=== PATIENT | female | born 1970 ===

== ENCOUNTER 2017-09-19 14:04 | Emergency (ER) | payer MEDICAID ==
[2017-09-19 14:04] VITALS: BMI 41.3
[2017-09-19 14:13] VITALS: BP 106/74; PULSE 87; RESP 16; TEMP 97; O2SAT 98
--- NOTE | 2017-09-19 14:24 | ED PDOC ---
Lower Extremity Pain/Injury Time Seen by Provider: 09/19/17 14:14 Chief Complaint (Nursing): Lower Extremity Problem/Injury Chief Complaint (Provider): Left heel pain History Per: Patient History/Exam Limitations: no limitations Onset/Duration Of Symptoms: Days (2) Current Symptoms Are (Timing): Still Present Additional Complaint(s): Patient is a 47 y/o female with a past medical history of diabetes and hypertension presenting to the emergency department for left heel pain x2 days. Reports that the pain started yesterday after stepping off of a bus and states that the pain begins in her left heel and radiates to her posterior left thigh. Denies any foreign body penetration, open wounds, or other complaints. PCP: Dr. Korey Frost Past Medical History Reviewed: Historical Data, Nursing Documentation, Vital Signs Vital Signs: Last Vital Signs Temp 97.0 F L 09/19/17 14:10 Pulse 87 09/19/17 14:10 Resp 16 09/19/17 14:10 BP 106/74 09/19/17 14:10 Pulse Ox 98 09/19/17 14:10 - Medical History PMH: Diabetes (Type I and II, diet controlled), GERD, HTN Denies: Asthma, Back Problems, Chronic Kidney Disease - Surgical History Surgical History: Cholecystectomy, Tonsillectomy (AGE 2) - Family History Family History: States: Unknown Family Hx - Immunization History Hx Tetanus Toxoid Vaccination: No Hx Influenza Vaccination: Yes Hx Pneumococcal Vaccination: Yes - Home Medications Home Medications: Ambulatory Orders Medication Instructions Recorded Hydrochlorothiazide/Valsarta 1 tab PO DAILY 01/21/14 [Diovan Hct 12.5 mg-160 mg] Omeprazole 40 mg PO DAILY 01/21/14 Multivit,Iron,Min 5/Folic Acid 1 tab PO HS 05/25/15 [Strovite Forte Caplet] Docusate Sodium [Colace] 100 mg PO DAILY PRN 11/08/15 Tramadol Hydrochloride [Tramadol] 50 mg PO Q8H PRN 11/08/15 Pantoprazole [Protonix] 40 mg PO DAILY #0 ect 11/09/15 oxyCODONE/Acetaminophen [Percocet 1 ea PO Q6 PRN #10 tab 08/27/16 5/325 mg Tab] Ibuprofen [Motrin] 400 mg PO Q6 #30 tab 09/19/17 - Allergies Allergies/Adverse Reactions: Allergies Allergy/AdvReac Type Severity Reaction Status Date / Time No Known Allergies Allergy Verified 01/21/17 14:14 Review of Systems ROS Statement: Except As Marked, All Systems Reviewed And Found Negative Musculoskeletal: Positive for: Foot Pain (left heel pain with no open wounds) Physical Exam - Reviewed Nursing Documentation Reviewed: Yes Vital Signs Reviewed: Yes - Physical Exam Appears: Positive for: Well, Non-toxic, No Acute Distress Head Exam: Positive for: ATRAUMATIC, NORMAL INSPECTION, NORMOCEPHALIC Skin: Positive for: Normal Color, Warm, Dry Eye Exam: Positive for: Normal appearance Neck: Positive for: Normal Cardiovascular/Chest: Positive for: Regular Rate, Rhythm Respiratory: Negative for: Accessory Muscle Use, Respiratory Distress Pulses-Dorsalis Pedis (L): 2+ Pulses-Dorsalis Pedis (R): 2+ Pulses-Post. Tibialis (L): 2+ Pulses-Post. Tibialis (R): 2+ Extremity: Positive for: Normal ROM, Calf Tenderness (left), Swelling (mild on left posterior foot compared to right foot) Neurologic/Psych: Positive for: Alert, Oriented (x3) - ECG O2 Sat by Pulse Oximetry: 98 (RA) Pulse Ox Interpretation: Normal Medical Decision Making Medical Decision Making: Time: 14:15 Initial impression: Left heel pain Initial plan: Left foot x-ray Duplex lower extremities 14:54 Left foot x-ray reviewed. Findings noted as follows: BONES: No fracture identified. Plantar calcaneal spur noted. JOINTS: Normal. SOFT TISSUES: Normal. OTHER FINDINGS: None. IMPRESSION: Unremarkable. US: negatie for DVT pt advised to f.u with pmd, anat surgical shoe and f./u with podiatry ~ Scribe Attestation: Documented by Naomi Tate, acting as a scribe for SHANEKA Mobley. Provider Scribe Attestation: All medical record entries made by the Scribe were at my direction and personally dictated by me. I have reviewed the chart and agree that the record accurately reflects my personal performance of the history, physical exam, medical decision making, and the department course for this patient. I have also personally directed, reviewed, and agree with the discharge instructions and disposition. Disposition - Clinical Impression Clinical Impression: Plantar fasciitis - Patient ED Disposition Is Patient to be Admitted: No Counseled Patient/Family Regarding: Studies Performed, Diagnosis, Need For Followup, Rx Given - Disposition Referrals: Podiatry Clinic [Outside] Disposition: Routine/Home Disposition Time: 18:13 Condition: STABLE Prescriptions: Ibuprofen [Motrin] 400 mg PO Q6 #30 tab Instructions: Plantar Fasciitis (ED) Print Language: TOGOLESE
--- NOTE | 2017-09-19 14:56 | RAD ---
PROCEDURE: Left Foot Radiographs. HISTORY: foot pain COMPARISON: None. FINDINGS: BONES: No fracture identified. Plantar calcaneal spur noted. JOINTS: Normal. SOFT TISSUES: Normal. OTHER FINDINGS: None. IMPRESSION: Unremarkable.
--- NOTE | 2017-09-19 18:20 | US ---
HISTORY: calf pain . PRIORS: None. FINDINGS: 2-D, color and duplex Doppler analysis of the lower extremity venous circulation using routine protocol from the femoral veins through the popliteal veins. Venous compressibility: Normal. Flow and augmentation patterns: Normal. Visualized veins upper third of calf: Normal. Rankin cyst: None. IMPRESSION: No sonographic or Doppler evidence for DVT in left lower extremity.
== END 2017-09-19 19:43 | disposition home or self-care (01) ==
LOC: H.ER 14:04
DX: M72.2 Plantar fascial fibromatosis (principal); I10 Essential (primary) hypertension; K21.9 Gastro-esophageal reflux disease without esophagitis; Z79.4 Long term (current) use of insulin

== ENCOUNTER 2017-11-20 07:29 | Day surgery (SDC) | payer MEDICAID ==
[2017-11-14 15:46] VITALS: BMI 43.5
[2017-11-20 08:54] VITALS: RESP 18
[2017-11-20] MEDS ORDERED: Lactated Ringer's 1,000 ML IV ONE ×2 (08:55→10:52)
[2017-11-20] MEDS ORDERED: Bupivacaine 0.5% Inj(30mL) IJ ONE (09:09)
[2017-11-20] MEDS ORDERED: Lidocaine 1% Inj (20ml) IJ ONE (09:09)
--- NOTE | 2017-11-20 09:09 | CP.PCM.PN ---
Subjective - Date & Time of Evaluation Date of Evaluation: 11/20/17 Time of Evaluation: 08:45 - Subjective Subjective: Podiatry Progress Note - Dr. Estevez 47 year old female patient PMHx HTN, DM, hypercholesterolemia seen and evaluated in [facility] for pre-operative evaluation for left tarsal tunnel decompression with excision of soft tissue mass by Dr. Estevez today. Patient has been having a lot of pain in her left foot, especially with ambulation, and has exhausted conservative treatment and now opts for surgical intervention. NPO status confirmed. Patient is NAD and AAOx3, denies n/v/f/c/sob/cp. Objective - Vital Signs/Intake and Output Vital Signs (last 24 hours): Temp Pulse Resp BP Pulse Ox 97.8 F 74 18 113/83 97 11/20/17 08:52 11/20/17 08:52 11/20/17 08:52 11/20/17 08:52 11/20/17 08:52 - Constitutional Appears: Well, Non-toxic, No Acute Distress - Extremities Exam Additional comments: VASC: DP and PT pulses palpable 2/4 b/l. CFT WNL. TG WNL. Perimalleolar edema noted. NEURO: Gross sensation intact. +Tinel's sign left foot DERM: No open lesions noted. Skin appears well hydrated. ORTHO: +Tinel's sign left foot - Neurological Exam Neurological Exam: Alert, Awake, Oriented x3 - Psychiatric Exam Psychiatric exam: Normal Affect, Normal Mood Assessment and Plan - Assessment and Plan (Free Text) Assessment: 47 year old female with tarsal tunnel syndrome and soft tissue mass to medial ankle, left foot Plan: Pt was seen and examined in [facility] Pt NPO status was confirmed All Pre-op testing and clearance was in the chart Pt has exhausted all conservative treatment at this time and is opting for surgical intervention Pt was explained procedure and post-operative course All pt's questions were answered to satisfaction No guarantees were made Pt understands all risks, benefits and complications of procedure Pt will follow-up with Dr. Estevez
--- NOTE | 2017-11-20 09:09 | CP.SDSHP ---
Same Day Surgery H & P - History Proposed Procedure: Left foot tarsal tunnel decompression, excision benign tumor/cyst Pre-Op Diagnosis: Left foot tarsal tunnel syndrome, soft tissue mass - Previous Medical/Surgical History Cardiac: Hypertension Endocrine/Metabolic: Diabetes, Obesity Pain: 4.Moderate Pain Previous Surgical History: Hysterectomy - Allergies Allergies: Allergies No Known Allergies Allergy (Verified 11/20/17 08:02) - Physical Exam Vital Signs: Vital Signs 11/20/17 08:52 Temperature 97.8 F Pulse Rate 74 Respiratory 18 Rate Blood Pressure 113/83 O2 Sat by Pulse 97 Oximetry Mental Status: Alert & Oriented x3 Neuro: WNL - {Optional Preform as Required} Integument: WNL : Other (positive Tinel's sign left foot) - Impression Impression: Pt was seen and examined in [facility]. Pt NPO status was confirmed. All Pre-op testing and clearance was in the chart. Pt has exhausted all conservative treatment at this time and is opting for surgical intervention. Pt was explained procedure and post-operative course. All pt's questions were answered to satisfaction. No guarantees were made. Pt understands all risks, benefits and complications of procedure. Pt will follow-up with Dr. Estevez Pt. Evaluated Today:Candidate for Anesthesia & Procedure: Yes Short Stay Discharge - Short Stay Discharge Admitting Diagnosis/Reason for Visit: G57.52/M79.9 Disposition: HOME/ ROUTINE Referrals: Korey Frost MD [Primary Care Provider] - Follow-up: Follow up in Dr. Estevez's office this 11/22/17 for first follow up visit Progress Note/Discharge Note with Instructions: -Patient in good/stable condition for discharge home -Pt to resume medications per medical reconciliation -Resume regular diet Please keep dressing clean, dry, & intact to surgical site -Use plastic bag over bandage for showering -Wear post op shoe at all times when ambulating -Call clinic if you see signs of infection (redness, swelling, malodor) -Please make an appointment to see Dr. Estevez in office this 11/22/17 for post-op check
[2017-11-20] MEDS ORDERED: ceFAZolin IV 1 gm in Dextrose 1 GM/50 ML BAG IVPB ONE (09:30)
[2017-11-20] MEDS ORDERED: Bupivacaine 0.5% Inj(30mL) ONE (09:30)
[2017-11-20] MEDS ORDERED: Lidocaine 1% Inj (20ml) ONE (09:30)
[2017-11-20] MEDS ORDERED: Midazolam 2 MG/2 ML VIAL ONE (09:43)
[2017-11-20] MEDS ORDERED: Propofol 10 mg/ml Inj (20 ML) ONE (09:43)
[2017-11-20] MEDS ORDERED: Succinylcholine 200 mg/10 ml Inj IV ONE (09:43)
[2017-11-20] MEDS ORDERED: Lidocaine 1% 5ml Abboject IV ONE (09:43)
[2017-11-20] MEDS ORDERED: Rocuronium 10 mg/ml (5 ml) ONE (09:43)
[2017-11-20] MEDS ORDERED: Bupivacaine 0.5% 50 ML IJ ONE (11:30)
[2017-11-20] MEDS ORDERED: Triamcinolone Acetonide 40 mg/mL Inj IM ONE (11:30)
--- NOTE | 2017-11-20 11:44 | PCM.SURG1 ---
Surgeon's Initial Post Op Note - Surgeon's Notes Surgeon: Dr. Estevez Solder Leveler [employer]: Claudia Campos, PGY2 Type of Anesthesia: General Endo Anesthesia Administered By: Dr. Joshi Pre-Operative Diagnosis: Left foot tarsal tunnel syndrome, soft tissue mass medial ankle Operative Findings: See operative report. Materials: Allowrap, 4-0 vicryl, 4-0 nylon. Injectables: 0.5% marcaine plain 20cc, Kenalog-40 1cc Post-Operative Diagnosis: Left foot tarsal tunnel syndrome, soft tissue mass medial ankle Operation Performed: Left tarsal tunnel release, excision of soft tissue mass Specimen/Specimens Removed: Soft tissue mass + adipose Estimated Blood Loss: EBL {In ML}: 1 Blood Products Given: N/A Drains Used: No Drains Post-Op Condition: Good Date of Surgery/Procedure: 11/20/17 Time of Surgery/Procedure: 09:45
[2017-11-20] MEDS ORDERED: Oxycodone/Acetaminophen 5/325 mg Tab PO PRN ×2 (11:47)
[2017-11-20] MEDS ORDERED: Lactated Ringer's 1,000 ML IV SCH (12:00)
[2017-11-20] MEDS ORDERED: HYDROmorphone 0.5 mg/0.5 ml ISec IVP PRN (12:00)
[2017-11-20 16:00] VITALS: BP 124/76; PULSE 78; TEMP 97.8; O2SAT 100
[2017-11-20] MEDS ORDERED: Multivitamin With Minerals Tab PO SCH (22:00)
[2017-11-21] MEDS ORDERED: Pantoprazole 40 mg EC Tab PO SCH (09:00)
[2017-11-21] MEDS ORDERED: HYDROCHLOROTHIAZIDE PO SCH (09:00)
[2017-11-21] MEDS ORDERED: [UNRECOGNIZED DRUG - OTHER] PO SCH (09:00)
--- NOTE | 2017-11-22 17:31 | OP ---
PROCEDURE DATE: 11/20/2017 SURGEON: Mustapha Estevez DPM JUNIOR ENGINEER: Claudia Campos DPM, PGY2 TYPE OF ANESTHESIA: General. ANESTHESIA ADMINISTERED BY: Leif Joshi MD. PREOPERATIVE DIAGNOSES: Left foot painful soft tissue mass and tarsal tunnel syndrome. POSTOPERATIVE DIAGNOSES: Left foot painful soft tissue mass and tarsal tunnel syndrome. PROCEDURE: Left foot excision of soft tissue mass and decompression of tarsal tunnel. INDICATIONS: The patient is a 47-year-old female with the above-mentioned diagnosis. The patient has exhausted multiple points of conservative treatment at this time and now requires surgical intervention. The patient signed the consent after careful explanation of risks, benefits, complications, and alternatives for surgical procedure. No guarantees were given or implied. PREPARATION: The patient was brought into the operating room and placed on the operating room table in a supine position. Time-out was performed for identification of the correct patient and procedure. After induction of general anesthesia, the left foot and ankle were then prepped and draped in normal sterile manner. Thigh tourniquet was inflated to 350 mmHg and the procedure began. DESCRIPTION OF PROCEDURE: Attention was directed to the left posterior heel where a 7 cm curvilinear incision was made, posterior and proximal to the tibia, down to the level of the navicular bone using a #15 blade. The incision was then deepened using sharp and blunt dissection through subcutaneous tissues, being careful to identify and retract all vital neurovascular structures. All bleeders were ligated and cauterized as necessary. The flexor retinaculum was then identified and released. At this time, the flexor tendons were identified and retracted dorsally. The posterior tibial nerve was then identified and with carefully dissection, a soft tissue mass was palpated and gently excised with a hemostat and tenotomy scissors. The soft tissue mass was then passed off of the operative field and sent to pathology. At this time, the wound was then copiously irrigated with sterile normal saline. A 4 x 4 cm allograft graft was then placed along the . The subcutaneous tissue was then reapproximated with 3-0 and 4-0 Vicryl and the skin was reapproximated with 4-0 nylon. A postoperative injection of 20 mL of 0.5% Marcaine plain and 1 mL of Kenalog-10 was given in a local block type fashion to the left foot. Postoperative bandages included Xeroform, 4x4 gauze, Merly, and Aris bandage. POSTOPERATIVE CONDITION: The patient tolerated the anesthesia and the procedure well and was escorted to the recovery room with vital signs stable and neurovascular status intact. The patient will follow up with Dr. Estevez in his office on an outpatient basis. Claudia Campos DPM Mustapha Estevez DPM
== END 2017-11-20 16:00 | disposition home or self-care (01) ==
LOC: H.OPSURG 07:29
PROVIDERS: ATTEND Podiatrist Foot & Ankle Surgery
DX: G57.52 Tarsal tunnel syndrome, left lower limb (principal); M79.9 Soft tissue disorder, unspecified; E66.9 Obesity, unspecified; E11.9 Type 2 diabetes mellitus without complications; E78.5 Hyperlipidemia, unspecified; I10 Essential (primary) hypertension
CPT/HCPCS: 28035; 28039; 82948; 88305; 97116; 97162; G8978; G8979; G8980; J0330; J0690; J1170; J2250; J2405; J2704; J3010; J3301; J7120

== ENCOUNTER 2018-02-01 14:28 | Inpatient (IN) | payer MEDICAID ==
[2018-02-01] MEDS ORDERED: Piperacillin/Tazobact 3.375 GM in Sodium Chloride 0.9% 100 ML IVPB STA (14:50)
[2018-02-01] MEDS ORDERED: Morphine 4 MG/ML VIAL IVP STA (14:51)
[2018-02-01] MEDS ORDERED: Piperacillin/Tazobact 3.375 gm Inj IVPB ONE (15:00)
[2018-02-01] MEDS ORDERED: Morphine 4 MG/ML VIAL ONE (15:00)
[2018-02-01 16:13] LABS: VENOUS BLOOD GAS BASE EXCESS 2.9 mmol/L (0.0-2.0); VENOUS BLOOD GAS PCO2 43 mmHg (40-60); VENOUS BLOOD GAS PO2 19 mm/Hg (30-55); VENOUS BLOOD PH 7.42 (7.32-7.43)
[2018-02-01] MEDS ORDERED: Sodium Chloride 0.9% 1,000 ML IV STA (16:30)
[2018-02-01 16:31] LABS: BASO % 0.4 % (0.0-2.0); EOS # 0.1 K/uL (0.0-0.7); EOS % 1.1 % (0.0-4.0); HEMOGLOBIN 14.2 g/dL (12.0-16.0); LYMPH # 1.6 K/uL (1.0-4.3); LYMPH % 20.5 % (20.0-40.0); MEAN CELL VOLUME 85.8 fl (81.0-99.0); MEAN CORPUSCULAR HEMOGLOBIN 29.8 pg (27.0-31.0); MEAN CORPUSCULAR HGB CONC 34.7 g/dL (33.0-37.0); MONO # 0.4 K/uL (0.0-0.8); MONO % 5.6 % (0.0-10.0); NEUT # 5.6 K/uL (1.8-7.0); NEUT % 72.4 % (50.0-75.0); NRBC % 0.1 % (0.0-0.0); RBC 4.76 Mil/uL (3.80-5.20); RED CELL DISTRIBUTION WIDTH 14.2 % (11.5-14.5); WHITE BLOOD COUNT 7.7 K/uL (4.8-10.8)
[2018-02-01 16:49] LABS: ALB/GLOB RATIO 1.1 (1.0-2.1); ALBUMIN 4.2 g/dL (3.5-5.0); ALT/SGPT 37 U/L (9-52); AST/SGOT 30 U/L (14-36); BLOOD UREA NITROGEN 20 mg/dl (7-17); CALCIUM 9.9 mg/dL (8.4-10.2); GFR AFRICAN-AMERICAN > 60; GFR NON-AFRICAN AMERICAN > 60
[2018-02-01] MEDS ORDERED: Enoxaparin 120 mg Syringe SC STA (17:06)
--- NOTE | 2018-02-01 17:39 | ED PDOC ---
HPI: General Adult Time Seen by Provider: 02/01/18 14:38 Chief Complaint (Nursing): Lower Extremity Problem/Injury History Per: Patient Additional Complaint(s): Pt. states for the past 2 weeks she's had L calf pain. States on 11/19/2018 she had a benign tumor removed from her L ankle by Dr. Estevez, senior information developer. States she went to see Dr. Estevez on and informed him of the pain and today pain became wore. Also reports surgical wound has opened. Denies fever, chest pain, SOB, palpitations, hx of DVT or PE. Past Medical History Reviewed: Historical Data, Nursing Documentation, Vital Signs Vital Signs: Last Vital Signs Temp 98.3 F 02/01/18 18:04 Pulse 96 H 02/01/18 18:04 Resp 15 02/01/18 18:04 BP 104/56 L 02/01/18 18:35 Pulse Ox 100 02/01/18 19:50 - Medical History PMH: Arthritis, Diabetes (Type I and II, diet controlled), Gastritis, GERD, HTN Denies: Asthma, Back Problems, Chronic Kidney Disease - Surgical History Surgical History: Cholecystectomy, Tonsillectomy (AGE 2) - Family History Family History: States: No Known Family Hx - Immunization History Hx Tetanus Toxoid Vaccination: No Hx Influenza Vaccination: Yes Hx Pneumococcal Vaccination: Yes - Home Medications Home Medications: Ambulatory Orders Medication Instructions Recorded Hydrochlorothiazide/Valsarta 1 tab PO DAILY 01/21/14 [Diovan Hct 12.5 mg-160 mg] Omeprazole 40 mg PO DAILY 01/21/14 Multivit,Iron,Min 5/Folic Acid 1 tab PO HS 05/25/15 [Strovite Forte Caplet] Docusate Sodium [Colace] 100 mg PO DAILY PRN 11/08/15 Repaglinide [Prandin] 2 mg PO TID 11/20/17 - Allergies Allergies/Adverse Reactions: Allergies Allergy/AdvReac Type Severity Reaction Status Date / Time No Known Allergies Allergy Verified 11/20/17 08:02 Review of Systems ROS Statement: Except As Marked, All Systems Reviewed And Found Negative Musculoskeletal: Positive for: Leg Pain Physical Exam - Reviewed Nursing Documentation Reviewed: Yes Vital Signs Reviewed: Yes - Physical Exam Appears: Positive for: Well, Non-toxic, No Acute Distress Head Exam: Positive for: ATRAUMATIC, NORMAL INSPECTION, NORMOCEPHALIC Skin: Positive for: Normal Color, Warm. Negative for: Rash Eye Exam: Positive for: EOMI, Normal appearance, PERRL ENT: Positive for: Normal ENT Inspection Neck: Positive for: Normal, Painless ROM Cardiovascular/Chest: Positive for: Regular Rate, Rhythm. Negative for: Tachycardia Respiratory: Positive for: Normal Breath Sounds. Negative for: Respiratory Distress Gastrointestinal/Abdominal: Positive for: Normal Exam, Bowel Sounds, Soft. Negative for: Tenderness Back: Positive for: Normal Inspection Extremity: Positive for: Normal ROM, Other (L medial foot with open wound and yellow discharge noted with mild surrounding erythema or edema noted) Neurologic/Psych: Positive for: Alert, Oriented. Negative for: Aphasia, Facial Droop - Laboratory Results Result Diagrams: 02/01/18 15:17 02/01/18 15:17 - ECG O2 Sat by Pulse Oximetry: 100 - Progress ED Course And Treament: Labs ordered. Pt. evaluated by Jennifer podiatry resident, who spoke with Dr. Estevez and requests ESR, CRP, Zosyn, Vancomycin, and duplex LLE to be done. Pt. placed on surveillance monitor. 1630 Repeat BP: 97/53. Pt. AOx3. Denies weakness, chest pain, SOB. Pt. in no distress. IV NS bolus ordered. 163 Duplex LLE vein: Evidence of DVT within the superficial femoral and popliteal veins as above. The common femoral and posterior tibial veins are patent. Case d/w Dr. Hopson who recommends Lovenox and CTA of chest w/ IV contrast to be ordered. Lovenox ordered. Repeta BP: 102/77 1745 Case d/w Dr. Shine and arrangements made for admission. 1940 CTA chest w/ IV contrast: Limited examination due to inadequate contrast opacification of the pulmonary arterial system/bolus timing.No evidence of acute pulmonary embolism up to the proximal lobar level.evaluation beyond the lobar level cannot be made with accuracy in this examination. Correlate clinically. Disposition - Clinical Impression Clinical Impression: Deep vein thrombosis, Surgical wound infection - Patient ED Disposition Is Patient to be Admitted: Yes - Disposition Disposition Time: 17:45 Condition: STABLE
--- NOTE | 2018-02-01 17:41 | US ---
PROCEDURE: Left lower extremity DVT dated 02/01/2018 HISTORY: as requested by Dr. Estevez COMPARISON: Comparison made with prior study dated 09/19/2017 TECHNIQUE: Duplex interrogation of the the deep veins left lower extremity performed in standard FINDINGS: The common femoral vein is patent and compressible. The the supra official femoral vein as well as popliteal vein contain echogenic thrombus an are not compressible. Posterior tibial vein is patent. IMPRESSION: Evidence of DVT within the superficial femoral and popliteal veins as above. The common femoral and posterior tibial veins are patent.
[2018-02-01 18:05] LABS: SQUAMOUS EPITHIAL 12 /hpf (0-5); URINE BACTERIA OCC (<OCC); URINE BILIRUBIN NEGATIVE (NEGATIVE); URINE BLOOD NEGATIVE (NEGATIVE); URINE CLARITY CLOUDY (Clear); URINE COLOR YELLOW (YELLOW); URINE GLUCOSE (UA) NEG (Normal); URINE LEUKOCYTE ESTERASE NEG Leu/uL (Negative); URINE PROTEIN NEGATIVE (NEGATIVE); URINE UROBILINOGEN 0.2-1.0 mg/dL (0.2-1.0)
[2018-02-01 18:06] LABS: PARTIAL THROMBOPLASTIN TIME 32.3 Seconds (25.6-37.1)
[2018-02-01] MEDS ORDERED: HYDROmorphone 0.5 mg/0.5 ml ISec IVP STA (18:18)
[2018-02-01] MEDS ORDERED: Iodixanol 320 MG/ML 100 ML BOTTLE IV ONE (18:20)
[2018-02-01] MEDS ORDERED: Silver Sulfadiazine 1% CREAM (50 gm) TOP STA (18:21)
[2018-02-01] MEDS ORDERED: Silver Sulfadiazine 1% CREAM (50 gm) ONE (18:23)
[2018-02-01] MEDS ORDERED: HYDROmorphone 0.5 mg/0.5 ml ISec ONE (18:37)
--- NOTE | 2018-02-01 19:49 | CP.PCM.CON ---
History of Present Illness - History of Present Illness History of Present Illness: Podiatry Consult Note - Dr. Estevez 48 year old female patient PMHx HTN, DM, hypercholesterolemia seen and evaluated in ED for nonhealing wound to left ankle and left calf pain. Patient was sent to ED by Dr. Estevez. Patient had left tarsal tunnel release with removal of soft tissue mass 11/20/17 and was healing well; as pain started to diminish patient started to ambulate with CAM walker while she was supposed to be NWB. At this time, her surgical wound dehisced. A wound vac was placed for 2 weeks however vac malfunctioned but was left in place for [address] Estevez, patient was placed on Bactrim last week but has not alleviated any redness. Currently, patient reports 10/10 pain to medial left ankle. Patient also complaining of left calf pain ongoing for the past 2 weeks; patient saw Dr. Estevez last , 01/30/18 and informed him of pain, so was told to present to [facility] ED. Denies N/V/F/D/C/SOB. Review of Systems - Review of Systems All systems: reviewed and no additional remarkable complaints except (as per HPI ) Past Patient History - Infectious Disease Hx of Infectious Diseases: None - Past Medical History & Family History Past Medical History?: Yes - Past Social History Smoking Status: Never Smoked - CARDIAC Hx Hypertension: Yes - PULMONARY Hx Asthma: No - NEUROLOGICAL Hx Neurological Disorder: Yes Other/Comment: TINGLING LEFT FOOT - HEENT Hx HEENT Problems: No - RENAL Hx Chronic Kidney Disease: No - ENDOCRINE/METABOLIC Hx Endocrine Disorders: Yes Hx Diabetes Mellitus Type 1: Yes Hx Diabetes Mellitus Type 2: Yes - HEMATOLOGICAL/ONCOLOGICAL Hx Blood Disorders: No Hx Cancer: Yes (UTERINE) - INTEGUMENTARY Hx Dermatological Problems: No - MUSCULOSKELETAL/RHEUMATOLOGICAL Hx Arthritis: Yes - GASTROINTESTINAL Hx Gastritis: Yes - GENITOURINARY/GYNECOLOGICAL Hx Genitourinary Disorders: No - PSYCHIATRIC Hx Psychophysiologic Disorder: No Hx Emotional Abuse: No Hx Physical Abuse: No Hx Substance Use: No - SURGICAL HISTORY Hx Cholecystectomy: Yes Hx Tonsillectomy: Yes (AGE 2) - ANESTHESIA Hx Anesthesia: Yes Hx Anesthesia Reactions: No Hx Malignant Hyperthermia: No Meds Allergies/Adverse Reactions: Allergies Allergy/AdvReac Type Severity Reaction Status Date / Time No Known Allergies Allergy Verified 11/20/17 08:02 Physical Exam - Constitutional Appears: Well, Non-toxic, No Acute Distress - Extremities Exam Additional comments: LLE focused physical exam: VASC: DP pulse palpable 2/4. PT pulse unable to be obtained. CFT <3 seconds to all digits. Temperature gradient warm to warm, increase in warmth medial ankle periwound. Nonpitting edema noted to ankle and foot. NEURO: Gross sensation intact, hyperesthesia medial ankle DERM: Surgical wound to medial ankle appears dehisced with defect measuring approximately 5 x 1.5 cm; wound is noted to have a 90% fibrotic and 10% necrotic base and erythema/deep rubor periwound; sutures remain within wound bed ; malodor present; serosanguinous drainage noted. ORTHO: Severe pain on palpation medial ankle. Pain upon calf squeeze. Absent palpable cord. - Neurological Exam Neurological exam: Alert, Oriented x3 - Psychiatric Exam Psychiatric exam: Normal Affect, Normal Mood Results - Vital Signs Recent Vital Signs: Last Vital Signs Temp 98.3 F 02/01/18 18:04 Pulse 96 H 02/01/18 18:04 Resp 15 02/01/18 18:04 BP 104/56 L 02/01/18 18:35 Pulse Ox 100 02/01/18 18:04 - Labs Result Diagrams: 02/01/18 15:17 02/01/18 15:17 Labs: Laboratory Results - last 24 hr 02/01/18 02/01/18 02/01/18 15:17 15:17 16:04 WBC 7.7 RBC 4.76 Hgb 14.2 Hct 40.9 MCV 85.8 MCH 29.8 MCHC 34.7 RDW 14.2 Plt Count 305 MPV 8.0 Neut % (Auto) 72.4 Lymph % (Auto) 20.5 [place] % (Auto) 5.6 Eos % (Auto) 1.1 Baso % (Auto) 0.4 Neut # (Auto) 5.6 Lymph # (Auto) 1.6 [place] # (Auto) 0.4 Eos # (Auto) 0.1 Baso # (Auto) 0.0 ESR PT INR APTT pO2 19 L VBG pH 7.42 VBG pCO2 43 VBG HCO3 25.4 VBG Total CO2 29.2 H VBG O2 Sat (Calc) 38.1 L VBG Base Excess 2.9 H VBG Potassium 3.8 Glucose 107 H Lactate 1.9 FiO2 21.0 Sodium 139 133.0 Potassium 3.9 Chloride 98 101.0 Carbon Dioxide 27 Anion Gap 18 BUN 20 H Creatinine 0.8 Est GFR ( Amer) > 60 Est GFR (Non-Af Amer) > 60 POC Glucose (mg/dL) Random Glucose 108 H Calcium 9.9 Total Bilirubin 0.5 AST 30 ALT 37 Alkaline Phosphatase 145 H Total Protein 8.0 Albumin 4.2 Globulin 3.9 Albumin/Globulin Ratio 1.1 Venous Blood Potassium 3.8 Urine Color Urine Clarity Urine pH Ur Specific [place] Urine Protein Urine Glucose (UA) Urine Ketones Urine Blood Urine Nitrate Urine Bilirubin Urine Urobilinogen Ur Leukocyte Esterase Urine RBC (Auto) Urine Microscopic WBC Ur Squamous Epith Cells Urine Bacteria BBK History Checked 02/01/18 02/01/18 02/01/18 16:24 16:39 17:32 WBC RBC Hgb Hct MCV MCH MCHC RDW Plt Count MPV Neut % (Auto) Lymph % (Auto) [place] % (Auto) Eos % (Auto) Baso % (Auto) Neut # (Auto) Lymph # (Auto) [place] # (Auto) Eos # (Auto) Baso # (Auto) ESR 86 H PT INR APTT pO2 VBG pH VBG pCO2 VBG HCO3 VBG Total CO2 VBG O2 Sat (Calc) VBG Base Excess VBG Potassium Glucose Lactate FiO2 Sodium Potassium Chloride Carbon Dioxide Anion Gap BUN Creatinine Est GFR ( Amer) Est GFR (Non-Af Amer) POC Glucose (mg/dL) 97 Random Glucose Calcium Total Bilirubin AST ALT Alkaline Phosphatase Total Protein Albumin Globulin Albumin/Globulin Ratio Venous Blood Potassium Urine Color Urine Clarity Urine pH Ur Specific [place] Urine Protein Urine Glucose (UA) Urine Ketones Urine Blood Urine Nitrate Urine Bilirubin Urine Urobilinogen Ur Leukocyte Esterase Urine RBC (Auto) Urine Microscopic WBC Ur Squamous Epith Cells Urine Bacteria BBK History Checked Patient has bt 02/01/18 02/01/18 17:32 17:32 WBC RBC Hgb Hct MCV MCH MCHC RDW Plt Count MPV Neut % (Auto) Lymph % (Auto) [place] % (Auto) Eos % (Auto) Baso % (Auto) Neut # (Auto) Lymph # (Auto) [place] # (Auto) Eos # (Auto) Baso # (Auto) ESR PT 11.0 INR 1.0 APTT 32.3 pO2 VBG pH VBG pCO2 VBG HCO3 VBG Total CO2 VBG O2 Sat (Calc) VBG Base Excess VBG Potassium Glucose Lactate FiO2 Sodium Potassium Chloride Carbon Dioxide Anion Gap BUN Creatinine Est GFR ( Amer) Est GFR (Non-Af Amer) POC Glucose (mg/dL) Random Glucose Calcium Total Bilirubin AST ALT Alkaline Phosphatase Total Protein Albumin Globulin Albumin/Globulin Ratio Venous Blood Potassium Urine Color Yellow Urine Clarity Cloudy Urine pH 6.0 Ur Specific [place] 1.015 Urine Protein Negative Urine Glucose (UA) Neg Urine Ketones Negative Urine Blood Negative Urine Nitrate Negative Urine Bilirubin Negative Urine Urobilinogen 0.2-1.0 Ur Leukocyte Esterase Neg Urine RBC (Auto) 1 Urine Microscopic WBC 2 Ur Squamous Epith Cells 12 H Urine Bacteria Occ H BBK History Checked Assessment & Plan - Assessment and Plan (Free Text) Assessment: 48 year old female with 1) infected surgical wound left ankle 2) LLE DVT within superficial femoral and popliteal veins Plan: Patient seen and evaluated with attending, Dr. Estevez Afebrile, tachycardic 96-108, WBC 7.7 LLE venous duplex: DVT within superficial femoral and popliteal veins Chest CT ordered r/o PE Lovenox 110mc SC given in ED Left ankle WCx obtained 1 dose of Zosyn 3.375g IV and Vancomycin 1g IV given in ED Silvadene applied to wound and dressed with DSD Pain control per ED Patient to be admitted for continued IV abx Podiatry will continue to follow while in house
[2018-02-01] MEDS: Multivitamin With Minerals Tab PO SCH (22:31)
[2018-02-01] MEDS: Insulin Regular 100 units/ml SC SCH (22:33)
[2018-02-02] MEDS: Piperacillin/Tazobact 3.375 GM in Sodium Chloride 0.9% 100 ML IVPB SCH ×3 (00:58→18:06)
[2018-02-02 01:28] VITALS: BMI 45.8
[2018-02-02] MEDS: Insulin Regular 100 units/ml SC SCH ×4 (06:27→22:20)
[2018-02-02 06:34] LABS: HEMOGLOBIN 11.9 g/dL (12.0-16.0); MEAN CELL VOLUME 86.3 fl (81.0-99.0); MEAN CORPUSCULAR HEMOGLOBIN 29.1 pg (27.0-31.0); MEAN CORPUSCULAR HGB CONC 33.7 g/dL (33.0-37.0); RBC 4.08 Mil/uL (3.80-5.20); RED CELL DISTRIBUTION WIDTH 13.8 % (11.5-14.5); WHITE BLOOD COUNT 7.6 K/uL (4.8-10.8)
[2018-02-02 06:36] LABS: ALBUMIN 3.5 g/dL (3.5-5.0); ALT/SGPT 41 U/L (9-52); AST/SGOT 25 U/L (14-36); BLOOD UREA NITROGEN 17 mg/dl (7-17); GFR AFRICAN-AMERICAN > 60; GFR NON-AFRICAN AMERICAN > 60; HDL CHOLESTEROL 31 MG/DL (30-70)
[2018-02-02 06:47] LABS: LDL CHOLESTEROL 124 mg/dL (0-129)
[2018-02-02 07:09] LABS: T3 1.03 nmol/L (1.49-2.60)
--- NOTE | 2018-02-02 08:26 | HP ---
CHIEF COMPLAINT: Pain in the legs. HISTORY OF PRESENT ILLNESS: This is a 48-year-old female known to have morbid obesity, arthritis, diabetes, hypertension, and gastroenteritis, who recently underwent tumor removal from her left leg ankle area by Dr. Estevez and was recovering okay, but then started having pain, which got worse, so the patient was sent to Emergency Room and was admitted for further management. REVIEW OF SYSTEMS: Positive for left leg pain. Review of systems otherwise is negative for headache, dizziness, syncope, loss of consciousness, chest pain, shortness of breath, nausea, vomiting, diarrhea or constipation. Review of systems of all other organ system is unremarkable. PAST MEDICAL HISTORY: Significant for diabetes, hypertension, gastritis, morbid obesity, and arthritis. PAST SURGICAL HISTORY: Remarkable for recent ankle surgery for removal of benign tumor, gallbladder surgery, and tonsillectomy. PERSONAL HISTORY: The patient is currently nonsmoker, nondrinker, and no substance abuse. MEDICATIONS: The patient is on valsartan, hydrochlorothiazide, omeprazole, multivitamin, Prandin, and Colace. ALLERGIES: THE PATIENT IS NOT ALLERGIC TO ANY MEDICATIONS. FAMILY HISTORY: Noncontributory. PHYSICAL EXAMINATION: GENERAL: A well-built and well-nourished morbidly obese 48-year-old female, in no acute distress. VITAL SIGNS: Temperature 98.9, pulse 99 respirations 18, blood pressure 94/58, and saturations 99%. HEENT: Pupils are reactive to light. No JVD. No thyromegaly. No lymphadenopathy. No nystagmus. Normocephalic and atraumatic skull. HEART: S1 and S2, normal and regular. No significant murmur, gallop or rub is heard. LUNGS: Exam shows good bilateral air exchange. No rales, no rhonchi. ABDOMEN: Soft and nontender. No organomegaly. No fluid. Bowel sounds are plus and normal. EXTREMITIES: Left lower extremity has an ulcer with surrounding area of cellulitis. No distal neurovascular compromise. No calf swelling, no tenderness, no acute ischemia, but the patient does seem to be on deep palpation under calf area. STUDIO GRIP: Essentially changed. DIAGNOSTIC DATA: Available diagnostic data reviewed. WBC 7.6, hemoglobin 11.9, hematocrit 37.2, and platelets 259,000. ESR is 86. PT 11 and PTT 32. Sodium 136, potassium 4.2, chloride 101, bicarb 23, BUN 17, and creatinine . C-reactive protein is 15. Cultures are pending. Podiatry consult noted and appreciated. ADMITTING IMPRESSION: Cellulitis of left lower extremity, deep venous thrombosis of left calf, morbid obesity with body mass index of 45, type 2 diabetes, and hypertension. PLAN: Plan as ordered. Case and plan discussed with the patient. Steve Shine MD
[2018-02-02] MEDS ORDERED: Oxycodone/Acetaminophen 5/325 mg Tab PO ONE ×2 (08:53)
[2018-02-02] MEDS ORDERED: HYDROCHLOROTHIAZIDE PO SCH (09:00)
[2018-02-02] MEDS: Lidocaine 5% Patch TD SCH (09:00)
[2018-02-02] MEDS ORDERED: [UNRECOGNIZED DRUG - OTHER] PO SCH (09:00)
[2018-02-02] MEDS ORDERED: Enoxaparin 120 mg Syringe SC SCH (09:00)
[2018-02-02] MEDS ORDERED: Oxycodone/Acetaminophen 5/325 mg Tab PO PRN (09:10)
[2018-02-02] MEDS ORDERED: Lidocaine 2% Jelly (Uro-Jet) TOP ONE (09:24)
[2018-02-02] MEDS ORDERED: Cadexomer Iodine 0.9% 40 APPLIC/40 G TUBE TOP ONE (09:29)
--- NOTE | 2018-02-02 09:33 | CP.PCM.PN ---
Subjective - Date & Time of Evaluation Date of Evaluation: 02/02/18 Time of Evaluation: 09:33 - Subjective Subjective: Podiatry Progress Note - Dr. Estevez 48 year old female patient PMHx HTN, DM, hypercholesterolemia seen and evaluated at bedside for infected surgical wound left ankle. No acute events overnight. Patient reports continued severe pain to left ankle; also complains of pain in her left calf. Patient apprehensive to have dressing changed, requesting pain medication. Dressing clean/dry/intact. Denies N/V/F/D/C/SOB. Objective - Vital Signs/Intake and Output Vital Signs (last 24 hours): Temp Pulse Resp BP Pulse Ox 99.2 F 100 H 18 96/63 L 95 02/02/18 07:48 02/02/18 07:48 02/02/18 07:48 02/02/18 07:48 02/02/18 07:48 - Medications Medications: Current Medications Acetaminophen (Tylenol 325mg Tab) 650 mg PO Q4 PRN PRN Reason: Pain, Mild (1-3) Cadexomer Iodine (Iodosorb) 1 applic TOP ONCE ONE Stop: 02/02/18 09:30 Docusate Sodium (Colace) 100 mg PO DAILY PRN PRN Reason: Constipation Enoxaparin Sodium (Lovenox) 110 mg SC DAILY NOELLE PRN Reason: Protocol Hydrochlorothiazide (Microzide) 12.5 mg PO DAILY NOELLE Hydromorphone HCl (Dilaudid) 1 mg IVP Q6 PRN PRN Reason: Pain, severe (8-10) Last Admin: 02/02/18 04:52 Dose: 1 mg Piperacillin Sod/Tazobactam (Sod 3.375 gm/ Sodium Chloride) 100 mls @ 100 mls/ hr IVPB Q8 NOELLE PRN Reason: Protocol Last Admin: 02/02/18 00:58 Dose: 100 mls/hr Vancomycin HCl 1 gm/ Sodium (Chloride) 250 mls @ 166.667 mls/hr IVPB DAILY NOELLE PRN Reason: Protocol Insulin Human Regular (Humulin R) 0 units SC ACCU-CHECK NOELLE PRN Reason: Protocol Last Admin: 02/02/18 06:27 Dose: Not Given Lidocaine (Lidoderm) 1 ea TD DAILY NOELLE Lidocaine HCl (Xylocaine 2% (Uro-Jet)) 0 ea TOP ONCE ONE Stop: 02/02/18 09:25 Multivitamins/Minerals (Therapeutic-M Tab) 1 tab PO HS NOELLE Last Admin: 02/01/18 22:31 Dose: 1 tab Oxycodone/Acetaminophen (Percocet 5/325 Mg Tab) 0 tab PO ONCE ONE Stop: 02/02/18 08:54 Oxycodone/Acetaminophen (Percocet 5/325 Mg Tab) 1 tab PO Q6 PRN PRN Reason: Pain, moderate (4-7) Stop: 02/05/18 09:11 Pantoprazole Sodium (Protonix Ec Tab) 40 mg PO DAILY NOELLE Repaglinide (Prandin) 2 mg PO TID NOELLE Valsartan (Diovan) 160 mg PO DAILY NOELLE - Labs Labs: 02/02/18 04:57 02/02/18 04:57 PT 11.0 Seconds (9.8-13.1) 02/01/18 17:32 INR 1.0 (0.9-1.2) 02/01/18 17:32 APTT 32.3 Seconds (25.6-37.1) 02/01/18 17:32 - Constitutional Appears: Well, Non-toxic, No Acute Distress - Extremities Exam Additional comments: LLE focused physical exam: VASC: DP pulse palpable 2/4. PT pulse unable to be obtained due to location of wound. CFT <3 seconds to all digits. Temperature gradient warm to warm, increase in warmth medial ankle periwound. Nonpitting edema noted to ankle and foot. NEURO: Gross sensation intact, hyperesthesia medial ankle. DERM: Surgical wound to medial ankle appears dehisced with defect measuring approximately 5 x 1.5 cm; wound is noted to have a 90% fibrotic and 10% necrotic base and erythema/deep rubor periwound, extending 2cm circumfirentially ; sutures remain within wound bed; malodor present; serosanguinous drainage noted. ORTHO: Severe pain on palpation medial ankle. Pain upon calf squeeze. Absent palpable cord. - Neurological Exam Neurological Exam: Alert, Awake, Oriented x3 - Psychiatric Exam Psychiatric exam: Anxious Assessment and Plan - Assessment and Plan (Free Text) Assessment: 48 year old female with 1) infected surgical wound left ankle 2) LLE DVT within superficial femoral and popliteal veins Plan: Patient seen and evaluated with attending, Dr. Estevez Afebrile, tachycardic 99-111, WBC 7.6, ESR 86 f/u CRP LLE venous duplex (02/01/18): DVT within superficial femoral and popliteal veins Chest CT ordered r/o PE (02/01/18): Limited study due to suboptimal opacification and large body habitus demonstrating no acute central pulmonary embolus; no acute consolidation, mild atelectasis both posterior lower lung zones Lovenox 110mc SC QD; DVT management per primary team LLE MRI ordered Left ankle WCx - (prelim) gram positive cocci ID consulted - Vancomycin 1g IV, Zosyn 3.375g IV, f/u cultures Continue local wound care - Silvadene, DSD -Iodosorb ordered for QOD dressing, Lidocaine jelly ordered prn pain Pain management - Lidoderm TD, Percocet 1 tab PO breakthrough, Dilaudid 1mg IV Podiatry will continue to follow while in house
--- NOTE | 2018-02-02 10:02 | CT ---
PROCEDURE: CT Chest with contrast (Pulmonary Angiogram) HISTORY: , tachycardia COMPARISON: None available. TECHNIQUE: Axial computed tomography images were obtained of the chest in the pulmonary arterial phase of enhancement. Coronal and sagittal reformatted images were created and reviewed. Note the examination is limited data due to suboptimal opacification and large body habitus with streak and beam hardening artifact. Intravenous contrast dose: 98 cc of Visipaque 320 contrast material. Radiation dose: Total exam DLP = 464.29 mGy-cm. This CT exam was performed using one or more of the following dose reduction techniques: Automated exposure control, adjustment of the mA and/or kV according to patient size, and/or use of iterative reconstruction technique. FINDINGS: PULMONARY ARTERIES: Visualized pulmonary trunk, right and left main, lobar and proximal sub segmental branches of the pulmonary arteries are opacified with no definitive filling defects. The subsegmental branches are poorly delineated. Pulmonary trunk measures approximately 2.03 cm. AORTA: No acute findings. No thoracic aortic aneurysm. Ascending thoracic aorta measures approximately 3.57 cm and descending thoracic aorta measures approximately 2.27 cm. LUNGS: Unremarkable. No nodule, mass or pulmonary consolidation. PLEURAL SPACES: Unremarkable. No effusion or pneumothorax. HEART: Unremarkable. No cardiomegaly. No significant pericardial effusion. LYMPH NODES: No significant mediastinal or hilar lymphadenopathy. BONES, CHEST WALL: In minor multilevel degenerative spondylosis of the thoracic spine. OTHER FINDINGS: There is small hiatal hernia with wall thickening of the distal esophagus likely due to protrusion of gastric mucosa. The thyroid gland is heterogeneous with at least 2 vague small low-attenuation foci left lobe thyroid gland. . Recommend follow-up thyroid ultrasound. IMPRESSION: Limited study demonstrating no large acute central pulmonary embolus. No acute consolidation however there does appear to be some mild atelectasis both posterior lower lung zones. The thyroid gland is heterogeneous with at least 2 vague small low-attenuation foci left lobe thyroid gland. . Recommend follow-up thyroid ultrasound.
[2018-02-02] MEDS ORDERED: Lidocaine 2% GEL TOP ONE (10:15)
[2018-02-02] MEDS: Pantoprazole 40 mg EC Tab PO SCH (11:07)
--- NOTE | 2018-02-02 11:51 | CP.PCM.CON ---
History of Present Illness - History of Present Illness History of Present Illness: 48 year old female patient seen for nonhealing wound to left ankle and left calf pain.. Patient had left tarsal tunnel release with removal of soft tissue mass 11/20/17 and was healing well; as pain started to diminish patient started to ambulate with CAM walker while she was supposed to be NWB. At this time, her surgical wound dehisced. A wound vac was placed for 2 weeks however vac malfunctioned but was left in place for [address] Estevez, patient was placed on Bactrim last week but has not alleviated any redness. Currently, patient reports 10/10 pain to medial left ankle. Patient also complaining of left calf pain ongoing for the past 2 weeks diagnosed with cellulitis left medial foot, DVT IV rx in progress PMH HTN DM Review of Systems - Review of Systems All systems: reviewed and no additional remarkable complaints except - Constitutional Constitutional: As Per HPI - EENT Eyes: absent: As Per HPI, Blind Spots, Blurred Vision, Change in Vision, Decreased Night Vision, Diplopia, Discharge, Dry Eye, Exophthalmos, Floaters, Irritation, Itchy Eyes, Loss of Peripheral Vision, Pain, Photophobia, Requires Corrective Lenses, Sees Flashes, Spots in Vision, Tunnel Vision, Other Visual Disturbances, Loss of Vision, Other Ears: absent: As Per HPI, Decreased Hearing, Ear Discharge, Ear Pain, Tinnitus, Abnormal Hearing, Disequilibrium, Dizziness, Other Nose/Mouth/Throat: absent: As Per HPI, Epistaxis, Nasal Congestion, Nasal Discharge, Nasal Obstruction, Nasal Trauma, Nose Pain, Post Nasal Drip, Sinus Pain, Sinus Pressure, Bleeding Gums, Change in Voice, Dental Pain, Dry Mouth, Dysphagia, Halitosis, Hoarsness, Lip Swelling, Mouth Lesions, Mouth Pain, Odynophagia, Sore Throat, Throat Swelling, Tongue Swelling, Facial Pain, Neck Pain, Neck Mass, Other - Breasts Breasts: absent: As Per HPI, Change in Shape, Mass, Pain, Nipple Discharge, Nipple Inversion, Skin Changes, Swelling, Other - Cardiovascular Cardiovascular: As Per HPI - Respiratory Respiratory: absent: As Per HPI, Cough, Dyspnea, Hemoptysis, Dyspnea on Exertion , Wheezing, Snoring, Stridor, Pain on Inspiration, Chest Congestion, Excessive Mucous Production, Change in Mucous Color, Pain with Coughing, Other - Gastrointestinal Gastrointestinal: absent: As Per HPI, Abdominal Pain, Belching, Bloating, Change in Bowel Habits, Change in Stool Character, Coffee Ground Emesis, Constipation, Cramping, Diarrhea, Dyspepsia, Dysphagia, Early Satiety, Excessive Flatus, Fecal Incontinence, Heartburn, Hematemesis, Hematochezia, Loose Stools, Melena, Nausea, Odynophagia, Temesmus, Vomiting, Other - Genitourinary Genitourinary: absent: As Per HPI, Change in Urinary Stream, Difficulty Urinating, Dysuria, Flank Pain, Hematuria, Pyuria, Nocturia, Urinary Incontinence, Urinary Frequency, Urinary Hesitance, Urinary Urgency, Voiding Freq/Small Amts, Freq UTI, Hx Renal/Bladder Calculi, Hx /Renal Surgery, Bladder Distension, Other - Reproductive: Female Reproductive:Female: absent: As Per HPI, Amenorrhea, Amenorrhea/ Control, Currently Menstual, Cycle <21 Days, Cycle >35 Days, Cycle Variable, Menses 1-7 Days, Menses >/= 8 Days, Menses Variable, Cycle > 4 Weeks Between, No Menses for 6 Months, Heavy Menses, Light Menses, Normal Menses, Spotting Between Cycles , S/P Hysterectomy, Menopausal, Post Menopausal, Premenarche, Abnormal Vaginal Bleeding, Dysmenorrhea, Dyspareunia, Genital Lesions, Genital Pruritis, Pelvic Pain, Prolapse Symptoms, Sexual Dysfunction, Vaginal Discharge, Vaginal Dryness , Vaginal Odor, Vaginal Pruritis, Other - Menstruation Menstruation: absent: As Per HPI, Amenorrhea, Amenorrhea/ Control, Currently Menstual, Cycle <21 Days, Cycle >35 Days, Cycle Variable, Menses 1-7 Days, Menses >/= 8 Days, Menses Variable, Cycle > 4 Weeks Between, No Menses for 6 Months, Heavy Menses, Light Menses, Normal Menses, Spotting Between Cycles , S/P Hysterectomy, Menopausal, Post Menopausal, Premenarche, Abnormal Vaginal Bleeding, Dysmenorrhea, Other - Musculoskeletal Musculoskeletal: As Per HPI - Integumentary Integumentary: As Per HPI, Skin Pain, Wounds - Neurological Neurological: absent: As Per HPI, Abnormal Gait, Abnormal Hearing, Abnormal Movements, Abnormal Speech, Behavioral Changes, Burning Sensations, Confusion, Convulsions, Disequilibrium, Dizziness, Numbness, Focal Weakness, Frequent Falls , Headaches, Lack of Coordination, Loss of Vision, Memory Loss, Paresthesias, Radicular Pain, Restless Legs, Sensory Deficit, Syncope, Tingling, Tremor, Vertigo, Weakness, Other Visual Disturbances, Other - Psychiatric Psychiatric: absent: As Per HPI, Abnormal Sleep Pattern, Anhedonia, Anxiety, Auditory Hallucinations, Behavioral Changes, Change in Appetite, Change in Libido, Confusion, Depression, Difficulty Concentrating, Hallucinations, Homicidal Ideation, Hopelessness, Irritability, Memory Loss, Mood Swings, Panic Attacks, Paranoia, Suicidal Ideation, Visual Hallucinations, Tactile Hallucinations, Other - Endocrine Endocrine: absent: As Per HPI, Change in Body Appearance, Change in Libido, Cold Intolorance, Deepening of Voice, Excessive Sweating, Fatigue, Flushing, Heat Intolorance, Increase in Ring/Shoe/Hat Size, Palpitations, Polydipsia, Polyphagia, Polyuria, Other - Hematologic/Lymphatic Hematologic: absent: As Per HPI, Easy Bleeding, Easy Bruising, Lymphadenopathy, Other Past Patient History - Infectious Disease Hx of Infectious Diseases: None - Past Medical History & Family History Past Medical History?: Yes - Past Social History Smoking Status: Never Smoked - CARDIAC Hx Hypertension: Yes - PULMONARY Hx Asthma: No - NEUROLOGICAL Hx Neurological Disorder: Yes Other/Comment: TINGLING LEFT FOOT - HEENT Hx HEENT Problems: No - RENAL Hx Chronic Kidney Disease: No - ENDOCRINE/METABOLIC Hx Endocrine Disorders: Yes Hx Diabetes Mellitus Type 1: Yes Hx Diabetes Mellitus Type 2: Yes - HEMATOLOGICAL/ONCOLOGICAL Hx Blood Disorders: No Hx Cancer: Yes (UTERINE) - INTEGUMENTARY Hx Dermatological Problems: No - MUSCULOSKELETAL/RHEUMATOLOGICAL Hx Arthritis: Yes - GASTROINTESTINAL Hx Gastritis: Yes - GENITOURINARY/GYNECOLOGICAL Hx Genitourinary Disorders: No Hx Uterine Cancer: Yes - PSYCHIATRIC Hx Psychophysiologic Disorder: No Hx Emotional Abuse: No Hx Physical Abuse: No Hx Substance Use: No - SURGICAL HISTORY Hx Cholecystectomy: Yes Hx Tonsillectomy: Yes (AGE 2) - ANESTHESIA Hx Anesthesia: Yes Hx Anesthesia Reactions: No Hx Malignant Hyperthermia: No Meds Allergies/Adverse Reactions: Allergies Allergy/AdvReac Type Severity Reaction Status Date / Time No Known Allergies Allergy Verified 11/20/17 08:02 - Medications Medications: Current Medications Acetaminophen (Tylenol 325mg Tab) 650 mg PO Q4 PRN PRN Reason: Pain, Mild (1-3) Docusate Sodium (Colace) 100 mg PO DAILY PRN PRN Reason: Constipation Enoxaparin Sodium (Lovenox) 110 mg SC DAILY [facility] PRN Reason: Protocol Hydrochlorothiazide (Microzide) 12.5 mg PO DAILY [facility] Hydromorphone HCl (Dilaudid) 1 mg IVP Q6 PRN PRN Reason: Pain, severe (8-10) Last Admin: 02/02/18 11:06 Dose: 1 mg Piperacillin Sod/Tazobactam (Sod 3.375 gm/ Sodium Chloride) 100 mls @ 100 mls/ hr IVPB Q8 [facility] PRN Reason: Protocol Last Admin: 02/02/18 09:43 Dose: 100 mls/hr Vancomycin HCl 1 gm/ Sodium (Chloride) 250 mls @ 166.667 mls/hr IVPB DAILY [facility] PRN Reason: Protocol Last Admin: 02/02/18 09:44 Dose: 166.667 mls/hr Insulin Human Regular (Humulin R) 0 units SC ACCU-CHECK [facility] PRN Reason: Protocol Last Admin: 02/02/18 06:27 Dose: Not Given Lidocaine (Lidoderm) 1 ea TD DAILY [facility] Multivitamins/Minerals (Therapeutic-M Tab) 1 tab PO HS [facility] Last Admin: 02/01/18 22:31 Dose: 1 tab Oxycodone/Acetaminophen (Percocet 5/325 Mg Tab) 1 tab PO Q6 PRN PRN Reason: Pain, moderate (4-7) Stop: 02/05/18 09:11 Pantoprazole Sodium (Protonix Ec Tab) 40 mg PO DAILY [facility] Last Admin: 02/02/18 11:07 Dose: 40 mg Repaglinide (Prandin) 2 mg PO TID [facility] Last Admin: 02/02/18 09:42 Dose: Not Given Valsartan (Diovan) 160 mg PO DAILY [facility] Last Admin: 02/02/18 09:41 Dose: Not Given Physical Exam - Constitutional Appears: Non-toxic, Chronically Ill - Head Exam Head Exam: NORMOCEPHALIC - Eye Exam Eye Exam: PERRL. absent: Scleral icterus - ENT Exam ENT Exam: Mucous Membranes Dry, Normal External Ear Exam - Neck Exam Neck exam: Negative for: Lymphadenopathy - Respiratory Exam Respiratory Exam: Decreased Breath Sounds, Clear to Auscultation Bilateral - Cardiovascular Exam Cardiovascular Exam: REGULAR RHYTHM, +S1, +S2 - GI/Abdominal Exam GI & Abdominal Exam: Diminished Bowel Sounds, Soft. absent: Tenderness - Rectal Exam Rectal Exam: Deferred - Exam Exam: NORMAL INSPECTION - Extremities Exam Extremities exam: Positive for: calf tenderness, pedal edema, tenderness Additional comments: LLE focused physical exam: VASC: DP pulse palpable 2/4. PT pulse unable to be obtained. CFT <3 seconds to all digits. Temperature gradient warm to warm, increase in warmth medial ankle periwound. Nonpitting edema noted to ankle and foot. NEURO: Gross sensation intact, hyperesthesia medial ankle DERM: Surgical wound to medial ankle appears dehisced with defect measuring approximately 5 x 1.5 cm; wound is noted to have a 90% fibrotic and 10% necrotic base and erythema/deep rubor periwound; sutures remain within wound bed ; malodor present; serosanguinous drainage noted. ORTHO: Severe pain on palpation medial ankle. Pain upon calf squeeze. Absent palpable cord. - Back Exam Back exam: absent: CVA tenderness (L), CVA tenderness (R), paraspinal tenderness - Neurological Exam Neurological exam: Alert, CN II-XII Intact, Oriented x3, Reflexes Normal - Psychiatric Exam Psychiatric exam: Normal Mood - Skin Skin Exam: Dry, Intact Results - Vital Signs Recent Vital Signs: Last Vital Signs Temp 99.2 F 02/02/18 07:48 Pulse 100 H 02/02/18 07:48 Resp 18 02/02/18 07:48 BP 96/63 L 02/02/18 07:48 Pulse Ox 95 02/02/18 07:48 - Labs Result Diagrams: 02/02/18 04:57 02/02/18 04:57 Labs: Laboratory Results - last 24 hr 02/01/18 02/01/18 02/01/18 15:17 15:17 15:17 WBC 7.7 RBC 4.76 Hgb 14.2 Hct 40.9 MCV 85.8 MCH 29.8 MCHC 34.7 RDW 14.2 Plt Count 305 MPV 8.0 Neut % (Auto) 72.4 Lymph % (Auto) 20.5 [place] % (Auto) 5.6 Eos % (Auto) 1.1 Baso % (Auto) 0.4 Neut # (Auto) 5.6 Lymph # (Auto) 1.6 [place] # (Auto) 0.4 Eos # (Auto) 0.1 Baso # (Auto) 0.0 ESR PT INR APTT pO2 VBG pH VBG pCO2 VBG HCO3 VBG Total CO2 VBG O2 Sat (Calc) VBG Base Excess VBG Potassium Glucose Lactate FiO2 Sodium 139 Potassium 3.9 Chloride 98 Carbon Dioxide 27 Anion Gap 18 BUN 20 H Creatinine 0.8 Est GFR ( Amer) > 60 Est GFR (Non-Af Amer) > 60 POC Glucose (mg/dL) Random Glucose 108 H Hemoglobin A1c 6.0 Calcium 9.9 Total Bilirubin 0.5 AST 30 ALT 37 Alkaline Phosphatase 145 H C-React Prot High Sens Total Protein 8.0 Albumin 4.2 Globulin 3.9 Albumin/Globulin Ratio 1.1 Triglycerides Cholesterol LDL Cholesterol Direct HDL Cholesterol Vitamin B12 Total T3 TSH 3rd Generation Venous Blood Potassium Urine Color Urine Clarity Urine pH Ur Specific [place] Urine Protein Urine Glucose (UA) Urine Ketones Urine Blood Urine Nitrate Urine Bilirubin Urine Urobilinogen Ur Leukocyte Esterase Urine RBC (Auto) Urine Microscopic WBC Ur Squamous Epith Cells Urine Bacteria Blood Type Antibody Screen BBK History Checked 02/01/18 02/01/18 02/01/18 16:04 16:24 16:39 WBC RBC Hgb Hct MCV MCH MCHC RDW Plt Count MPV Neut % (Auto) Lymph % (Auto) [place] % (Auto) Eos % (Auto) Baso % (Auto) Neut # (Auto) Lymph # (Auto) [place] # (Auto) Eos # (Auto) Baso # (Auto) ESR PT INR APTT pO2 19 L VBG pH 7.42 VBG pCO2 43 VBG HCO3 25.4 VBG Total CO2 29.2 H VBG O2 Sat (Calc) 38.1 L VBG Base Excess 2.9 H VBG Potassium 3.8 Glucose 107 H Lactate 1.9 FiO2 21.0 Sodium 133.0 Potassium Chloride 101.0 Carbon Dioxide Anion Gap BUN Creatinine Est GFR ( Amer) Est GFR (Non-Af Amer) POC Glucose (mg/dL) 97 Random Glucose Hemoglobin A1c Calcium Total Bilirubin AST ALT Alkaline Phosphatase C-React Prot High Sens > 15.00 H Total Protein Albumin Globulin Albumin/Globulin Ratio Triglycerides Cholesterol LDL Cholesterol Direct HDL Cholesterol Vitamin B12 Total T3 TSH 3rd Generation Venous Blood Potassium 3.8 Urine Color Urine Clarity Urine pH Ur Specific [place] Urine Protein Urine Glucose (UA) Urine Ketones Urine Blood Urine Nitrate Urine Bilirubin Urine Urobilinogen Ur Leukocyte Esterase Urine RBC (Auto) Urine Microscopic WBC Ur Squamous Epith Cells Urine Bacteria Blood Type Antibody Screen BBK History Checked 02/01/18 02/01/18 02/01/18 16:39 17:32 17:32 WBC RBC Hgb Hct MCV MCH MCHC RDW Plt Count MPV Neut % (Auto) Lymph % (Auto) [place] % (Auto) Eos % (Auto) Baso % (Auto) Neut # (Auto) Lymph # (Auto) [place] # (Auto) Eos # (Auto) Baso # (Auto) ESR 86 H PT 11.0 INR 1.0 APTT 32.3 pO2 VBG pH VBG pCO2 VBG HCO3 VBG Total CO2 VBG O2 Sat (Calc) VBG Base Excess VBG Potassium Glucose Lactate FiO2 Sodium Potassium Chloride Carbon Dioxide Anion Gap BUN Creatinine Est GFR ( Amer) Est GFR (Non-Af Amer) POC Glucose (mg/dL) Random Glucose Hemoglobin A1c Calcium Total Bilirubin AST ALT Alkaline Phosphatase C-React Prot High Sens Total Protein Albumin Globulin Albumin/Globulin Ratio Triglycerides Cholesterol LDL Cholesterol Direct HDL Cholesterol Vitamin B12 Total T3 TSH 3rd Generation Venous Blood Potassium Urine Color Urine Clarity Urine pH Ur Specific [place] Urine Protein Urine Glucose (UA) Urine Ketones Urine Blood Urine Nitrate Urine Bilirubin Urine Urobilinogen Ur Leukocyte Esterase Urine RBC (Auto) Urine Microscopic WBC Ur Squamous Epith Cells Urine Bacteria Blood Type O POSITIVE Antibody Screen Negative BBK History Checked Patient has bt 02/01/18 02/01/18 02/02/18 17:32 21:35 04:57 WBC 7.6 RBC 4.08 Hgb 11.9 L D Hct 35.2 MCV 86.3 MCH 29.1 MCHC 33.7 RDW 13.8 Plt Count 259 MPV Neut % (Auto) Lymph % (Auto) [place] % (Auto) Eos % (Auto) Baso % (Auto) Neut # (Auto) Lymph # (Auto) [place] # (Auto) Eos # (Auto) Baso # (Auto) ESR PT INR APTT pO2 VBG pH VBG pCO2 VBG HCO3 VBG Total CO2 VBG O2 Sat (Calc) VBG Base Excess VBG Potassium Glucose Lactate FiO2 Sodium Potassium Chloride Carbon Dioxide Anion Gap BUN Creatinine Est GFR ( Amer) Est GFR (Non-Af Amer) POC Glucose (mg/dL) 109 Random Glucose Hemoglobin A1c Calcium Total Bilirubin AST ALT Alkaline Phosphatase C-React Prot High Sens Total Protein Albumin Globulin Albumin/Globulin Ratio Triglycerides Cholesterol LDL Cholesterol Direct HDL Cholesterol Vitamin B12 Total T3 TSH 3rd Generation Venous Blood Potassium Urine Color Yellow Urine Clarity Cloudy Urine pH 6.0 Ur Specific [place] 1.015 Urine Protein Negative Urine Glucose (UA) Neg Urine Ketones Negative Urine Blood Negative Urine Nitrate Negative Urine Bilirubin Negative Urine Urobilinogen 0.2-1.0 Ur Leukocyte Esterase Neg Urine RBC (Auto) 1 Urine Microscopic WBC 2 Ur Squamous Epith Cells 12 H Urine Bacteria Occ H Blood Type Antibody Screen BBK History Checked 02/02/18 02/02/18 04:57 05:30 WBC RBC Hgb Hct MCV MCH MCHC RDW Plt Count MPV Neut % (Auto) Lymph % (Auto) [place] % (Auto) Eos % (Auto) Baso % (Auto) Neut # (Auto) Lymph # (Auto) [place] # (Auto) Eos # (Auto) Baso # (Auto) ESR PT INR APTT pO2 VBG pH VBG pCO2 VBG HCO3 VBG Total CO2 VBG O2 Sat (Calc) VBG Base Excess VBG Potassium Glucose Lactate FiO2 Sodium 136 Potassium 4.2 Chloride 101 Carbon Dioxide 23 Anion Gap 16 BUN 17 Creatinine 0.8 Est GFR ( Amer) > 60 Est GFR (Non-Af Amer) > 60 POC Glucose (mg/dL) 115 H Random Glucose 118 H Hemoglobin A1c Calcium 9.0 Total Bilirubin 0.8 AST 25 ALT 41 Alkaline Phosphatase 136 H C-React Prot High Sens Total Protein 6.9 Albumin 3.5 Globulin 3.4 Albumin/Globulin Ratio 1.0 Triglycerides 130 Cholesterol 187 LDL Cholesterol Direct 124 HDL Cholesterol 31 Vitamin B12 766 Total T3 1.03 L TSH 3rd Generation 5.16 H Venous Blood Potassium Urine Color Urine Clarity Urine pH Ur Specific [place] Urine Protein Urine Glucose (UA) Urine Ketones Urine Blood Urine Nitrate Urine Bilirubin Urine Urobilinogen Ur Leukocyte Esterase Urine RBC (Auto) Urine Microscopic WBC Ur Squamous Epith Cells Urine Bacteria Blood Type Antibody Screen BBK History Checked Assessment & Plan (1) Deep vein thrombosis Status: Acute (2) Surgical wound infection Status: Acute (3) Diabetes mellitus type 2, diet-controlled Status: Acute (4) Plantar fasciitis Status: Acute - Assessment and Plan (Free Text) Assessment: acute DVT cellulitis left foot over medial malleolus- r/o OM recc : IV RX check cultures, possible debridement and skin graft consider Vascular consult and arterial dooplers cont rx for DVT
[2018-02-02] MEDS ORDERED: CADEXOMER IODINE TOP SCH (13:30)
[2018-02-02] MEDS: Enoxaparin 120 mg Syringe SC SCH (18:01)
[2018-02-02] MEDS: Multivitamin With Minerals Tab PO SCH (22:16)
[2018-02-02] MEDS ORDERED: DiphenhydrAMINE 50 mg/ml Inj IVP ONE (23:24)
[2018-02-03] MEDS: Piperacillin/Tazobact 3.375 GM in Sodium Chloride 0.9% 100 ML IVPB SCH ×3 (01:31→17:29)
[2018-02-03 05:37] LABS: HEMOGLOBIN 12.2 g/dL (12.0-16.0); MEAN CELL VOLUME 85.8 fl (81.0-99.0); MEAN CORPUSCULAR HEMOGLOBIN 29.8 pg (27.0-31.0); MEAN CORPUSCULAR HGB CONC 34.7 g/dL (33.0-37.0); RBC 4.08 Mil/uL (3.80-5.20); RED CELL DISTRIBUTION WIDTH 13.5 % (11.5-14.5)
[2018-02-03 05:39] LABS: ALB/GLOB RATIO 1.1 (1.0-2.1); ALBUMIN 3.6 g/dL (3.5-5.0); ALT/SGPT 44 U/L (9-52); AST/SGOT 26 U/L (14-36); BLOOD UREA NITROGEN 15 mg/dl (7-17); CALCIUM 9.2 mg/dL (8.4-10.2); GFR AFRICAN-AMERICAN > 60; GFR NON-AFRICAN AMERICAN > 60
[2018-02-03] MEDS: Levothyroxine 25 MCG TAB PO SCH (06:35)
[2018-02-03] MEDS: Insulin Regular 100 units/ml SC SCH ×4 (06:37→22:45)
[2018-02-03] MEDS: Pantoprazole 40 mg EC Tab PO SCH (09:03)
[2018-02-03] MEDS: Lidocaine 5% Patch TD SCH (09:07)
--- NOTE | 2018-02-03 09:12 | PN ---
DATE: 02/03/2018 SUBJECTIVE: The patient is seen and examined. Interim events noted. Consults noted and appreciated. Podiatric and Infectious Disease followup and interventions noted and appreciated. The patient remains in Progressive Care Unit on telemetry monitoring. The patient was not able to speak. Pain is adequately controlled, only happens when the patient moves the leg or the patient goes to the bathroom. No chest pain. No shortness of breath. No fever. PHYSICAL EXAMINATION: GENERAL: The patient is in no acute distress. VITAL SIGNS: Stable. HEART: S1 and S2, normal and regular. LUNGS: Good bilateral air exchange. ABDOMEN: Soft and nontender. EXTREMITIES: No edema. No calf swelling. No tenderness. No acute ischemia. Cellulitis is slowly improving, all studies essentially same. DIAGNOSTIC DATA: Available diagnostic data reviewed. Telemetry monitoring does not reveal significant arrhythmias. ASSESSMENT AND PLAN: Overall, the patient's general medical condition is stable. The patient for MRI today. Plan as ordered. Case and plan discussed with the patient. Steve Shine MD
[2018-02-03] MEDS ORDERED: Gadodiamide 287 MG/ML VIAL (15ML) IV ONE (09:59)
--- NOTE | 2018-02-03 10:09 | CP.PCM.PN ---
Subjective - Date & Time of Evaluation Date of Evaluation: 02/03/18 Time of Evaluation: 10:09 - Subjective Subjective: Podiatry Progress Note - Dr. Estevez 48 year old female patient PMHx HTN, DM, hypercholesterolemia seen and evaluated at bedside for infected surgical wound left ankle. Friends present at bedside. No acute events overnight; patient states she is now able to sleep through the night. Patient states pain in her left ankle has decreased, and she is now able to move her left foot freely with minimal pain. Offers no other complaints. Dressings clean/dry/intact. Denies N/V/F/D/C/SOB. Objective - Vital Signs/Intake and Output Vital Signs (last 24 hours): Temp Pulse Resp BP Pulse Ox 98.4 F 99 H 18 103/70 96 02/03/18 07:59 02/03/18 07:59 02/03/18 07:59 02/03/18 07:59 02/03/18 07:59 - Medications Medications: Current Medications Acetaminophen (Tylenol 325mg Tab) 650 mg PO Q4 PRN PRN Reason: Pain, Mild (1-3) Cadexomer Iodine (Iodosorb 0.9%) 1 applic TOP QOTHERDAY [facility] Docusate Sodium (Colace) 100 mg PO DAILY PRN PRN Reason: Constipation Last Admin: 02/03/18 09:03 Dose: 100 mg Enoxaparin Sodium (Lovenox) 110 mg SC DAILY@1700 [facility] PRN Reason: Protocol Last Admin: 02/02/18 18:01 Dose: 110 mg Hydrochlorothiazide (Microzide) 12.5 mg PO DAILY [facility] Last Admin: 02/03/18 09:04 Dose: 12.5 mg Hydromorphone HCl (Dilaudid) 1 mg IVP Q6 PRN PRN Reason: Pain, severe (8-10) Last Admin: 02/03/18 06:34 Dose: 1 mg Piperacillin Sod/Tazobactam (Sod 3.375 gm/ Sodium Chloride) 100 mls @ 100 mls/ hr IVPB Q8 [facility] PRN Reason: Protocol Last Admin: 02/03/18 09:05 Dose: 100 mls/hr Vancomycin HCl 1 gm/ Sodium (Chloride) 250 mls @ 250 mls/hr IVPB Q12H [facility] PRN Reason: Protocol Last Admin: 02/02/18 23:44 Dose: 250 mls/hr Insulin Human Regular (Humulin R) 0 units SC ACCU-CHECK [facility] PRN Reason: Protocol Last Admin: 02/03/18 06:37 Dose: Not Given Levothyroxine Sodium (Synthroid) 25 mcg PO DAILY@0630 [facility] Last Admin: 02/03/18 06:35 Dose: 25 mcg Lidocaine (Lidoderm) 1 ea TD DAILY [facility] Last Admin: 02/03/18 09:07 Dose: Not Given Lidocaine HCl (Xylocaine 2%) 1 applic TOP DAILY [facility] Multivitamins/Minerals (Therapeutic-M Tab) 1 tab PO HS [facility] Last Admin: 02/02/18 22:16 Dose: 1 tab Oxycodone/Acetaminophen (Percocet 5/325 Mg Tab) 1 tab PO Q6 PRN PRN Reason: Pain, moderate (4-7) Stop: 02/05/18 09:11 Pantoprazole Sodium (Protonix Ec Tab) 40 mg PO DAILY [facility] Last Admin: 02/03/18 09:03 Dose: 40 mg Repaglinide (Prandin) 2 mg PO TID [facility] Last Admin: 02/03/18 09:03 Dose: 2 mg Valsartan (Diovan) 160 mg PO DAILY [facility] Last Admin: 02/03/18 09:04 Dose: 160 mg Zolpidem Tartrate (Ambien) 5 mg PO HS PRN PRN Reason: Insomnia - Labs Labs: 02/03/18 04:25 02/03/18 04:25 PT 11.0 Seconds (9.8-13.1) 02/01/18 17:32 INR 1.0 (0.9-1.2) 02/01/18 17:32 APTT 32.3 Seconds (25.6-37.1) 02/01/18 17:32 - Constitutional Appears: Well, Non-toxic, No Acute Distress - Extremities Exam Additional comments: LLE focused physical exam: VASC: DP pulse palpable 2/4. PT pulse unable to be obtained due to location of wound. CFT <3 seconds to all digits. Temperature gradient warm to warm, increase in warmth medial ankle periwound. Nonpitting edema noted to ankle and foot. NEURO: Gross sensation intact. Hyperesthesia medial ankle, improving. DERM: Surgical wound to medial ankle appears dehisced with defect measuring approximately 5 x 1.5 cm; wound is noted to have a 90% fibrotic and 10% necrotic base and deep rubor periwound, extending 2cm circumfirentially; sutures remain within wound bed; malodor present; serosanguinous drainage noted. ORTHO: Pain on palpation medial ankle. Absent palpable cord. - Neurological Exam Neurological Exam: Alert, Awake, Oriented x3 - Psychiatric Exam Psychiatric exam: Normal Affect, Normal Mood Assessment and Plan - Assessment and Plan (Free Text) Assessment: 48 year old female with 1) infected surgical wound left ankle, improving 2) LLE DVT within superficial femoral and popliteal veins Plan: Patient seen and evaluated with attending, Dr. Estevez Afebrile, WBC 7.0, repeat ESR 94, CRP >15.00 f/u repeat CRP, CK, CK- MB, tropononin i LLE venous duplex (02/01/18): DVT within superficial femoral and popliteal veins Chest CT ordered r/o PE (02/01/18): Limited study due to suboptimal opacification and large body habitus demonstrating no acute central pulmonary embolus; no acute consolidation, mild atelectasis both posterior [facility]; DVT management per primary team LLE arterial duplex ordered LLE MRI obtained, f/u report Left ankle WCx - staphylococcus aureus ID consulted - Vancomycin 1g IV, Zosyn 3.375g IV Continue local wound care - Iodosorb QOD, lidocaine jelly may be applied per wound Pain management - Lidoderm TD, Percocet 1 tab PO breakthrough, Dilaudid 1mg IV Podiatry will continue to follow while in house
--- NOTE | 2018-02-03 11:40 | CP.PCM.PN ---
Subjective - Date & Time of Evaluation Date of Evaluation: 02/03/18 Time of Evaluation: 08:00 - Subjective Subjective: Wound growing MSSA wound care in progress await MRI Objective - Vital Signs/Intake and Output Vital Signs (last 24 hours): Temp Pulse Resp BP Pulse Ox 98.4 F 99 H 18 103/70 96 02/03/18 07:59 02/03/18 07:59 02/03/18 07:59 02/03/18 07:59 02/03/18 07:59 - Medications Medications: Current Medications Acetaminophen (Tylenol 325mg Tab) 650 mg PO Q4 PRN PRN Reason: Pain, Mild (1-3) Cadexomer Iodine (Iodosorb 0.9%) 1 applic TOP QOTHERDAY [facility] Docusate Sodium (Colace) 100 mg PO DAILY PRN PRN Reason: Constipation Last Admin: 02/03/18 09:03 Dose: 100 mg Enoxaparin Sodium (Lovenox) 110 mg SC DAILY@1700 [facility] PRN Reason: Protocol Last Admin: 02/02/18 18:01 Dose: 110 mg Hydrochlorothiazide (Microzide) 12.5 mg PO DAILY [facility] Last Admin: 02/03/18 09:04 Dose: 12.5 mg Hydromorphone HCl (Dilaudid) 1 mg IVP Q6 PRN PRN Reason: Pain, severe (8-10) Last Admin: 02/03/18 06:34 Dose: 1 mg Piperacillin Sod/Tazobactam (Sod 3.375 gm/ Sodium Chloride) 100 mls @ 100 mls/ hr IVPB Q8 [facility] PRN Reason: Protocol Last Admin: 02/03/18 09:05 Dose: 100 mls/hr Vancomycin HCl 1 gm/ Sodium (Chloride) 250 mls @ 250 mls/hr IVPB Q12H [facility] PRN Reason: Protocol Last Admin: 02/02/18 23:44 Dose: 250 mls/hr Insulin Human Regular (Humulin R) 0 units SC ACCU-CHECK [facility] PRN Reason: Protocol Last Admin: 02/03/18 06:37 Dose: Not Given Levothyroxine Sodium (Synthroid) 25 mcg PO DAILY@0630 [facility] Last Admin: 02/03/18 06:35 Dose: 25 mcg Lidocaine (Lidoderm) 1 ea TD DAILY [facility] Last Admin: 02/03/18 09:07 Dose: Not Given Lidocaine HCl (Xylocaine 2%) 1 applic TOP DAILY [facility] Multivitamins/Minerals (Therapeutic-M Tab) 1 tab PO HS [facility] Last Admin: 02/02/18 22:16 Dose: 1 tab Ondansetron HCl (Zofran Inj) 4 mg IVP Q6 PRN PRN Reason: Nausea/Vomiting Oxycodone/Acetaminophen (Percocet 5/325 Mg Tab) 1 tab PO Q6 PRN PRN Reason: Pain, moderate (4-7) Stop: 02/05/18 09:11 Pantoprazole Sodium (Protonix Ec Tab) 40 mg PO DAILY [facility] Last Admin: 02/03/18 09:03 Dose: 40 mg Repaglinide (Prandin) 2 mg PO TID [facility] Last Admin: 02/03/18 09:03 Dose: 2 mg Valsartan (Diovan) 160 mg PO DAILY [facility] Last Admin: 02/03/18 09:04 Dose: 160 mg Zolpidem Tartrate (Ambien) 5 mg PO HS PRN PRN Reason: Insomnia - Labs Labs: 02/03/18 04:25 02/03/18 04:25 PT 11.0 Seconds (9.8-13.1) 02/01/18 17:32 INR 1.0 (0.9-1.2) 02/01/18 17:32 APTT 32.3 Seconds (25.6-37.1) 02/01/18 17:32 - Constitutional Appears: Non-toxic, Chronically Ill - Head Exam Head Exam: NORMOCEPHALIC - Eye Exam Eye Exam: PERRL - ENT Exam ENT Exam: Mucous Membranes Dry - Neck Exam Neck Exam: absent: Lymphadenopathy - Respiratory Exam Respiratory Exam: Decreased Breath Sounds, Prolonged Expiratory Phase - Cardiovascular Exam Cardiovascular Exam: REGULAR RHYTHM, +S1, +S2 - GI/Abdominal Exam GI & Abdominal Exam: Distended - Rectal Exam Rectal Exam: Deferred - Exam Exam: NORMAL INSPECTION Assessment and Plan (1) Deep vein thrombosis Status: Acute (2) Surgical wound infection Status: Acute (3) Diabetes mellitus type 2, diet-controlled Status: Acute (4) Plantar fasciitis Status: Acute
[2018-02-03] MEDS: Lidocaine 2% GEL TOP SCH (11:57)
[2018-02-03] MEDS: CADEXOMER IODINE TOP SCH (11:58)
--- NOTE | 2018-02-03 12:17 | CARD ---
APPROVED REPORT EKG Measurement Heart [id number] <Conclusion> Normal sinus rhythm Incomplete right bundle branch block Borderline ECG
[2018-02-03 16:24] LABS: CK-MB 0.79 ng/mL (0.0-3.38)
[2018-02-03] MEDS: Enoxaparin 120 mg Syringe SC SCH (17:27)
[2018-02-03] MEDS: Multivitamin With Minerals Tab PO SCH (22:43)
[2018-02-04] MEDS: Piperacillin/Tazobact 3.375 GM in Sodium Chloride 0.9% 100 ML IVPB SCH ×3 (01:07→17:05)
[2018-02-04] MEDS: Levothyroxine 25 MCG TAB PO SCH (06:49)
--- NOTE | 2018-02-04 06:54 | CP.PCM.PN ---
<Randal Soto - Last Filed: 02/04/18 11:47> Subjective - Date & Time of Evaluation Date of Evaluation: 02/04/18 Time of Evaluation: 07:00 - Subjective Subjective: Discussed with Dr Fátima Reed. No event overnight. States she feels "much better". Pain markedly improved. Express concerns about MRI results, explained to patient that results still pending. Tolerating PO. No changes in urination or stools. Admits L/calf pain. Denies palpitations, CP or SOB Objective - Vital Signs/Intake and Output Vital Signs (last 24 hours): Temp Pulse Resp BP Pulse Ox 98.8 F 100 H 18 107/72 93 L 02/04/18 04:58 02/04/18 04:58 02/04/18 04:58 02/04/18 04:58 02/04/18 04:58 - Medications Medications: Current Medications Acetaminophen (Tylenol 325mg Tab) 650 mg PO Q4 PRN PRN Reason: Pain, Mild (1-3) Cadexomer Iodine (Iodosorb 0.9%) 1 applic TOP QOTHERDAY [facility] Last Admin: 02/03/18 11:58 Dose: 1 applic Docusate Sodium (Colace) 100 mg PO DAILY PRN PRN Reason: Constipation Last Admin: 02/03/18 09:03 Dose: 100 mg Enoxaparin Sodium (Lovenox) 110 mg SC DAILY@1700 [facility] PRN Reason: Protocol Last Admin: 02/03/18 17:27 Dose: 110 mg Hydrochlorothiazide (Microzide) 12.5 mg PO DAILY [facility] Last Admin: 02/03/18 09:04 Dose: 12.5 mg Hydromorphone HCl (Dilaudid) 1 mg IVP Q6 PRN PRN Reason: Pain, severe (8-10) Last Admin: 02/04/18 04:04 Dose: 1 mg Piperacillin Sod/Tazobactam (Sod 3.375 gm/ Sodium Chloride) 100 mls @ 100 mls/ hr IVPB Q8 [facility] PRN Reason: Protocol Last Admin: 02/04/18 01:07 Dose: 100 mls/hr Vancomycin HCl 1 gm/ Sodium (Chloride) 250 mls @ 250 mls/hr IVPB Q12H [facility] PRN Reason: Protocol Last Admin: 02/04/18 00:26 Dose: 250 mls/hr Insulin Human Regular (Humulin R) 0 units SC ACCU-CHECK [facility] PRN Reason: Protocol Last Admin: 02/03/18 22:45 Dose: Not Given Levothyroxine Sodium (Synthroid) 25 mcg PO DAILY@0630 [facility] Last Admin: 02/04/18 06:49 Dose: 25 mcg Lidocaine (Lidoderm) 1 ea TD DAILY [facility] Last Admin: 02/03/18 09:07 Dose: Not Given Lidocaine HCl (Xylocaine 2%) 1 applic TOP DAILY [facility] Last Admin: 02/03/18 11:57 Dose: 1 applic Multivitamins/Minerals (Therapeutic-M Tab) 1 tab PO HS [facility] Last Admin: 02/03/18 22:43 Dose: 1 tab Ondansetron HCl (Zofran Inj) 4 mg IVP Q6 PRN PRN Reason: Nausea/Vomiting Last Admin: 02/03/18 11:57 Dose: 4 mg Oxycodone/Acetaminophen (Percocet 5/325 Mg Tab) 1 tab PO Q6 PRN PRN Reason: Pain, moderate (4-7) Stop: 02/05/18 09:11 Pantoprazole Sodium (Protonix Ec Tab) 40 mg PO DAILY [facility] Last Admin: 02/03/18 09:03 Dose: 40 mg Repaglinide (Prandin) 2 mg PO TID [facility] Last Admin: 02/03/18 17:28 Dose: Not Given Valsartan (Diovan) 160 mg PO DAILY [facility] Last Admin: 02/03/18 09:04 Dose: 160 mg Zolpidem Tartrate (Ambien) 5 mg PO HS PRN PRN Reason: Insomnia Last Admin: 02/04/18 00:24 Dose: 5 mg - Labs Labs: 02/03/18 04:25 02/03/18 04:25 PT 11.0 Seconds (9.8-13.1) 02/01/18 17:32 INR 1.0 (0.9-1.2) 02/01/18 17:32 APTT 32.3 Seconds (25.6-37.1) 02/01/18 17:32 - Constitutional Appears: Non-toxic, No Acute Distress - Eye Exam Eye Exam: EOMI - ENT Exam ENT Exam: Mucous Membranes Moist - Respiratory Exam Respiratory Exam: Clear to Ausculation Bilateral, NORMAL BREATHING PATTERN - Cardiovascular Exam Cardiovascular Exam: REGULAR RHYTHM. absent: Gallop - GI/Abdominal Exam GI & Abdominal Exam: Soft, Normal Bowel Sounds. absent: Tenderness, Rebound - Extremities Exam Extremities Exam: Calf Tenderness (L/mild). absent: Normal Inspection Additional comments: L/foot covered with dressing which is intact. tender to touch. No weakness - Neurological Exam Neurological Exam: Alert, Awake, Oriented x3 - Psychiatric Exam Psychiatric exam: Normal Affect, Normal Mood - Skin Skin Exam: Warm Assessment and Plan - Assessment and Plan (Free Text) Assessment: L/foot cellulitis with ulceration Improved R/O OM. Pending MRI C/W Broad spec IV ABx ID consult appreciated Podiatry consult appreciated L/leg DVT On Lovenox SQ therapeutic dose Stable <Shine,Steve K - Last Filed: 02/08/18 10:55> Objective - Vital Signs/Intake and Output Vital Signs (last 24 hours): Temp Pulse Resp BP Pulse Ox 99 F 92 H 18 109/73 97 02/07/18 23:56 02/07/18 23:56 02/07/18 23:56 02/07/18 23:56 02/07/18 23:56 - Labs Labs: 02/07/18 06:15 02/07/18 06:15 PT 11.0 Seconds (9.8-13.1) 02/01/18 17:32 INR 1.0 (0.9-1.2) 02/01/18 17:32 APTT 32.3 Seconds (25.6-37.1) 02/01/18 17:32 Assessment and Plan - Assessment and Plan (Free Text) Assessment: Patient was personally seen and examined by me in rounds with residents. Available labs and diagnostic data reviewed. Case, patient's conditions and management plan discussed with residents in rounds. Agree with resident's progress note. Plan: As ordered.
[2018-02-04] MEDS: Insulin Regular 100 units/ml SC SCH ×4 (08:26→22:41)
[2018-02-04] MEDS: Lidocaine 5% Patch TD SCH (08:29)
[2018-02-04] MEDS: Pantoprazole 40 mg EC Tab PO SCH (08:30)
--- NOTE | 2018-02-04 11:47 | CP.PCM.PN ---
Subjective - Date & Time of Evaluation Date of Evaluation: 02/04/18 Time of Evaluation: 07:00 - Subjective Subjective: iv rx / wound care in progress mri pending + MSSA will d/c vanco Objective - Vital Signs/Intake and Output Vital Signs (last 24 hours): Temp Pulse Resp BP Pulse Ox 98.2 F 93 H 18 103/68 91 L 02/04/18 08:00 02/04/18 08:00 02/04/18 08:00 02/04/18 08:00 02/04/18 08:00 - Medications Medications: Current Medications Acetaminophen (Tylenol 325mg Tab) 650 mg PO Q4 PRN PRN Reason: Pain, Mild (1-3) Cadexomer Iodine (Iodosorb 0.9%) 1 applic TOP QOTHERDAY [facility] Last Admin: 02/03/18 11:58 Dose: 1 applic Docusate Sodium (Colace) 100 mg PO DAILY PRN PRN Reason: Constipation Last Admin: 02/03/18 09:03 Dose: 100 mg Enoxaparin Sodium (Lovenox) 110 mg SC DAILY@1700 [facility] PRN Reason: Protocol Last Admin: 02/03/18 17:27 Dose: 110 mg Hydrochlorothiazide (Microzide) 12.5 mg PO DAILY [facility] Last Admin: 02/04/18 08:30 Dose: 12.5 mg Hydromorphone HCl (Dilaudid) 1 mg IVP Q6 PRN PRN Reason: Pain, severe (8-10) Last Admin: 02/04/18 11:32 Dose: 1 mg Piperacillin Sod/Tazobactam (Sod 3.375 gm/ Sodium Chloride) 100 mls @ 100 mls/ hr IVPB Q8 [facility] PRN Reason: Protocol Last Admin: 02/04/18 08:27 Dose: 100 mls/hr Vancomycin HCl 1 gm/ Sodium (Chloride) 250 mls @ 250 mls/hr IVPB Q12H [facility] PRN Reason: Protocol Last Admin: 02/04/18 00:26 Dose: 250 mls/hr Insulin Human Regular (Humulin R) 0 units SC ACCU-CHECK [facility] PRN Reason: Protocol Last Admin: 02/04/18 08:26 Dose: Not Given Levothyroxine Sodium (Synthroid) 25 mcg PO DAILY@0630 [facility] Last Admin: 02/04/18 06:49 Dose: 25 mcg Lidocaine (Lidoderm) 1 ea TD DAILY [facility] Last Admin: 02/04/18 08:29 Dose: Not Given Lidocaine HCl (Xylocaine 2%) 1 applic TOP DAILY [facility] Last Admin: 02/03/18 11:57 Dose: 1 applic Multivitamins/Minerals (Therapeutic-M Tab) 1 tab PO HS [facility] Last Admin: 02/03/18 22:43 Dose: 1 tab Ondansetron HCl (Zofran Inj) 4 mg IVP Q6 PRN PRN Reason: Nausea/Vomiting Last Admin: 02/03/18 11:57 Dose: 4 mg Oxycodone/Acetaminophen (Percocet 5/325 Mg Tab) 1 tab PO Q6 PRN PRN Reason: Pain, moderate (4-7) Stop: 02/05/18 09:11 Pantoprazole Sodium (Protonix Ec Tab) 40 mg PO DAILY [facility] Last Admin: 02/04/18 08:30 Dose: 40 mg Repaglinide (Prandin) 2 mg PO TID [facility] Last Admin: 02/04/18 08:30 Dose: 2 mg Valsartan (Diovan) 160 mg PO DAILY [facility] Last Admin: 02/04/18 08:29 Dose: 160 mg Zolpidem Tartrate (Ambien) 5 mg PO HS PRN PRN Reason: Insomnia Last Admin: 02/04/18 00:24 Dose: 5 mg - Labs Labs: 02/03/18 04:25 02/03/18 04:25 PT 11.0 Seconds (9.8-13.1) 02/01/18 17:32 INR 1.0 (0.9-1.2) 02/01/18 17:32 APTT 32.3 Seconds (25.6-37.1) 02/01/18 17:32 - Constitutional Appears: Non-toxic, Chronically Ill - Head Exam Head Exam: NORMOCEPHALIC - Eye Exam Eye Exam: PERRL - ENT Exam ENT Exam: Mucous Membranes Dry - Neck Exam Neck Exam: absent: Lymphadenopathy - Respiratory Exam Respiratory Exam: Decreased Breath Sounds - Cardiovascular Exam Cardiovascular Exam: REGULAR RHYTHM - GI/Abdominal Exam GI & Abdominal Exam: Distended - Rectal Exam Rectal Exam: Deferred - Exam Exam: NORMAL INSPECTION - Extremities Exam Extremities Exam: Pedal Edema - Back Exam Back Exam: absent: CVA tenderness (L), CVA tenderness (R) - Neurological Exam Neurological Exam: Alert, Awake, CN II-XII Intact, Oriented x3 - Skin Additional comments: LLE focused physical exam: VASC: DP pulse palpable 2/4. PT pulse unable to be obtained due to location of wound. CFT <3 seconds to all digits. Temperature gradient warm to warm, increase in warmth medial ankle periwound. Nonpitting edema noted to ankle and foot. NEURO: Gross sensation intact. Hyperesthesia medial ankle, improving. DERM: Surgical wound to medial ankle appears dehisced with defect measuring approximately 5 x 1.5 cm; wound is noted to have a 90% fibrotic and 10% necrotic base and deep rubor periwound, extending 2cm circumfirentially; sutures remain within wound bed; malodor present; serosanguinous drainage noted. ORTHO: Pain on palpation medial ankle. Absent palpable cord. Assessment and Plan (1) Deep vein thrombosis Status: Acute (2) Surgical wound infection Status: Acute (3) Diabetes mellitus type 2, diet-controlled Status: Acute (4) Plantar fasciitis Status: Acute
[2018-02-04] MEDS ORDERED: Lactulose 10 gm/15 ml Syrup PO PRN (12:22)
[2018-02-04] MEDS ORDERED: Bisacodyl 5mg EC Tab PO PRN (12:22)
--- NOTE | 2018-02-04 13:56 | MRI ---
MRI left ankle History: Ankle infection. Wound dehiscence. Comparison: None available. Technique: Multi-echo multiplanar sequences were performed through the left ankle without and with the use of intravenous contrast. Findings: Large soft tissue ulceration / defect seen within the posterior medial soft tissues of the left ankle measuring up to 3.5 x 1.9 centimeters extending to the medial aspect of the posterior tibial sheath. Prominent surrounding reticulation and edema within the circumferential subcutaneous soft tissues. Extending from the wound dehiscence inferiorly to the level of the medial aspect of the mid to posterior calcaneus there is an enhancing 1.1 x 0.7 x 2.0 centimeter ovoid collection demonstrating decreased T1 signal and increased STIR signal concerning for a possible abscess collection. Minimal patchy reactive edema noted within the medial mid calcaneus at the site of the abscess may represent some reactive edema. Continued interval followup is recommended to exclude a developing early acute osteomyelitis. Prominent reticulation and edema within the adjacent volar sided musculature suggestive for an underlying myositis. Reticulation and edema within the circumferential subcutaneous soft tissues. Anterior extensor tendons are preserved. Moderate tenosynovitis of the posterior tibial tendon sheath. Remainder of the medial flexor tendons are preserved. Moderate tenosynovitis of the peroneal tendon sheaths. Anterior and posterior tibiofibular ligaments are preserved. Prominent large partial tearing of the anterior and posterior talofibular ligaments. Scattered areas of signal abnormality with increased STIR signal and some mild patchy decreased T1 signal seen throughout the foot including at the level of base of the 4th metatarsal bone, proximal aspect of the cuboid bone, proximal aspect of medial and middle cuneiform bones, proximal and distal aspects of the navicular bone, anterior aspect of the calcaneus near its articulation the cuboid bone, dorsal aspect of the talus and navicular bones, and distal tibia. This may be the sequelae of degenerative changes however superimposed acute inflammatory and or infectious changes cannot entirely be excluded. Marked thickening of the plantar fascia with associated bony spurring measuring up to 1.2 centimeters suggestive for a severe plantar fasciitis. Moderate increased signal within the distal Achilles tendon suggestive for a moderate distal Achilles tendinopathy. 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 Small ankle joint effusion. Deltoid ligament is preserved. Impression: 1. Large soft tissue ulceration / defect seen within the posterior medial soft tissues of the left ankle measuring up to 3.5 x 1.9 centimeters extending to the medial aspect of the posterior tibial sheath. Prominent surrounding reticulation and edema within the circumferential subcutaneous soft tissues. Extending from the wound dehiscence inferiorly to the level of the medial aspect of the mid to posterior calcaneus there is an enhancing 1.1 x 0.7 x 2.0 centimeter ovoid collection extending into the posterior tarsal tunnel demonstrating decreased T1 signal and increased STIR signal concerning for a possible abscess collection. Minimal patchy reactive edema noted within the medial mid calcaneus at the site of the abscess may represent some reactive edema. Continued interval followup is recommended to exclude a developing early acute osteomyelitis. Prominent reticulation and edema within the adjacent volar sided musculature suggestive for an underlying myositis. Reticulation and edema within the circumferential subcutaneous soft tissues. 2. Moderate tenosynovitis of the posterior tibial tendon sheath. 3. Moderate tenosynovitis of the peroneal tendon sheaths. 4. Prominent large partial tearing of the anterior and posterior talofibular ligaments. 5. Scattered areas of signal abnormality with increased STIR signal and some mild patchy decreased T1 signal seen throughout the foot including at the level of base of the 4th metatarsal bone, proximal aspect of the cuboid bone, proximal aspect of medial and middle cuneiform bones, proximal and distal aspects of the navicular bone, anterior aspect of the calcaneus near its articulation the cuboid bone, dorsal aspect of the talus and navicular bones, and distal tibia. This may be the sequelae of degenerative changes however superimposed acute inflammatory and or infectious changes cannot entirely be excluded. 6. Marked thickening of the plantar fascia with associated bony spurring measuring up to 1.2 centimeters suggestive for a severe plantar fasciitis. 7. Moderate increased signal within the distal Achilles tendon suggestive for a moderate distal Achilles tendinopathy. 8. 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 9. Small ankle joint effusion.
[2018-02-04] MEDS: Enoxaparin 120 mg Syringe SC SCH (17:04)
--- NOTE | 2018-02-04 17:21 | CP.PCM.PN ---
Subjective - Date & Time of Evaluation Date of Evaluation: 02/04/18 Time of Evaluation: 09:00 - Subjective Subjective: Podiatry Progress Note - Dr. Estevez 48 year old female patient PMHx HTN, DM, hypercholesterolemia seen and evaluated at bedside for infected surgical wound left ankle. No acute events overnight. Patient reports increased pain today but relates it to increased movement with LLE - had MRI yesterday and arterial dopplers today which she states jostled her foot. Admits overall pain has decreased since initial presentation. Offers no other complaints. Dressings clean/dry/intact. Denies N/V /F/D/C/SOB. Objective - Vital Signs/Intake and Output Vital Signs (last 24 hours): Temp Pulse Resp BP Pulse Ox 98.3 F 96 H 19 104/67 99 02/04/18 15:45 02/04/18 15:45 02/04/18 15:45 02/04/18 15:45 02/04/18 15:45 - Medications Medications: Current Medications Acetaminophen (Tylenol 325mg Tab) 650 mg PO Q4 PRN PRN Reason: Pain, Mild (1-3) Bisacodyl (Dulcolax) 5 mg PO DAILY PRN PRN Reason: Constipation Cadexomer Iodine (Iodosorb 0.9%) 1 applic TOP QOTHERDAY [facility] Last Admin: 02/03/18 11:58 Dose: 1 applic Docusate Sodium (Colace) 100 mg PO DAILY PRN PRN Reason: Constipation Last Admin: 02/03/18 09:03 Dose: 100 mg Enoxaparin Sodium (Lovenox) 110 mg SC DAILY@1700 [facility] PRN Reason: Protocol Last Admin: 02/04/18 17:04 Dose: 110 mg Hydrochlorothiazide (Microzide) 12.5 mg PO DAILY [facility] Last Admin: 02/04/18 08:30 Dose: 12.5 mg Hydromorphone HCl (Dilaudid) 1 mg IVP Q6 PRN PRN Reason: Pain, severe (8-10) Last Admin: 02/04/18 11:32 Dose: 1 mg Piperacillin Sod/Tazobactam (Sod 3.375 gm/ Sodium Chloride) 100 mls @ 100 mls/ hr IVPB Q8 [facility] PRN Reason: Protocol Last Admin: 02/04/18 17:05 Dose: 100 mls/hr Insulin Human Regular (Humulin R) 0 units SC ACCU-CHECK [facility] PRN Reason: Protocol Last Admin: 02/04/18 16:55 Dose: Not Given Lactulose (Enulose) 10 gm PO DAILY PRN PRN Reason: Constipation Levothyroxine Sodium (Synthroid) 25 mcg PO DAILY@0630 [facility] Last Admin: 02/04/18 06:49 Dose: 25 mcg Lidocaine (Lidoderm) 1 ea TD DAILY [facility] Last Admin: 02/04/18 08:29 Dose: Not Given Lidocaine HCl (Xylocaine 2%) 1 applic TOP DAILY [facility] Last Admin: 02/03/18 11:57 Dose: 1 applic Multivitamins/Minerals (Therapeutic-M Tab) 1 tab PO HS [facility] Last Admin: 02/03/18 22:43 Dose: 1 tab Ondansetron HCl (Zofran Inj) 4 mg IVP Q6 PRN PRN Reason: Nausea/Vomiting Last Admin: 02/03/18 11:57 Dose: 4 mg Oxycodone/Acetaminophen (Percocet 5/325 Mg Tab) 1 tab PO Q6 PRN PRN Reason: Pain, moderate (4-7) Stop: 02/05/18 09:11 Pantoprazole Sodium (Protonix Ec Tab) 40 mg PO DAILY [facility] Last Admin: 02/04/18 08:30 Dose: 40 mg Repaglinide (Prandin) 2 mg PO TID [facility] Last Admin: 02/04/18 17:01 Dose: Not Given Valsartan (Diovan) 160 mg PO DAILY [facility] Last Admin: 02/04/18 08:29 Dose: 160 mg Zolpidem Tartrate (Ambien) 5 mg PO HS PRN PRN Reason: Insomnia Last Admin: 02/04/18 00:24 Dose: 5 mg - Labs Labs: 02/03/18 04:25 02/03/18 04:25 PT 11.0 Seconds (9.8-13.1) 02/01/18 17:32 INR 1.0 (0.9-1.2) 02/01/18 17:32 APTT 32.3 Seconds (25.6-37.1) 02/01/18 17:32 - Constitutional Appears: Well, Non-toxic, No Acute Distress - Extremities Exam Additional comments: Dressing to LLE appears clean/dry/intact with no strikethrough noted - Neurological Exam Neurological Exam: Alert, Awake, Oriented x3 - Psychiatric Exam Psychiatric exam: Anxious Assessment and Plan - Assessment and Plan (Free Text) Assessment: 48 year old female with 1) infected surgical wound left ankle, improving 2) LLE DVT within superficial femoral and popliteal veins Plan: Patient seen and evaluated Discussed with attending, Dr. Estevez Labs and vitals reviewed LLE venous duplex (02/01/18): DVT within superficial femoral and popliteal veins Chest CT ordered r/o PE (02/01/18): Limited study due to suboptimal opacification and large body habitus demonstrating no acute central pulmonary embolus; no acute consolidation, mild atelectasis both posterior lower lung zones LLE MRI (02/03/18): Possible abscess collection medial aspect of mid/posterior calcaneus measuring 1.1 x 0.7 x 2.0cm, extends into posterior tarsal tunnel. LLE arterial duplex (02/04/18): awaiting report Therapeutic Lovenox 110mc SC QD; DVT management per primary team Left ankle WCx - staphylococcus aureus ID consulted - d/c Vancomycin, Zosyn 3.375g IV Continue local wound care - Iodosorb QOD, lidocaine jelly may be applied per wound - dressing change tomorrow Pain management - Lidoderm TD, Percocet 1 tab PO breakthrough, Dilaudid 1mg IV, Tyleonl 650mg PO Podiatry will continue to follow while in house
[2018-02-04] MEDS: Multivitamin With Minerals Tab PO SCH (22:42)
[2018-02-05] MEDS: Piperacillin/Tazobact 3.375 GM in Sodium Chloride 0.9% 100 ML IVPB SCH ×3 (00:02→17:02)
[2018-02-05 05:31] LABS: HEMOGLOBIN 12.2 g/dL (12.0-16.0); MEAN CELL VOLUME 86.7 fl (81.0-99.0); MEAN CORPUSCULAR HEMOGLOBIN 29.5 pg (27.0-31.0); MEAN CORPUSCULAR HGB CONC 34.1 g/dL (33.0-37.0); RBC 4.14 Mil/uL (3.80-5.20); RED CELL DISTRIBUTION WIDTH 13.3 % (11.5-14.5); WHITE BLOOD COUNT 8.7 K/uL (4.8-10.8)
[2018-02-05 05:49] LABS: ALBUMIN 3.5 g/dL (3.5-5.0); BLOOD UREA NITROGEN 16 mg/dl (7-17); CALCIUM 9.3 mg/dL (8.4-10.2); GFR AFRICAN-AMERICAN > 60; GFR NON-AFRICAN AMERICAN > 60
[2018-02-05 05:50] LABS: ALT/SGPT 77 U/L (9-52); AST/SGOT 54 U/L (14-36)
--- NOTE | 2018-02-05 07:30 | CP.PCM.PN ---
<Randal Soto - Last Filed: 02/05/18 08:07> Subjective - Date & Time of Evaluation Date of Evaluation: 02/05/18 Time of Evaluation: 07:45 - Subjective Subjective: Patient evaluated with Dr Shine during rounds. Stable, no acute events overnight. Patient to be taken for wound debridement by Podiatry today. NPO. Pain controlled. Denies nausea, vomiting, CP, SOB, abd pain. Objective - Vital Signs/Intake and Output Vital Signs (last 24 hours): Temp Pulse Resp BP Pulse Ox 98.1 F 93 H 18 102/68 98 02/05/18 05:25 02/05/18 05:25 02/05/18 05:25 02/05/18 06:10 02/05/18 05:25 - Medications Medications: Current Medications Acetaminophen (Tylenol 325mg Tab) 650 mg PO Q4 PRN PRN Reason: Pain, Mild (1-3) Bisacodyl (Dulcolax) 5 mg PO DAILY PRN PRN Reason: Constipation Cadexomer Iodine (Iodosorb 0.9%) 1 applic TOP QOTHERDAY ON LICENSE OF [facility] Last Admin: 02/03/18 11:58 Dose: 1 applic Docusate Sodium (Colace) 100 mg PO DAILY PRN PRN Reason: Constipation Last Admin: 02/03/18 09:03 Dose: 100 mg Enoxaparin Sodium (Lovenox) 110 mg SC DAILY@1700 [facility] PRN Reason: Protocol Last Admin: 02/04/18 17:04 Dose: 110 mg Hydrochlorothiazide (Microzide) 12.5 mg PO DAILY ON [facility] OF [facility] Last Admin: 02/04/18 08:30 Dose: 12.5 mg Hydromorphone HCl (Dilaudid) 1 mg IVP Q6 PRN PRN Reason: Pain, severe (8-10) Last Admin: 02/05/18 05:26 Dose: 1 mg Piperacillin Sod/Tazobactam (Sod 3.375 gm/ Sodium Chloride) 100 mls @ 100 mls/ hr IVPB Q8 ON LICENSE OF [facility] PRN Reason: Protocol Last Admin: 02/05/18 00:02 Dose: 100 mls/hr Insulin Human Regular (Humulin R) 0 units SC ACCU-CHECK ON LICENSE OF [facility] PRN Reason: Protocol Last Admin: 02/04/18 22:41 Dose: Not Given Lactulose (Enulose) 10 gm PO DAILY PRN PRN Reason: Constipation Levothyroxine Sodium (Synthroid) 25 mcg PO DAILY@0630 ON [facility] Last Admin: 02/04/18 06:49 Dose: 25 mcg Lidocaine (Lidoderm) 1 ea TD DAILY ON [facility] OF [facility] Last Admin: 02/04/18 08:29 Dose: Not Given Lidocaine HCl (Xylocaine 2%) 1 applic TOP DAILY ON [facility] Last Admin: 02/03/18 11:57 Dose: 1 applic Multivitamins/Minerals (Therapeutic-M Tab) 1 tab PO HS ON LICENSE OF [facility] Last Admin: 02/04/18 22:42 Dose: 1 tab Ondansetron HCl (Zofran Inj) 4 mg IVP Q6 PRN PRN Reason: Nausea/Vomiting Last Admin: 02/03/18 11:57 Dose: 4 mg Oxycodone/Acetaminophen (Percocet 5/325 Mg Tab) 1 tab PO Q6 PRN PRN Reason: Pain, moderate (4-7) Stop: 02/05/18 09:11 Pantoprazole Sodium (Protonix Ec Tab) 40 mg PO DAILY ON [facility] OF [facility] Last Admin: 02/04/18 08:30 Dose: 40 mg Repaglinide (Prandin) 2 mg PO TID ON LICENSE OF [facility] Last Admin: 02/04/18 17:01 Dose: Not Given Valsartan (Diovan) 160 mg PO DAILY ON [facility] Last Admin: 02/04/18 08:29 Dose: 160 mg Zolpidem Tartrate (Ambien) 5 mg PO HS PRN PRN Reason: Insomnia Last Admin: 02/04/18 22:50 Dose: 5 mg - Labs Labs: 02/05/18 04:15 02/05/18 04:15 PT 11.0 Seconds (9.8-13.1) 02/01/18 17:32 INR 1.0 (0.9-1.2) 02/01/18 17:32 APTT 32.3 Seconds (25.6-37.1) 02/01/18 17:32 - Constitutional Appears: Non-toxic, No Acute Distress - Eye Exam Eye Exam: EOMI, PERRL - ENT Exam ENT Exam: Mucous Membranes Moist - Respiratory Exam Respiratory Exam: Clear to Ausculation Bilateral, NORMAL BREATHING PATTERN. absent: Rales - Cardiovascular Exam Cardiovascular Exam: REGULAR RHYTHM, +S1, +S2. absent: Gallop - GI/Abdominal Exam GI & Abdominal Exam: Soft, Normal Bowel Sounds. absent: Tenderness, Rebound - Extremities Exam Extremities Exam: Calf Tenderness (Mild, l/leg) Additional comments: Left ankle covered with dressing which appears to be intact. - Neurological Exam Neurological Exam: Alert, Awake, Oriented x3 - Psychiatric Exam Psychiatric exam: Normal Affect, Normal Mood - Skin Skin Exam: Warm Assessment and Plan - Assessment and Plan (Free Text) Assessment: L/ankle chronic ulcer, cellulitis MRI shows poss collection and cant r/o OM Patient scheduled for I&D today by Podiatry team C/W IV abx For Abd US today due to elevated LFTs ID consult appreciated Podiatry consult appreciated She had been on therapeutic lovenox for DVT. Held today's dose She is medically cleared at this time for I&D today <Steve Shine K - Last Filed: 02/08/18 10:56> Objective - Vital Signs/Intake and Output Vital Signs (last 24 hours): Temp Pulse Resp BP Pulse Ox 99 F 92 H 18 109/73 97 02/07/18 23:56 02/07/18 23:56 02/07/18 23:56 02/07/18 23:56 02/07/18 23:56 - Labs Labs: 02/07/18 06:15 02/07/18 06:15 PT 11.0 Seconds (9.8-13.1) 02/01/18 17:32 INR 1.0 (0.9-1.2) 02/01/18 17:32 APTT 32.3 Seconds (25.6-37.1) 02/01/18 17:32 Assessment and Plan - Assessment and Plan (Free Text) Assessment: Patient was personally seen and examined by me in rounds with residents. Available labs and diagnostic data reviewed. Case, patient's conditions and management plan discussed with residents in rounds. Agree with resident's progress note. Plan: As ordered.
[2018-02-05] MEDS: Levothyroxine 25 MCG TAB PO SCH (07:44)
[2018-02-05] MEDS: Insulin Regular 100 units/ml SC SCH ×4 (07:47→23:00)
--- NOTE | 2018-02-05 07:49 | CP.PCM.PN ---
Subjective - Date & Time of Evaluation Date of Evaluation: 02/05/18 Time of Evaluation: 07:49 - Subjective Subjective: Podiatry Progress Note - Dr. Estevez 48 year old female patient PMHx HTN, DM, hypercholesterolemia seen and evaluated at bedside for infected surgical wound left ankle. No acute events overnight. Patient reports decreased pain to LLE. Patient aware she is scheduled for left ankle I&D/wound debridement this AM, NPO confirmed. Offers no other complaints. Dressings clean/dry/intact. Denies N/V/F/D/C/SOB. Objective - Vital Signs/Intake and Output Vital Signs (last 24 hours): Temp Pulse Resp BP Pulse Ox 98.1 F 93 H 18 102/68 98 02/05/18 05:25 02/05/18 05:25 02/05/18 05:25 02/05/18 06:10 02/05/18 05:25 - Medications Medications: Current Medications Acetaminophen (Tylenol 325mg Tab) 650 mg PO Q4 PRN PRN Reason: Pain, Mild (1-3) Bisacodyl (Dulcolax) 5 mg PO DAILY PRN PRN Reason: Constipation Cadexomer Iodine (Iodosorb 0.9%) 1 applic TOP QOTHERDAY [facility] Last Admin: 02/03/18 11:58 Dose: 1 applic Docusate Sodium (Colace) 100 mg PO DAILY PRN PRN Reason: Constipation Last Admin: 02/03/18 09:03 Dose: 100 mg Enoxaparin Sodium (Lovenox) 110 mg SC DAILY@1700 [facility] PRN Reason: Protocol Last Admin: 02/04/18 17:04 Dose: 110 mg Hydrochlorothiazide (Microzide) 12.5 mg PO DAILY [facility] Last Admin: 02/04/18 08:30 Dose: 12.5 mg Hydromorphone HCl (Dilaudid) 1 mg IVP Q6 PRN PRN Reason: Pain, severe (8-10) Last Admin: 02/05/18 05:26 Dose: 1 mg Piperacillin Sod/Tazobactam (Sod 3.375 gm/ Sodium Chloride) 100 mls @ 100 mls/ hr IVPB Q8 [facility] PRN Reason: Protocol Last Admin: 02/05/18 00:02 Dose: 100 mls/hr Insulin Human Regular (Humulin R) 0 units SC ACCU-CHECK [facility] PRN Reason: Protocol Last Admin: 02/04/18 22:41 Dose: Not Given Lactulose (Enulose) 10 gm PO DAILY PRN PRN Reason: Constipation Levothyroxine Sodium (Synthroid) 25 mcg PO DAILY@0630 [facility] Last Admin: 02/04/18 06:49 Dose: 25 mcg Lidocaine (Lidoderm) 1 ea TD DAILY [facility] Last Admin: 02/04/18 08:29 Dose: Not Given Lidocaine HCl (Xylocaine 2%) 1 applic TOP DAILY [facility] Last Admin: 02/03/18 11:57 Dose: 1 applic Multivitamins/Minerals (Therapeutic-M Tab) 1 tab PO HS [facility] Last Admin: 02/04/18 22:42 Dose: 1 tab Ondansetron HCl (Zofran Inj) 4 mg IVP Q6 PRN PRN Reason: Nausea/Vomiting Last Admin: 02/03/18 11:57 Dose: 4 mg Oxycodone/Acetaminophen (Percocet 5/325 Mg Tab) 1 tab PO Q6 PRN PRN Reason: Pain, moderate (4-7) Stop: 02/05/18 09:11 Pantoprazole Sodium (Protonix Ec Tab) 40 mg PO DAILY [facility] Last Admin: 02/04/18 08:30 Dose: 40 mg Repaglinide (Prandin) 2 mg PO TID [facility] Last Admin: 02/04/18 17:01 Dose: Not Given Valsartan (Diovan) 160 mg PO DAILY [facility] Last Admin: 02/04/18 08:29 Dose: 160 mg Zolpidem Tartrate (Ambien) 5 mg PO HS PRN PRN Reason: Insomnia Last Admin: 02/04/18 22:50 Dose: 5 mg - Labs Labs: 02/05/18 04:15 02/05/18 04:15 PT 11.0 Seconds (9.8-13.1) 02/01/18 17:32 INR 1.0 (0.9-1.2) 02/01/18 17:32 APTT 32.3 Seconds (25.6-37.1) 02/01/18 17:32 - Constitutional Appears: Well, Non-toxic, No Acute Distress - Extremities Exam Additional comments: Dressing to LLE clean/dry/intact - Neurological Exam Neurological Exam: Alert, Awake, Oriented x3 - Psychiatric Exam Psychiatric exam: Anxious Assessment and Plan - Assessment and Plan (Free Text) Assessment: 48 year old female with 1) infected surgical wound left ankle, improving 2) LLE DVT within superficial femoral and popliteal veins Plan: Patient seen and evaluated Discussed with attending, Dr. Estevez Labs and vitals reviewed LLE venous duplex (02/01/18): DVT within superficial femoral and popliteal veins Chest CT ordered r/o PE (02/01/18): Limited study due to suboptimal opacification and large body habitus demonstrating no acute central pulmonary embolus; no acute consolidation, mild atelectasis both posterior lower lung zones LLE MRI (02/03/18): Possible abscess collection medial aspect of mid/posterior calcaneus measuring 1.1 x 0.7 x 2.0cm, extends into posterior tarsal tunnel. LLE arterial duplex (02/04/18): awaiting report Therapeutic Lovenox 110mc SC QD; DVT management per primary team Left ankle WCx - staphylococcus aureus ID consulted - d/c Vancomycin, Zosyn 3.375g IV To OR today for left ankle I&D/wound debridement. NPO confirmed All Pre-op testing and clearance was in the chart Pt has exhausted all conservative treatment at this time and is opting for surgical intervention Pt was explained procedure and post-operative course All pt's questions were answered to satisfaction No guarantees were made Pt understands all risks, benefits and complications of procedure Pain management - Lidoderm TD, Percocet 1 tab PO breakthrough, Dilaudid 1mg IV, Tylenol 650mg PO Podiatry will continue to follow while in house
[2018-02-05] MEDS ORDERED: Bupivacaine 0.5% Inj(30mL) IJ ONE (09:41)
[2018-02-05] MEDS ORDERED: Lidocaine 1% Inj (20ml) IJ ONE (09:41)
[2018-02-05] MEDS: Pantoprazole 40 mg EC Tab PO SCH (09:51)
[2018-02-05] MEDS ORDERED: Rocuronium 10 mg/ml (5 ml) ONE (10:05)
[2018-02-05] MEDS ORDERED: Propofol 10 mg/ml Inj (20 ML) ONE (10:05)
[2018-02-05] MEDS ORDERED: Succinylcholine 200 mg/10 ml Inj IV ONE (10:05)
[2018-02-05] MEDS ORDERED: Bupivacaine HCl 0.5% PF (10 ml) Inj ONE (10:08)
--- NOTE | 2018-02-05 10:12 | US ---
HISTORY: abn lft COMPARISON: CT scan of the abdomen pelvis dated 01/21/2017. TECHNIQUE: Sonographic evaluation of the abdomen. FINDINGS: LIVER: Enlarged, measuring 18.7 cm. Normal echogenicity of the liver parenchyma. No mass. No intrahepatic bile duct dilatation. GALLBLADDER: Prior cholecystectomy. COMMON BILE DUCT: Measures 4 mm. No stones. No dilatation. PANCREAS: Not well-visualized. RIGHT KIDNEY: Measures 10.3 x 5.8 x 4.6cm. Normal echogenicity. No calculus, mass, or hydronephrosis. LEFT KIDNEY: Measures 11.7 x 5.1 x 5.3cm. Normal echogenicity. No calculus, mass, or hydronephrosis. SPLEEN: Normal in size and contour. No mass. AORTA: No aneurysmal dilatation. IVC: Unremarkable. OTHER FINDINGS: None. IMPRESSION: Prior cholecystectomy. Otherwise, unremarkable abdominal sonogram.
[2018-02-05] MEDS ORDERED: Bupivacaine 0.5% Inj(30mL) ONE (10:21)
[2018-02-05] MEDS ORDERED: Lidocaine 1% Inj (20ml) ONE (10:21)
[2018-02-05] MEDS ORDERED: Lactated Ringer's 1,000 ML IV ONE ×2 (10:50→12:02)
[2018-02-05] MEDS ORDERED: Piperacillin/Tazobact 3.375 gm Inj IVPB ONE (11:00)
[2018-02-05] MEDS ORDERED: Bupivacaine 0.5% 50 ML IJ ONE (11:25)
[2018-02-05] MEDS ORDERED: Neostigmine 1:1000 (1 mg/ml) Inj ONE (11:50)
--- NOTE | 2018-02-05 12:07 | PCM.SURG1 ---
Surgeon's Initial Post Op Note - Surgeon's Notes Surgeon: Dr. Mustapha Estevez DPM Checking Department Supervisor: Dr. Lavonne Pichardo DPM PGY-1 Type of Anesthesia: Block Regional, Local Anesthesia Administered By: Dr. Peace Pre-Operative Diagnosis: Left foot wound with abscess Operative Findings: See dictation. M: 3-0 nylone, 1 inch idoform packing. I: 9cc of 0.5% marcain plain with epi Post-Operative Diagnosis: Same Operation Performed: Incision and drainage of left foot wound with removal of all non-viable soft tissue Specimen/Specimens Removed: Culture. Tissue from the wound Estimated Blood Loss: EBL {In ML}: 20 Blood Products Given: N/A Drains Used: No Drains Post-Op Condition: Good Date of Surgery/Procedure: 02/05/18 Time of Surgery/Procedure: 12:08
--- NOTE | 2018-02-05 12:14 | PCM.ANESB7 ---
Adductor Canal Block - Adductor Canal Block Date of Procedure: 02/05/18 Anesthiologist: Nata Pre-Procedure Diagnosis: Wound dehiscence left ankle Post-Procedure Diagnosis: Same Procedure Performed: Adductor Canal Block Left - Procedure Adductor Canal Block: After thorough discussion with surgeon regarding risks and benefits of performing peripheral nerve block on patients receiving anticoagulation, the block was performed at request of the surgeon. The procedure was explained to the patient that it is for the post-operative pain management. Consent was obtained after a thorough discussion with the patient regarding the benefits and possible complications of local anesthetic adductor canal block of the femoral nerve. Standard monitors, as defined by the ASA, were applied to the patient. Time-out was held with the circulating nurse to confirm the appropriate block. Under general anesthesia, the patient was placed in supine position with and the operative leg was flexed slightly at the knee and externally rotated as needed, and was kept anatomically stable. The mid-thigh of the __left lower extremity was exposed. The ultrasound transducer was then applied transversely along the medial aspect, about midway down the thigh and the femoral artery and vein were identified in appropriate relation with the sartorius muscle. At this time, the femoral nerve was visualized lateral to the femoral artery within the canal. After thorough identification, this area area was prepped with Chloroprep solution three times. At this point, a #22 gauge Stimuplex 4-inch needle was inserted in-plane in a [id number] orientation, and advanced toward the femoral nerve. Advancement was performed carefully under direct ultrasound visualization. The femoral artery was kept in view throughout and was not entered. Nerve stimulator was used and appropriate muscle twitch was obtained at current of __ 0.4___MA. After negative aspiration, __2___cc of __0.5___% ___bupivicaine was injected and this was followed with __8____ cc of ___0.5____ % ___ _bupivicaine . Under ultrasound guidance the local anesthetics were observed spreading around the femoral nerve. The needle was removed intact and sterile dressing was applied. The patient had stable vital signs following the injection and no bleeding was seen at the puncture site. The patient tolerated the femoral nerve block well with stable vital signs and was prepared for subsequent surgery
--- NOTE | 2018-02-05 12:17 | PCM.ANESB2 ---
Popliteal Nerve Block - Popliteal Nerve Block Date of Procedure: 02/05/18 Anesthesiologist: Nata Pre-Procedure Diagnosis: Wound dehiscence left ankle Post-Procedure Diagnosis: Same Procedure Performed: Popliteal Nerve Block Left - Procedure Popliteal Nerve Block: After thorough discussion with surgeon regarding risks and benefits of performing peripheral nerve block on patients receiving anticoagulation, the block was performed at request of the surgeon. This procedure was explained to the patient that it is for post-operative pain management. Consent was obtained after a thorough discussion with the patient regarding the benefits and possible complications of local anesthetic block of the sciatic nerve at the popliteal level. The patient was brought to the operating room and standard monitors are applied. Time-out was held with the circulating nurse to confirm the correct surgery and the appropriate block. Under general anesthesia, patient 's operative leg was gently raised and supported and the groove in between the biceps femoris and vastus lateralis muscles was carefully palpated. The skin approximately 8cm above the popliteal crease was then marked. The ultrasound transducer was then applied to the posterior thigh approximately 8cm above the popliteal crease in the transverse plane and the sciatic nerve before its division was visualized lateral to the popliteal artery and in between the bicep femoris and semimembranosus/semitendinosus muscles. After identification, the lateral portion of the thigh was prepped with Chloraprep. At this point, a # 21 gauge Stimuplex insulated 4 inch needle was inserted into pre-marked area and advanced in a perpendicular direction. The needle was inserted above the ultrasound transducer in-plane towards the sciatic nerve in a [id number] direction. Needle advancement was performed carefully under direct ultrasound visualization. The popliteal artery was visualized throughout and was not entered. Nerve stimulator was used and dorsiflexion of the ___left_ _ foot was elicited at a current of __0.4___ MA. After repeated negative aspiration, __2___cc of __0.5___ % ____bupivicaine was injected and this was flowed with _18 cc of __0.5____% _bupivicaine . Under ultrasound guidance the local anesthetics were observed surrounding sciatic nerve . The needle was removed intact, no bleeding was seen at the puncture site and sterile dressing was applied. The patient tolerated the popliteal nerve block well with stable vital signs and was subsequently prepared for the surgery.
[2018-02-05] MEDS: Lidocaine 5% Patch TD SCH (13:45)
[2018-02-05] MEDS: Enoxaparin 120 mg Syringe SC SCH (17:03)
--- NOTE | 2018-02-05 19:04 | US ---
PROCEDURE: Left Lower Extremity Arterial Exam. HISTORY: left medial ankle nonhealing wound COMPARISON: None available. TECHNIQUE: Grayscale and duplex Doppler evaluation of the left common femoral, femoral, profunda femoral, popliteal, posterior tibial, anterior tibial and dorsalis pedis arteries was performed. FINDINGS: LEFT LOWER EXTREMITY: Low resistance waveforms are monophasic throughout the and superficial femoral, popliteal, anterior and posterior tibial arteries compatible with high-grade arterial disease though these vessels appear to be patent. Atherosclerotic plaque is seen throughout the [place] though on a somewhat limited fashion. The could this could reflect high-grade distal aortic or left iliac arterial stenoses or even occlusion with collateralized blood flow. Based on the velocities are as follows: Common femoral artery measure up to 35.9 centimeter/second, Proximal SFA 106.9 cm/second, Mid SFA 142.5 cm/second, Distal SFA a 155.8 centimeter/second, Popliteal artery 95.0 cm/second, Anterior tibial artery 76.6 cm/second And posterior tibial artery 6.62.5 cm/second. OTHER FINDINGS: Incidental note is made of occlusive thrombosis at the mid to distal popliteal vein. IMPRESSION: 1. Incidental occlusive thrombosis mid to distal popliteal vein. 2. Potential high-grade stenosis or even occlusion with collateralized blood flow at the inferior abdominal aorta or left iliac arterial system versus advanced arterial disease throughout the left lower extremity with the latter not favored. Follow-up CT or MR angiography is advised or conventional DSA for additional characterization.
[2018-02-05] MEDS: Multivitamin With Minerals Tab PO SCH (21:37)
[2018-02-06] MEDS: Piperacillin/Tazobact 3.375 GM in Sodium Chloride 0.9% 100 ML IVPB SCH ×3 (00:11→17:03)
[2018-02-06 05:49] LABS: HEMOGLOBIN 11.3 g/dL (12.0-16.0); MEAN CELL VOLUME 86.7 fl (81.0-99.0); MEAN CORPUSCULAR HEMOGLOBIN 29.9 pg (27.0-31.0); MEAN CORPUSCULAR HGB CONC 34.5 g/dL (33.0-37.0); RBC 3.78 Mil/uL (3.80-5.20); RED CELL DISTRIBUTION WIDTH 13.6 % (11.5-14.5); WHITE BLOOD COUNT 7.5 K/uL (4.8-10.8)
[2018-02-06 06:09] LABS: ALB/GLOB RATIO 0.9 (1.0-2.1); ALBUMIN 3.2 g/dL (3.5-5.0); ALT/SGPT 81 U/L (9-52); AST/SGOT 58 U/L (14-36); BLOOD UREA NITROGEN 16 mg/dl (7-17); CALCIUM 8.8 mg/dL (8.4-10.2); GFR AFRICAN-AMERICAN > 60; GFR NON-AFRICAN AMERICAN > 60
[2018-02-06] MEDS: Levothyroxine 25 MCG TAB PO SCH (06:19)
[2018-02-06] MEDS ORDERED: Cellulose Hemostat 2X3 Sheet TP ONE (06:21)
[2018-02-06] MEDS: Insulin Regular 100 units/ml SC SCH ×4 (06:59→22:24)
--- NOTE | 2018-02-06 07:43 | CP.PCM.PN ---
Subjective - Date & Time of Evaluation Date of Evaluation: 02/06/18 Time of Evaluation: 07:43 - Subjective Subjective: Podiatry Progress Note - Dr. Estevez 48 year old female patient PMHx HTN, DM, hypercholesterolemia seen and evaluated at bedside for infected surgical wound left ankle, POD#1 L foot I&D. Patient hemodynamically stable and NAD. No issues overnight. Patient admits to pain in her left ankle s/p surgery but believes the pain has decreased greatly since initial admission. No other complaints. Denies N/V/F/D/C/SOB. Objective - Vital Signs/Intake and Output Vital Signs (last 24 hours): Temp Pulse Resp BP Pulse Ox 98.9 F 97 H 18 106/69 97 02/06/18 05:07 02/06/18 05:07 02/06/18 05:07 02/06/18 05:07 02/06/18 05:07 - Medications Medications: Current Medications Acetaminophen (Tylenol 325mg Tab) 650 mg PO Q4 PRN PRN Reason: Pain, Mild (1-3) Last Admin: 02/06/18 05:02 Dose: 650 mg Bisacodyl (Dulcolax) 5 mg PO DAILY PRN PRN Reason: Constipation Cadexomer Iodine (Iodosorb 0.9%) 1 applic TOP QOTHERDAY [facility] Last Admin: 02/03/18 11:58 Dose: 1 applic Enoxaparin Sodium (Lovenox) 110 mg SC DAILY@1700 [facility] PRN Reason: Protocol Last Admin: 02/05/18 17:03 Dose: 110 mg Hydrochlorothiazide (Microzide) 12.5 mg PO DAILY [facility] Last Admin: 02/05/18 13:40 Dose: Not Given Hydromorphone HCl (Dilaudid) 1 mg IVP Q6 PRN PRN Reason: Pain, severe (8-10) Last Admin: 02/06/18 06:25 Dose: 1 mg Piperacillin Sod/Tazobactam (Sod 3.375 gm/ Sodium Chloride) 100 mls @ 100 mls/ hr IVPB Q8 [facility] PRN Reason: Protocol Last Admin: 02/06/18 00:11 Dose: 100 mls/hr Insulin Human Regular (Humulin R) 0 units SC ACCU-CHECK [facility] PRN Reason: Protocol Last Admin: 02/06/18 06:59 Dose: Not Given Lactulose (Enulose) 10 gm PO DAILY PRN PRN Reason: Constipation Levothyroxine Sodium (Synthroid) 25 mcg PO DAILY@0630 [facility] Last Admin: 02/06/18 06:19 Dose: 25 mcg Lidocaine (Lidoderm) 1 ea TD DAILY [facility] Last Admin: 02/05/18 13:45 Dose: 1 ea Lidocaine HCl (Xylocaine 2%) 1 applic TOP DAILY [facility] Last Admin: 02/03/18 11:57 Dose: 1 applic Multivitamins/Minerals (Therapeutic-M Tab) 1 tab PO HS [facility] Last Admin: 02/05/18 21:37 Dose: 1 tab Ondansetron HCl (Zofran Inj) 4 mg IVP Q6 PRN PRN Reason: Nausea/Vomiting Last Admin: 02/03/18 11:57 Dose: 4 mg Pantoprazole Sodium (Protonix Ec Tab) 40 mg PO DAILY [facility] Last Admin: 02/05/18 09:51 Dose: 40 mg Repaglinide (Prandin) 2 mg PO TID [facility] Last Admin: 02/05/18 17:04 Dose: 2 mg Senna/Docusate Sodium (Senokot S 50 Mg-8.6 Mg) 2 tab PO HS [facility] Valsartan (Diovan) 160 mg PO DAILY [facility] Last Admin: 02/05/18 09:54 Dose: Not Given Zolpidem Tartrate (Ambien) 5 mg PO HS PRN PRN Reason: Insomnia Last Admin: 02/05/18 23:37 Dose: 5 mg - Labs Labs: 02/06/18 05:12 02/06/18 05:12 PT 11.0 Seconds (9.8-13.1) 02/01/18 17:32 INR 1.0 (0.9-1.2) 02/01/18 17:32 APTT 32.3 Seconds (25.6-37.1) 02/01/18 17:32 - Constitutional Appears: Well, Non-toxic, No Acute Distress - Extremities Exam Additional comments: LLE focused physical exam: VASC: DP pulse palpable 2/4. PT pulse unable to be obtained due to location of wound. CFT <3 seconds to all digits. Temperature gradient warm to warm, increase in warmth medial ankle periwound. Nonpitting edema noted to ankle and foot. NEURO: Gross sensation intact. DERM: Surgical wound to medial ankle measuring approximately 5 x 1.5 cm; noted to have a mixed fibrogranular base, extending into fascia; deep rubor periwound extending 2cm circumfirentially; minimal malodor; serosanguinous drainage noted ; packing in place; no purulence able to be expressed. ORTHO: Pain on palpation medial ankle. No pain on palpation calf. - Neurological Exam Neurological Exam: Alert, Awake, Oriented x3 - Psychiatric Exam Psychiatric exam: Anxious Assessment and Plan - Assessment and Plan (Free Text) Assessment: 48 year old female with 1) infected surgical wound left ankle, improving 2) LLE DVT within superficial femoral and popliteal veins POD#1 Incision and drainage of left foot wound with removal of all non-viable soft tissue Plan: Patient seen and evaluated with attending, Dr. Estevez Labs and vitals reviewed f/u ESR, CRP LLE venous duplex (02/01/18): DVT within superficial femoral and popliteal veins Chest CT ordered r/o PE (02/01/18): Limited study due to suboptimal opacification and large body habitus demonstrating no acute central pulmonary embolus; no acute consolidation, mild atelectasis both posterior lower lung zones LLE MRI (02/03/18): Possible abscess collection medial aspect of mid/posterior calcaneus measuring 1.1 x 0.7 x 2.0cm, extends into posterior tarsal tunnel. LLE arterial duplex (02/04/18): awaiting report Therapeutic Lovenox 110mc SC QD; DVT management per primary team Left ankle WCx - staphylococcus aureus F/u intra-op specimens -Deep wound culture: pending -Soft tissue path: pending ID consulted - continue Zosyn 3.375g IV Continue local wound care - packing removed, lidocaine jelly applied periwound, Iodosorb applied, dressed with DSD Pain management - Lidoderm TD, Percocet 1 tab PO breakthrough, Dilaudid 1mg IV, Tyleonl 650mg PO Podiatry will continue to follow while in house
--- NOTE | 2018-02-06 07:57 | CP.PCM.PN ---
<Randal Soto - Last Filed: 02/06/18 13:38> Subjective - Date & Time of Evaluation Date of Evaluation: 02/06/18 Time of Evaluation: 06:55 - Subjective Subjective: Patient seen at bedside with Dr Shine this morning Stable. S/P Wound debridement Yesterday by Podiatry. She states pain is controlled. Denies vomiting, nausea, abd pain, CP, SOB. Afebrile. C/O Constipation and no BM for 2 days. Objective - Vital Signs/Intake and Output Vital Signs (last 24 hours): Temp Pulse Resp BP Pulse Ox 98.9 F 97 H 18 106/69 97 02/06/18 05:07 02/06/18 05:07 02/06/18 05:07 02/06/18 05:07 02/06/18 05:07 - Medications Medications: Current Medications Acetaminophen (Tylenol 325mg Tab) 650 mg PO Q4 PRN PRN Reason: Pain, Mild (1-3) Last Admin: 02/06/18 05:02 Dose: 650 mg Bisacodyl (Dulcolax) 5 mg PO DAILY PRN PRN Reason: Constipation Cadexomer Iodine (Iodosorb 0.9%) 1 applic TOP QOTHERDAY [facility] Last Admin: 02/03/18 11:58 Dose: 1 applic Enoxaparin Sodium (Lovenox) 110 mg SC DAILY@1700 [facility] PRN Reason: Protocol Last Admin: 02/05/18 17:03 Dose: 110 mg Hydrochlorothiazide (Microzide) 12.5 mg PO DAILY [facility] Last Admin: 02/05/18 13:40 Dose: Not Given Hydromorphone HCl (Dilaudid) 1 mg IVP Q6 PRN PRN Reason: Pain, severe (8-10) Last Admin: 02/06/18 06:25 Dose: 1 mg Piperacillin Sod/Tazobactam (Sod 3.375 gm/ Sodium Chloride) 100 mls @ 100 mls/ hr IVPB Q8 [facility] PRN Reason: Protocol Last Admin: 02/06/18 00:11 Dose: 100 mls/hr Insulin Human Regular (Humulin R) 0 units SC ACCU-CHECK [facility] PRN Reason: Protocol Last Admin: 02/06/18 06:59 Dose: Not Given Lactulose (Enulose) 10 gm PO DAILY PRN PRN Reason: Constipation Levothyroxine Sodium (Synthroid) 25 mcg PO DAILY@0630 [facility] Last Admin: 02/06/18 06:19 Dose: 25 mcg Lidocaine (Lidoderm) 1 ea TD DAILY [facility] Last Admin: 02/05/18 13:45 Dose: 1 ea Lidocaine HCl (Xylocaine 2%) 1 applic TOP DAILY [facility] Last Admin: 02/03/18 11:57 Dose: 1 applic Multivitamins/Minerals (Therapeutic-M Tab) 1 tab PO HS [facility] Last Admin: 02/05/18 21:37 Dose: 1 tab Ondansetron HCl (Zofran Inj) 4 mg IVP Q6 PRN PRN Reason: Nausea/Vomiting Last Admin: 02/03/18 11:57 Dose: 4 mg Pantoprazole Sodium (Protonix Ec Tab) 40 mg PO DAILY [facility] Last Admin: 02/05/18 09:51 Dose: 40 mg Repaglinide (Prandin) 2 mg PO TID [facility] Last Admin: 02/05/18 17:04 Dose: 2 mg Senna/Docusate Sodium (Senokot S 50 Mg-8.6 Mg) 2 tab PO HS [facility] Valsartan (Diovan) 160 mg PO DAILY [facility] Last Admin: 02/05/18 09:54 Dose: Not Given Zolpidem Tartrate (Ambien) 5 mg PO HS PRN PRN Reason: Insomnia Last Admin: 02/05/18 23:37 Dose: 5 mg - Labs Labs: 02/06/18 05:12 02/06/18 05:12 PT 11.0 Seconds (9.8-13.1) 02/01/18 17:32 INR 1.0 (0.9-1.2) 02/01/18 17:32 APTT 32.3 Seconds (25.6-37.1) 02/01/18 17:32 - Constitutional Appears: Non-toxic, No Acute Distress, Other (Obese) - Eye Exam Eye Exam: PERRL - ENT Exam ENT Exam: Mucous Membranes Moist - Respiratory Exam Respiratory Exam: Clear to Ausculation Bilateral, NORMAL BREATHING PATTERN. absent: Respiratory Distress - Cardiovascular Exam Cardiovascular Exam: REGULAR RHYTHM, +S1, +S2. absent: Gallop - GI/Abdominal Exam GI & Abdominal Exam: Soft, Normal Bowel Sounds. absent: Distended, Tenderness, Rebound - Extremities Exam Extremities Exam: Calf Tenderness (Mild, left). absent: Normal Inspection Additional comments: Left ankle covered in sx dressing. Seems clean and dry. - Neurological Exam Neurological Exam: Alert, Awake, Oriented x3 - Psychiatric Exam Psychiatric exam: Normal Affect, Normal Mood - Skin Skin Exam: Normal Color, Warm Assessment and Plan - Assessment and Plan (Free Text) Assessment: DVT, chronic nonhealing LE ulceration with abscess and equivocal MRI for OM C/W IV abx as per ID s/P Debridement/I&D Yesterday Stable Might need nursing home course of IV abx C/W Lovenox therapeutic for DVT US LE reports poss occlusion of inferior aorta/iliac arterie. F/U CT angio <Shine,Steve K - Last Filed: 02/08/18 11:02> Objective - Vital Signs/Intake and Output Vital Signs (last 24 hours): Temp Pulse Resp BP Pulse Ox 99 F 92 H 18 109/73 97 02/07/18 23:56 02/07/18 23:56 02/07/18 23:56 02/07/18 23:56 02/07/18 23:56 - Labs Labs: 02/07/18 06:15 02/07/18 06:15 PT 11.0 Seconds (9.8-13.1) 02/01/18 17:32 INR 1.0 (0.9-1.2) 02/01/18 17:32 APTT 32.3 Seconds (25.6-37.1) 02/01/18 17:32 Assessment and Plan - Assessment and Plan (Free Text) Assessment: Patient was personally seen and examined by me in rounds with residents. Available labs and diagnostic data reviewed. Case, patient's conditions and management plan discussed with residents in rounds. Agree with resident's progress note. Plan: As ordered.
[2018-02-06] MEDS: Pantoprazole 40 mg EC Tab PO SCH (08:52)
[2018-02-06] MEDS: Lidocaine 5% Patch TD SCH (08:53)
--- NOTE | 2018-02-06 11:53 | OP ---
PROCEDURE DATE: 02/05/2018 This is an operative report dictated by Dr. Lavonne Pichardo on behalf of Dr. Mustapha Estevez. PREOPERATIVE DIAGNOSIS: Left foot wound with abscess. POSTOPERATIVE DIAGNOSIS: Left foot wound with abscess. NAME OF THE PROCEDURE: Incision and drainage of the left foot wound with removal of all nonviable soft tissue. SURGEON: Mustapha Estevez DPM GUN REPAIR CLERK: Lavonne Pichardo DPM, PGY-1. ANESTHESIOLOGIST: Jerman Peace MD TYPE OF ANESTHESIA: Regional block with MAC. INDICATIONS: The patient is a 48-year-old female with the above diagnosis. The patient has exhausted all conservative treatment at this time and now requires surgical intervention. The patient signed the consent after careful explanation of risks, benefits, complications and alternatives for the surgical procedure. No guarantees were given nor implied. N.p.o. status was confirmed prior to taking the patient to the OR. PREPARATION: The patient was brought into the operating table and placed on the operating room table in the supine position. The time-out was performed for identification of the correct patient and the procedure. Once the anesthesia was achieved. The left foot wound was then prepped and draped in normal sterile manner and the procedure began. DESCRIPTION OF PROCEDURE: Attention was directed towards the left medial aspect of the foot, superior to the tarsal tunnel area where an open wound was observed. A 9 mL of 0.5% Marcaine plain was injected to block the saphenous nerve as well as surrounding the wound itself. After care being taken and identifying all neurovascular structures, a number 15 blade was used to remove all superficial fibrotic nonviable soft tissue. At this time, using a small hemostat, a small pocket was created in the sinus tract areas. Approximately 4 mL to 5 mL of purulent drainage was expressed from the site. The wound cultures and soft tissue sample was taken at this time and it was sent to the Pathology. The site was then debrided using Misonix instrument to remove all the remaining nonviable and fibrotic soft tissue. At this time, pulse lavage was utilized to flush the surgical site with bacitracin infused saline. The wound was then packed with 1-inch iodoform packing, two superficial retention sutures were placed on the proximal and distal margin of the wound. The wound was then dressed with Betadine-soaked, gauze 4 x 4, DSD, and ROBIN. POSTOPERATIVE CONDITION: The patient tolerated the anesthesia and the procedure well and was escorted to the recovery room with vital signs stable and neurovascular status intact to the left foot. The patient will return to the floor where the patient will be followed up daily. Lavonne Pichardo DPM Mustapha Estevez DPM ROBERTO
--- NOTE | 2018-02-06 12:07 | CP.PCM.PN ---
Subjective - Date & Time of Evaluation Date of Evaluation: 02/06/18 Time of Evaluation: 08:00 - Subjective Subjective: s/p debridement of abscess MRI equivocal for OM would consider empiric rx await OR cultures Objective - Vital Signs/Intake and Output Vital Signs (last 24 hours): Temp Pulse Resp BP Pulse Ox 98.9 F 102 H 20 106/72 93 L 02/06/18 08:00 02/06/18 08:00 02/06/18 08:00 02/06/18 08:00 02/06/18 08:00 - Medications Medications: Current Medications Acetaminophen (Tylenol 325mg Tab) 650 mg PO Q4 PRN PRN Reason: Pain, Mild (1-3) Last Admin: 02/06/18 05:02 Dose: 650 mg Bisacodyl (Dulcolax) 5 mg PO DAILY PRN PRN Reason: Constipation Cadexomer Iodine (Iodosorb 0.9%) 1 applic TOP QOTHERDAY [facility] Last Admin: 02/03/18 11:58 Dose: 1 applic Enoxaparin Sodium (Lovenox) 110 mg SC DAILY@1700 [facility] PRN Reason: Protocol Last Admin: 02/05/18 17:03 Dose: 110 mg Hydrochlorothiazide (Microzide) 12.5 mg PO DAILY [facility] Last Admin: 02/06/18 08:53 Dose: 12.5 mg Hydromorphone HCl (Dilaudid) 1 mg IVP Q6 PRN PRN Reason: Pain, severe (8-10) Last Admin: 02/06/18 06:25 Dose: 1 mg Piperacillin Sod/Tazobactam (Sod 3.375 gm/ Sodium Chloride) 100 mls @ 100 mls/ hr IVPB Q8 [facility] PRN Reason: Protocol Last Admin: 02/06/18 08:55 Dose: 100 mls/hr Insulin Human Regular (Humulin R) 0 units SC ACCU-CHECK [facility] PRN Reason: Protocol Last Admin: 02/06/18 06:59 Dose: Not Given Lactulose (Enulose) 10 gm PO DAILY PRN PRN Reason: Constipation Last Admin: 02/06/18 09:01 Dose: 10 gm Levothyroxine Sodium (Synthroid) 25 mcg PO DAILY@0630 [facility] Last Admin: 02/06/18 06:19 Dose: 25 mcg Lidocaine (Lidoderm) 1 ea TD DAILY [facility] Last Admin: 02/06/18 08:53 Dose: 1 ea Lidocaine HCl (Xylocaine 2%) 1 applic TOP DAILY [facility] Last Admin: 02/03/18 11:57 Dose: 1 applic Multivitamins/Minerals (Therapeutic-M Tab) 1 tab PO HS [facility] Last Admin: 02/05/18 21:37 Dose: 1 tab Ondansetron HCl (Zofran Inj) 4 mg IVP Q6 PRN PRN Reason: Nausea/Vomiting Last Admin: 02/03/18 11:57 Dose: 4 mg Pantoprazole Sodium (Protonix Ec Tab) 40 mg PO DAILY [facility] Last Admin: 02/06/18 08:52 Dose: 40 mg Repaglinide (Prandin) 2 mg PO TID [facility] Last Admin: 02/06/18 08:54 Dose: Not Given Senna/Docusate Sodium (Senokot S 50 Mg-8.6 Mg) 2 tab PO HS [facility] Valsartan (Diovan) 160 mg PO DAILY [facility] Last Admin: 02/06/18 08:52 Dose: 160 mg Zolpidem Tartrate (Ambien) 5 mg PO HS PRN PRN Reason: Insomnia Last Admin: 02/05/18 23:37 Dose: 5 mg - Labs Labs: 02/06/18 05:12 02/06/18 05:12 PT 11.0 Seconds (9.8-13.1) 02/01/18 17:32 INR 1.0 (0.9-1.2) 02/01/18 17:32 APTT 32.3 Seconds (25.6-37.1) 02/01/18 17:32 Assessment and Plan (1) Deep vein thrombosis Status: Acute (2) Surgical wound infection Status: Acute (3) Diabetes mellitus type 2, diet-controlled Status: Acute (4) Plantar fasciitis Status: Acute
[2018-02-06] MEDS ORDERED: Iodixanol 320 MG/ML 100 ML BOTTLE IV ONE (14:01)
[2018-02-06] MEDS ORDERED: Sodium Chloride 0.9% 100 ML ONE (14:02)
--- NOTE | 2018-02-06 15:49 | CT ---
PROCEDURE: CT Angiography Abdomen, Pelvis and Lower Extremity with Contrast HISTORY: LLE PAD,stenosis COMPARISON: None. TECHNIQUE: Technique: CT angiography of the abdomen, pelvis and bilateral lower extremities performed in the arterial phase of enhancement. Coronal and sagittal reformats, and well as rotating MIP images of the vessels generated at the workstation. Intravenous contrast dose: Radiation dose: Total exam DLP = mGy-cm. This CT exam was performed using one or more of the following dose reduction techniques: Automated exposure control, adjustment of the mA and/or kV according to patient size, and/or use of iterative reconstruction technique. FINDINGS: CT ANGIOGRAPHY: ABDOMINAL AORTA:: No significant atherosclerotic disease. No stenosis or aneurysm. MAJOR AORTIC BRANCHES: Celiac [place]: Unremarkable. Superior mesenteric artery: Unremarkable. Inferior mesenteric artery: Unremarkable. Renal arteries: Unremarkable. PELVIC ARTERIES: Right Common Iliac: Unremarkable. Right External Iliac: Unremarkable. Right Internal Iliac: Unremarkable. Left Common Iliac: Unremarkable. Left External Iliac: Unremarkable. Left Internal Iliac: Unremarkable. RIGHT LOWER EXTREMITY ARTERIES: Right Common Femoral: Unremarkable. Right Superficial Femoral: Severe short segment stenosis at the femoral-popliteal junction. Scattered focal mild stenoses in the proximal/mid portions. Right Profunda Femoris: Unremarkable. Right Popliteal:Mild tandem stenoses. Right Anterior Tibial: Unremarkable. Right Tibioperoneal Trunk: Unremarkable. Right Posterior Tibial: Unremarkable. Right Peroneal: Unremarkable. Right dorsalis pedis : Unremarkable. LEFT LOWER EXTREMITY ARTERIES: Left Common Femoral: Unremarkable. Left Superficial Femoral: Scattered focal/short segment mild to moderate stenoses in the proximal/ mid portions. Tandem focal/ short segment severe stenoses in the distal portion. Left Profunda Femoris: Unremarkable. Left Popliteal: Mild tandem stenoses. Left Anterior Tibial: Unremarkable. Left Tibioperoneal Trunk: Unremarkable. Left Posterior Tibial: Unremarkable. Left Peronea: Unremarkable. Left Dorsalis pedis: Unremarkable. NON-ANGIOGRAPHIC ASPECT OF THE EXAM: LOWER THORAX: Unremarkable. LIVER: Unremarkable. No gross lesion or ductal dilatation. GALLBLADDER AND BILE DUCTS: Prior cholecystectomy with surgical clips in place. PANCREAS: Unremarkable. No gross lesion or ductal dilatation. SPLEEN: Unremarkable. ADRENALS: Unremarkable. No mass. KIDNEYS AND URETERS: Unremarkable. No hydronephrosis. No solid mass. STOMACH AND BOWEL: Unremarkable. No obstruction. No gross mural thickening. APPENDIX: Normal appendix. PERITONEUM: Unremarkable. No free fluid. No free air. LYMPH NODES: Unremarkable. No enlarged lymph nodes. BLADDER: Unremarkable. REPRODUCTIVE: Unremarkable. BONES: Degenerative changes. No acute fracture. OTHER FINDINGS: Status post incision and drainage with wound packing along the left medial ankle. IMPRESSION: Right lower extremity: Scattered focal mild stenoses in the proximal/mid superficial femoral and popliteal arteries with severe short segment stenosis at the femoral-popliteal junction. Widely patent 3 vessel runoff to the foot. Left lower extremity: Scattered old focal/ short segment mild to moderate stenoses in the proximal/ mid superficial femoral artery, mild stenoses in the left popliteal artery and tandem focal/ short segment severe stenoses in the distal superficial femoral artery. Widely patent 3 vessel runoff to the foot. Status post incision and drainage of the left medial ankle with wound packing. Additional findings as above.
[2018-02-06] MEDS: Enoxaparin 120 mg Syringe SC SCH (17:03)
[2018-02-06] MEDS: Multivitamin With Minerals Tab PO SCH (22:15)
[2018-02-06] MEDS: Docusate-Senna 50 mg-8.6 mg Tab PO SCH (22:23)
[2018-02-07] MEDS: Piperacillin/Tazobact 3.375 GM in Sodium Chloride 0.9% 100 ML IVPB SCH ×3 (00:31→17:41)
[2018-02-07 06:34] LABS: HEMOGLOBIN 11.3 g/dL (12.0-16.0); MEAN CORPUSCULAR HEMOGLOBIN 29.7 pg (27.0-31.0); MEAN CORPUSCULAR HGB CONC 34.5 g/dL (33.0-37.0); RBC 3.82 Mil/uL (3.80-5.20); RED CELL DISTRIBUTION WIDTH 13.5 % (11.5-14.5); WHITE BLOOD COUNT 6.7 K/uL (4.8-10.8)
[2018-02-07 06:45] LABS: BLOOD UREA NITROGEN 11 mg/dl (7-17); GFR AFRICAN-AMERICAN > 60; GFR NON-AFRICAN AMERICAN > 60
[2018-02-07] MEDS: Levothyroxine 25 MCG TAB PO SCH (07:15)
--- NOTE | 2018-02-07 07:35 | CP.PCM.PN ---
Subjective - Date & Time of Evaluation Date of Evaluation: 02/07/18 Time of Evaluation: 07:35 - Subjective Subjective: Podiatry Progress Note - Dr. Estevez 48 year old female patient PMHx HTN, DM, hypercholesterolemia seen and evaluated at bedside for infected surgical wound left ankle, POD#2 L foot I&D. Patient resting in bed comfortably, NAD. No acute events overnight. Patient reports mild pain to her left ankle, still improved from initial presentation. States she had PICC placed earlier today. Offers no other complaints. Denies N/V /F/D/C/SOB. Objective - Vital Signs/Intake and Output Vital Signs (last 24 hours): Temp Pulse Resp BP Pulse Ox 98.7 F 98 H 18 99/65 L 93 L 02/07/18 05:00 02/07/18 05:00 02/07/18 05:00 02/07/18 05:00 02/07/18 05:00 - Medications Medications: Current Medications Acetaminophen (Tylenol 325mg Tab) 650 mg PO Q4 PRN PRN Reason: Pain, Mild (1-3) Last Admin: 02/06/18 05:02 Dose: 650 mg Bisacodyl (Dulcolax) 5 mg PO DAILY PRN PRN Reason: Constipation Cadexomer Iodine (Iodosorb 0.9%) 1 applic TOP QOTHERDAY [facility] Last Admin: 02/03/18 11:58 Dose: 1 applic Enoxaparin Sodium (Lovenox) 110 mg SC DAILY@1700 [facility] PRN Reason: Protocol Last Admin: 02/06/18 17:03 Dose: 110 mg Hydrochlorothiazide (Microzide) 12.5 mg PO DAILY [facility] Last Admin: 02/06/18 08:53 Dose: 12.5 mg Hydromorphone HCl (Dilaudid) 1 mg IVP Q6 PRN PRN Reason: Pain, severe (8-10) Last Admin: 02/07/18 03:38 Dose: 1 mg Piperacillin Sod/Tazobactam (Sod 3.375 gm/ Sodium Chloride) 100 mls @ 100 mls/ hr IVPB Q8 [facility] PRN Reason: Protocol Last Admin: 02/07/18 00:31 Dose: 100 mls/hr Insulin Human Regular (Humulin R) 0 units SC ACCU-CHECK [facility] PRN Reason: Protocol Last Admin: 02/06/18 22:24 Dose: Not Given Lactulose (Enulose) 10 gm PO DAILY PRN PRN Reason: Constipation Last Admin: 02/06/18 09:01 Dose: 10 gm Levothyroxine Sodium (Synthroid) 25 mcg PO DAILY@0630 [facility] Last Admin: 02/07/18 07:15 Dose: 25 mcg Lidocaine (Lidoderm) 1 ea TD DAILY [facility] Last Admin: 02/06/18 08:53 Dose: 1 ea Lidocaine HCl (Xylocaine 2%) 1 applic TOP DAILY [facility] Last Admin: 02/03/18 11:57 Dose: 1 applic Multivitamins/Minerals (Therapeutic-M Tab) 1 tab PO HS [facility] Last Admin: 02/06/18 22:15 Dose: 1 tab Ondansetron HCl (Zofran Inj) 4 mg IVP Q6 PRN PRN Reason: Nausea/Vomiting Last Admin: 02/03/18 11:57 Dose: 4 mg Pantoprazole Sodium (Protonix Ec Tab) 40 mg PO DAILY [facility] Last Admin: 02/06/18 08:52 Dose: 40 mg Repaglinide (Prandin) 2 mg PO TID [facility] Last Admin: 02/06/18 17:03 Dose: 2 mg Senna/Docusate Sodium (Senokot S 50 Mg-8.6 Mg) 2 tab PO HS [facility] Last Admin: 02/06/18 22:23 Dose: 2 tab Valsartan (Diovan) 160 mg PO DAILY [facility] Last Admin: 02/06/18 08:52 Dose: 160 mg Zolpidem Tartrate (Ambien) 5 mg PO HS PRN PRN Reason: Insomnia Last Admin: 02/06/18 23:45 Dose: 5 mg - Labs Labs: 02/07/18 06:15 02/07/18 06:15 PT 11.0 Seconds (9.8-13.1) 02/01/18 17:32 INR 1.0 (0.9-1.2) 02/01/18 17:32 APTT 32.3 Seconds (25.6-37.1) 02/01/18 17:32 - Constitutional Appears: Well, Non-toxic, No Acute Distress - Extremities Exam Additional comments: Dressing to LLE clean/dry/intact with no strikethrough noted - Neurological Exam Neurological Exam: Alert, Awake, Oriented x3 - Psychiatric Exam Psychiatric exam: Normal Affect, Normal Mood Assessment and Plan - Assessment and Plan (Free Text) Assessment: 48 year old female with 1) infected surgical wound left ankle, improving 2) LLE DVT within superficial femoral and popliteal veins POD#2 Incision and drainage of left foot wound with removal of all non-viable soft tissue Plan: Patient seen and evaluated Discussed with attending, Dr. Estevez Labs and vitals reviewed - afebrile, WBC 6.7 -ESR 88, decreasing LLE venous duplex (02/01/18): DVT within superficial femoral and popliteal veins Chest CT ordered r/o PE (02/01/18): Limited study due to suboptimal opacification and large body habitus demonstrating no acute central pulmonary embolus; no acute consolidation, mild atelectasis both posterior lower lung zones LLE MRI (02/03/18): Possible abscess collection medial aspect of mid/posterior calcaneus measuring 1.1 x 0.7 x 2.0cm, extends into posterior tarsal tunnel. LLE arterial duplex (02/04/18): awaiting report Therapeutic Lovenox 110mc SC QD; DVT management per primary team Left ankle WCx - staphylococcus aureus F/u intra-op specimens -Deep wound culture: (prelim) no growth -Soft tissue path: Adipose tissue with foci of necrosis, acute inflammation and granulation tissue reaction ID consulted - continue Zosyn 3.375g IV -Patient will require 6 weeks of Zosyn IV for LLE cellulitis, wound cx + MSSA per Dr. Hernandez Continue local wound care - Iodosorb + Lidocaine jelly, DSD Pain management - Lidoderm TD, Percocet 1 tab PO breakthrough, Dilaudid 1mg IV, Tylenol 650mg PO Stable for discharge to TCU Plan for graft application + delayed wound closure next week Saturday Podiatry will continue to follow while in house
[2018-02-07] MEDS: Lidocaine 5% Patch TD SCH (09:18)
[2018-02-07] MEDS: Pantoprazole 40 mg EC Tab PO SCH (09:19)
--- NOTE | 2018-02-07 09:21 | CP.PCM.PN ---
<Randal Soto - Last Filed: 02/07/18 10:25> Subjective - Date & Time of Evaluation Date of Evaluation: 02/07/18 Time of Evaluation: 08:30 - Subjective Subjective: Evaluated with Dr Shine during morning rounds. Stable. Feels better. Afebrile, pain controlled with meds. No acute changes in urination or stools. Objective - Vital Signs/Intake and Output Vital Signs (last 24 hours): Temp Pulse Resp BP Pulse Ox 98.0 F 89 20 102/69 95 02/07/18 08:17 02/07/18 08:17 02/07/18 08:17 02/07/18 08:17 02/07/18 08:17 - Medications Medications: Current Medications Acetaminophen (Tylenol 325mg Tab) 650 mg PO Q4 PRN PRN Reason: Pain, Mild (1-3) Last Admin: 02/06/18 05:02 Dose: 650 mg Bisacodyl (Dulcolax) 5 mg PO DAILY PRN PRN Reason: Constipation Cadexomer Iodine (Iodosorb 0.9%) 1 applic TOP QOTHERDAY [facility] Last Admin: 02/03/18 11:58 Dose: 1 applic Enoxaparin Sodium (Lovenox) 110 mg SC DAILY@1700 [facility] PRN Reason: Protocol Last Admin: 02/06/18 17:03 Dose: 110 mg Hydrochlorothiazide (Microzide) 12.5 mg PO DAILY [facility] Last Admin: 02/06/18 08:53 Dose: 12.5 mg Hydromorphone HCl (Dilaudid) 1 mg IVP Q6 PRN PRN Reason: Pain, severe (8-10) Last Admin: 02/07/18 03:38 Dose: 1 mg Piperacillin Sod/Tazobactam (Sod 3.375 gm/ Sodium Chloride) 100 mls @ 100 mls/ hr IVPB Q8 [facility] PRN Reason: Protocol Last Admin: 02/07/18 00:31 Dose: 100 mls/hr Insulin Human Regular (Humulin R) 0 units SC ACCU-CHECK [facility] PRN Reason: Protocol Last Admin: 02/06/18 22:24 Dose: Not Given Lactulose (Enulose) 10 gm PO DAILY PRN PRN Reason: Constipation Last Admin: 02/06/18 09:01 Dose: 10 gm Levothyroxine Sodium (Synthroid) 25 mcg PO DAILY@0630 [facility] Last Admin: 02/07/18 07:15 Dose: 25 mcg Lidocaine (Lidoderm) 1 ea TD DAILY [facility] Last Admin: 02/06/18 08:53 Dose: 1 ea Lidocaine HCl (Xylocaine 2%) 1 applic TOP DAILY [facility] Last Admin: 02/03/18 11:57 Dose: 1 applic Multivitamins/Minerals (Therapeutic-M Tab) 1 tab PO HS [facility] Last Admin: 02/06/18 22:15 Dose: 1 tab Ondansetron HCl (Zofran Inj) 4 mg IVP Q6 PRN PRN Reason: Nausea/Vomiting Last Admin: 02/03/18 11:57 Dose: 4 mg Pantoprazole Sodium (Protonix Ec Tab) 40 mg PO DAILY [facility] Last Admin: 02/06/18 08:52 Dose: 40 mg Repaglinide (Prandin) 2 mg PO TID [facility] Last Admin: 02/06/18 17:03 Dose: 2 mg Senna/Docusate Sodium (Senokot S 50 Mg-8.6 Mg) 2 tab PO HS [facility] Last Admin: 02/06/18 22:23 Dose: 2 tab Valsartan (Diovan) 160 mg PO DAILY [facility] Last Admin: 02/06/18 08:52 Dose: 160 mg Zolpidem Tartrate (Ambien) 5 mg PO HS PRN PRN Reason: Insomnia Last Admin: 02/06/18 23:45 Dose: 5 mg - Labs Labs: 02/07/18 06:15 02/07/18 06:15 PT 11.0 Seconds (9.8-13.1) 02/01/18 17:32 INR 1.0 (0.9-1.2) 02/01/18 17:32 APTT 32.3 Seconds (25.6-37.1) 02/01/18 17:32 - Constitutional Appears: Non-toxic, No Acute Distress - Eye Exam Eye Exam: EOMI, PERRL - ENT Exam ENT Exam: Mucous Membranes Moist - Respiratory Exam Respiratory Exam: Clear to Ausculation Bilateral, NORMAL BREATHING PATTERN. absent: Decreased Breath Sounds, Rales - Cardiovascular Exam Cardiovascular Exam: REGULAR RHYTHM, +S1, +S2. absent: Gallop - GI/Abdominal Exam GI & Abdominal Exam: Soft, Normal Bowel Sounds. absent: Distended, Rigid, Tenderness, Rebound - Extremities Exam Extremities Exam: Tenderness (Mild left leg). absent: Normal Inspection ( Dressing in place clean and dry) - Neurological Exam Neurological Exam: Alert, Awake, Oriented x3 - Psychiatric Exam Psychiatric exam: Normal Affect, Normal Mood - Skin Skin Exam: Warm Assessment and Plan - Assessment and Plan (Free Text) Assessment: LE angiography reports unremarkable Iliac and inferior aorta which differ from previous LE US findings. See full report C/W IV abx and length of treatment pending as per ID C/W Pain control Podiatry consult appreciated: Planned Sx wound closure to f/u <Shine,Steve K - Last Filed: 02/08/18 11:03> Objective - Vital Signs/Intake and Output Vital Signs (last 24 hours): Temp Pulse Resp BP Pulse Ox 99 F 92 H 18 109/73 97 02/07/18 23:56 02/07/18 23:56 02/07/18 23:56 02/07/18 23:56 02/07/18 23:56 - Labs Labs: 02/07/18 06:15 02/07/18 06:15 PT 11.0 Seconds (9.8-13.1) 02/01/18 17:32 INR 1.0 (0.9-1.2) 02/01/18 17:32 APTT 32.3 Seconds (25.6-37.1) 02/01/18 17:32 Assessment and Plan - Assessment and Plan (Free Text) Assessment: Patient was personally seen and examined by me in rounds with residents. Available labs and diagnostic data reviewed. Case, patient's conditions and management plan discussed with residents in rounds. Agree with resident's progress note. Plan: As ordered.
[2018-02-07] MEDS: Lidocaine 2% GEL TOP SCH (09:24)
[2018-02-07] MEDS: Insulin Regular 100 units/ml SC SCH ×4 (09:25→23:13)
--- NOTE | 2018-02-07 10:56 | CP.PCM.PCO ---
Assessment & Plan - Assessment and Plan (Free Text) Assessment: As per , patient will require delayed wound closure of LLE next Saturday ( spoke with podiatry resident ) patient will require 6 weeks of Zosyn IV for LLE cellulitis, wound cx + MSSA as per PICC line ordered
[2018-02-07] MEDS ORDERED: Lidocaine 1% Inj (20ml) ONE (12:30)
--- NOTE | 2018-02-07 13:06 | CP.PCM.PN ---
Subjective - Date & Time of Evaluation Date of Evaluation: 02/07/18 Time of Evaluation: 08:00 - Subjective Subjective: improving slowly cont iv rx for 6 weeks for om Objective - Vital Signs/Intake and Output Vital Signs (last 24 hours): Temp Pulse Resp BP Pulse Ox 97.0 F L 91 H 18 106/74 98 02/07/18 12:59 02/07/18 12:59 02/07/18 12:59 02/07/18 12:59 02/07/18 12:59 - Medications Medications: Current Medications Acetaminophen (Tylenol 325mg Tab) 650 mg PO Q4 PRN PRN Reason: Pain, Mild (1-3) Last Admin: 02/06/18 05:02 Dose: 650 mg Bisacodyl (Dulcolax) 5 mg PO DAILY PRN PRN Reason: Constipation Cadexomer Iodine (Iodosorb 0.9%) 1 applic TOP QOTHERDAY [facility] Last Admin: 02/03/18 11:58 Dose: 1 applic Enoxaparin Sodium (Lovenox) 110 mg SC DAILY@1700 [facility] PRN Reason: Protocol Last Admin: 02/06/18 17:03 Dose: 110 mg Hydrochlorothiazide (Microzide) 12.5 mg PO DAILY [facility] Last Admin: 02/07/18 09:18 Dose: 12.5 mg Hydromorphone HCl (Dilaudid) 1 mg IVP Q6 PRN PRN Reason: Pain, severe (8-10) Last Admin: 02/07/18 03:38 Dose: 1 mg Piperacillin Sod/Tazobactam (Sod 3.375 gm/ Sodium Chloride) 100 mls @ 100 mls/ hr IVPB Q8 [facility] PRN Reason: Protocol Last Admin: 02/07/18 09:20 Dose: 100 mls/hr Insulin Human Regular (Humulin R) 0 units SC ACCU-CHECK [facility] PRN Reason: Protocol Last Admin: 02/07/18 09:25 Dose: Not Given Lactulose (Enulose) 10 gm PO DAILY PRN PRN Reason: Constipation Last Admin: 02/06/18 09:01 Dose: 10 gm Levothyroxine Sodium (Synthroid) 25 mcg PO DAILY@0630 [facility] Last Admin: 02/07/18 07:15 Dose: 25 mcg Lidocaine (Lidoderm) 1 ea TD DAILY [facility] Last Admin: 02/07/18 09:18 Dose: 1 ea Lidocaine HCl (Xylocaine 2%) 1 applic TOP DAILY [facility] Last Admin: 02/07/18 09:24 Dose: Not Given Multivitamins/Minerals (Therapeutic-M Tab) 1 tab PO HS [facility] Last Admin: 02/06/18 22:15 Dose: 1 tab Ondansetron HCl (Zofran Inj) 4 mg IVP Q6 PRN PRN Reason: Nausea/Vomiting Last Admin: 02/03/18 11:57 Dose: 4 mg Pantoprazole Sodium (Protonix Ec Tab) 40 mg PO DAILY [facility] Last Admin: 02/07/18 09:19 Dose: 40 mg Repaglinide (Prandin) 2 mg PO TID [facility] Last Admin: 02/07/18 09:19 Dose: 2 mg Senna/Docusate Sodium (Senokot S 50 Mg-8.6 Mg) 2 tab PO HS [facility] Last Admin: 02/06/18 22:23 Dose: 2 tab Valsartan (Diovan) 160 mg PO DAILY [facility] Last Admin: 02/07/18 09:17 Dose: 160 mg Zolpidem Tartrate (Ambien) 5 mg PO HS PRN PRN Reason: Insomnia Last Admin: 02/06/18 23:45 Dose: 5 mg - Labs Labs: 02/07/18 06:15 02/07/18 06:15 PT 11.0 Seconds (9.8-13.1) 02/01/18 17:32 INR 1.0 (0.9-1.2) 02/01/18 17:32 APTT 32.3 Seconds (25.6-37.1) 02/01/18 17:32 - Constitutional Appears: Non-toxic, Chronically Ill - Head Exam Head Exam: NORMOCEPHALIC - Eye Exam Eye Exam: PERRL - ENT Exam ENT Exam: Mucous Membranes Dry - Neck Exam Neck Exam: absent: Lymphadenopathy - Respiratory Exam Respiratory Exam: Decreased Breath Sounds - Cardiovascular Exam Cardiovascular Exam: REGULAR RHYTHM - GI/Abdominal Exam GI & Abdominal Exam: Distended - Exam Exam: NORMAL INSPECTION Assessment and Plan (1) Deep vein thrombosis Status: Acute (2) Surgical wound infection Status: Acute (3) Diabetes mellitus type 2, diet-controlled Status: Acute (4) Plantar fasciitis Status: Acute - Assessment and Plan (Free Text) Assessment: iv rx renewed
--- NOTE | 2018-02-07 13:23 | PCM.SURG1 ---
Surgeon's Initial Post Op Note - Surgeon's Notes Surgeon: Geoffrey Catherine MD Review Assistant: None Type of Anesthesia: Local Pre-Operative Diagnosis: infection Operative Findings: patent right basilic vein. catheter length: 39 cm. catheter tip: cavoatrial junction Post-Operative Diagnosis: same Operation Performed: RUE PICC Insertion Specimen/Specimens Removed: n/a Estimated Blood Loss: EBL {In ML}: 0 Date of Surgery/Procedure: 02/07/18 Time of Surgery/Procedure: 13:15
--- NOTE | 2018-02-07 14:43 | VASCULAR ---
PROCEDURE: PERIPHERALLY INSERTED CENTRAL VENOUS CATHETER INSERTION CLINICAL HISTORY: 48-year-old female requiring intermediate frame tender intravenous antibiotics is referred to Interventional Radiology for PICC insertion. COMPARISON: None. PROCEDURE: 1. Focused ultrasound of the right upper extremity vasculature. 2. Ultrasound-guided access. 3. Insertion of peripherally inserted central venous catheter. 4. Fluoroscopic localization of catheter tip. PRE-PROCEDURE FINDINGS: 1. Patent right basilic vein. POST-PROCEDURE FINDINGS: 1. Placement of 4 [place] single-lumen PICC. 2. Catheter length: 39 cm. 3. Catheter tip at cavoatrial junction. INTERVENTIONAL RADIOLOGIST: Geoffrey Catherine M.D. (the attending was present for the entire procedure) ANESTHESIA: None. MEDICATION: Lidocaine 1% for local subcutaneous analgesia. COMPLICATIONS: None. RADIATION DOSE: Fluoroscopy Time: Cumulative Dose: mGy PROCEDURE DESCRIPTION AND FINDINGS: The risks, benefits, alternatives and possible complications of the procedure were fully discussed; all questions were answered and informed consent was obtained. The patient was brought into the interventional suite and a pre-procedure 'time-out' was performed. The patient was placed on the fluoroscopy table in the supine position. The right upper extremity was prepped and draped in the usual sterile fashion. Maximum sterile barrier precautions were maintained throughout the entire procedure. Preliminary ultrasound images of the right upper extremity vasculature demonstrate patency of the right basilic vein. Following subcutaneous infiltration of 1% lidocaine for local analgesia, under ultrasound guidance, a 21-gauge needle was advanced into the right basilic vein with real-time visualization of needle entry. The ultrasound images were permanently recorded and submitted to the PACS. A 0.018 guidewire was advanced centrally to the cavoatrial junction. A 4.5 [place] peel-away sheath was advanced over the guidewire. After obtaining length measurement, a 4 [place] single-lumen PICC was placed with the tip of the catheter at the cavoatrial junction. The total length of the catheter is 39 cm. The hub of the PICC was secured to the skin using a sterile adhesive bandage. The patient tolerated the procedure well without immediate post-procedure complications and was transferred back to the floor in stable condition. IMPRESSION: SUCCESSFUL INSERTION OF RIGHT UPPER EXTREMITY PICC. PICC OK TO USE.
[2018-02-07] MEDS: Enoxaparin 120 mg Syringe SC SCH (17:38)
[2018-02-07] MEDS: CADEXOMER IODINE TOP SCH (18:31)
[2018-02-07] MEDS: Docusate-Senna 50 mg-8.6 mg Tab PO SCH (23:15)
[2018-02-07] MEDS: Multivitamin With Minerals Tab PO SCH (23:15)
[2018-02-07 23:57] VITALS: BP 109/73; PULSE 92; RESP 18; TEMP 99; O2SAT 97
== END 2018-02-08 01:45 | DRG 580 ==
LOC: H.ER 14:28 → H.ERHOLD 17:54 → H.TEL 20:32 → UNDODISIN 02-03 19:48 → H.TEL 02-04 15:44
PROVIDERS: ADMIT Internal Medicine; ATTEND Internal Medicine
PROC: 0J9R0ZX Drainage of Left Foot Subcutaneous Tissue and Fascia, Open Approach, Diagnostic (ICD-10-PCS; principal; 2018-02-05 10:30)
PROC: 3E0T3BZ Introduction of Anesthetic Agent into Peripheral Nerves and Plexi, Percutaneous Approach (ICD-10-PCS; 2018-02-05 10:30)
PROC: 02HV33Z Insertion of Infusion Device into Superior Vena Cava, Percutaneous Approach (ICD-10-PCS; 2018-02-07)
PROC: B518ZZA Fluoroscopy of Superior Vena Cava, Guidance (ICD-10-PCS; 2018-02-07)
PROC: B548ZZA Ultrasonography of Superior Vena Cava, Guidance (ICD-10-PCS; 2018-02-07)
DX: T81.4XXA Infection following a procedure, initial encounter (principal); I82.432 Acute embolism and thrombosis of left popliteal vein; T81.31XA Disruption of external operation (surgical) wound, not elsewhere classified, initial encounter; I82.412 Acute embolism and thrombosis of left femoral vein; L03.116 Cellulitis of left lower limb; E66.01 Morbid (severe) obesity due to excess calories; E11.9 Type 2 diabetes mellitus without complications; E78.00 Pure hypercholesterolemia, unspecified; I10 Essential (primary) hypertension; K21.9 Gastro-esophageal reflux disease without esophagitis; K59.00 Constipation, unspecified; M72.2 Plantar fascial fibromatosis; Z68.42 Body mass index [BMI] 45.0-49.9, adult; Z79.4 Long term (current) use of insulin; Z85.42 Personal history of malignant neoplasm of other parts of uterus; Z90.49 Acquired absence of other specified parts of digestive tract; K29.70 Gastritis, unspecified, without bleeding; M19.90 Unspecified osteoarthritis, unspecified site; R20.2 Paresthesia of skin; Z79.899 Other long term (current) drug therapy; R79.89 Other specified abnormal findings of blood chemistry; Y83.9 Surgical procedure, unspecified as the cause of abnormal reaction of the patient, or of later complication, without mention of misadventure at the time of the procedure; Y92.9 Unspecified place or not applicable

== ENCOUNTER 2018-02-08 02:02 | Inpatient (IN) | payer MEDICAID ==
[2018-02-08 02:11] VITALS: BMI 43.7
[2018-02-08] MEDS ORDERED: Lactulose 10 gm/15 ml Syrup PO PRN (03:16)
[2018-02-08] MEDS ORDERED: Bisacodyl 5mg EC Tab PO PRN (03:16)
[2018-02-08 03:59] VITALS: RESP 20
[2018-02-08] MEDS: Oxycodone/Acetaminophen 5/325 mg Tab PO PRN ×3 (04:32→19:33)
[2018-02-08] MEDS ORDERED: Piperacillin/Tazobact 3.375 GM in Sodium Chloride 0.9% 100 ML IVPB SCH (05:00)
[2018-02-08] MEDS: Levothyroxine 25 MCG TAB PO SCH (05:51)
[2018-02-08] MEDS ORDERED: Insulin Regular 100 units/ml SC SCH (07:00)
[2018-02-08] MEDS: Insulin Regular 100 units/ml SC SCH ×4 (07:08→21:11)
[2018-02-08] MEDS ORDERED: Patient's Own Med (Piperacill/Tazo 3.375gm In Dex [Zosyn 3.375 Gm Iv] 3.375 GM) IVPB SCH (09:00)
[2018-02-08] MEDS: Pantoprazole 40 mg EC Tab PO SCH (09:08)
[2018-02-08] MEDS: Lidocaine 5% Patch TD SCH (09:10)
--- NOTE | 2018-02-08 10:34 | HP ---
TRANSITIONAL CARE HISTORY AND PHYSICAL CHIEF COMPLAINT: For completion of treatment and rehab. HISTORY OF PRESENT ILLNESS: This is a 48-year-old female who was admitted to medical floor for nonhealing wound on left leg. The patient underwent I and D by Podiatry. The patient also was suspected to have osteomyelitis. The patient was transferred to Transitional Care Unit for optimization and completion of treatment and physical therapy. Currently, the patient complains for pain in foot, but it is adequately controlled with current pain medication. REVIEW OF SYSTEMS: No chest pain, shortness of breath, nausea, vomiting, diarrhea, constipation, or any new joint or extremity pain. Review of systems of all other organ systems is unremarkable except for pain in foot. PAST MEDICAL HISTORY: The patient has multiple medical problems including diabetes, hypertension, morbid obesity, and elevated cholesterol. PAST SURGICAL HISTORY: Remarkable for of the left foot. PERSONAL HISTORY: The patient is currently nonsmoker and nondrinker. No substance abuse. MEDICATIONS: The patient is on multiple medication, which is as per reconciliation sheet, which was reviewed and ordered. ALLERGIES: THE PATIENT IS NOT ALLERGIC TO ANY MEDICATION. FAMILY HISTORY: Noncontributory. PHYSICAL EXAMINATION: GENERAL: Morbidly obese 48-year-old female, in no acute distress. VITAL SIGNS: Temperature is afebrile, pulse is 58, respirations are 18, and blood pressure is 136/76. HEENT: Pupils are reactive to light. No JVD. No thyromegaly. No lymphadenopathy. No nystagmus. Normocephalic and atraumatic skull. HEART: S1 and S2, normal and regular. No significant murmur, gallop or rub is heard. LUNGS: Shows good bilateral air exchange. No rales or rhonchi. ABDOMEN: Soft and nontender. No organomegaly. No fluid. Bowel sounds are present and normal. EXTREMITIES: Left lower extremity is in podiatric dressing. No sign of distal neurovascular compromise. No edema. No calf swelling. No tenderness. No acute ischemia. CENTRAL NERVOUS SYSTEM: Exam is essentially unchanged. SKIN: Exam revealed the patient has generalized maculopapular rash consistent with allergic reaction. DIAGNOSTIC DATA: Available diagnostic data reviewed. ADMITTING IMPRESSION: Osteomyelitis nonhealing foot ulcer, foot abscess, maculopapular generalized rash, diabetes, hypertension, elevated cholesterol and morbid obesity. PLAN: As ordered. Telephone order to stop Zosyn and contact Dr. Hernandez, for alternate antibiotic treatment was given. Plan as ordered. Steve Shine MD
[2018-02-08] MEDS: Enoxaparin 120 mg Syringe SC SCH ×2 (10:58→21:11)
--- NOTE | 2018-02-08 11:03 | CP.PCM.CON ---
History of Present Illness - History of Present Illness History of Present Illness: Podiatry Progress Note - Dr. Estevez 48 year old female patient PMHx HTN, DM, hypercholesterolemia seen and evaluated at bedside for infected surgical wound left ankle, POD#3 L foot I&D. Patient resting in bed comfortably, NAD. No acute events overnight. Patient reports moderate pain to her left ankle, still improved from initial presentation. States she had PICC placed yesterday. Patient complaining of rash , itchiness to her lower abdomen from the IV antibiotics. Denies N/V/F/D/C/SOB. Review of Systems - Constitutional Constitutional: As Per HPI Past Patient History - Infectious Disease Hx of Infectious Diseases: None - Past Medical History & Family History Past Medical History?: Yes - Past Social History Smoking Status: Never Smoked - CARDIAC Hx Hypertension: Yes - PULMONARY Hx Asthma: No - NEUROLOGICAL Hx Neurological Disorder: Yes Other/Comment: TINGLING LEFT FOOT - HEENT Hx HEENT Problems: No - RENAL Hx Chronic Kidney Disease: No - ENDOCRINE/METABOLIC Hx Endocrine Disorders: Yes Hx Diabetes Mellitus Type 1: Yes Hx Diabetes Mellitus Type 2: Yes - HEMATOLOGICAL/ONCOLOGICAL Hx Blood Disorders: No Hx Cancer: Yes (UTER[place]) - INTEGUMENTARY Hx Dermatological Problems: No - MUSCULOSKELETAL/RHEUMATOLOGICAL Hx Arthritis: Yes - GASTROINTESTINAL Hx Gastritis: Yes - GENITOURINARY/GYNECOLOGICAL Hx Genitourinary Disorders: No Hx Uterine Cancer: Yes - PSYCHIATRIC Hx Psychophysiologic Disorder: No Hx Emotional Abuse: No Hx Physical Abuse: No Hx Substance Use: No - SURGICAL HISTORY Hx Cholecystectomy: Yes Hx Tonsillectomy: Yes (AGE 2) - ANESTHESIA Hx Anesthesia: Yes Hx Anesthesia Reactions: No Hx Malignant Hyperthermia: No Meds Allergies/Adverse Reactions: Allergies Allergy/AdvReac Type Severity Reaction Status Date / Time piperacillin [From Zosyn] Allergy RASH Verified 02/08/18 07:51 tazobactam [From Zosyn] Allergy RASH Verified 02/08/18 07:51 - Medications Medications: Current Medications Acetaminophen (Tylenol 325mg Tab) 650 mg PO Q4 PRN PRN Reason: Pain, Mild (1-3) Bisacodyl (Dulcolax) 5 mg PO DAILY PRN PRN Reason: Constipation Cadexomer Iodine (Iodosorb 0.9%) 1 applic TOP QOTHERDAY [facility] Enoxaparin Sodium (Lovenox) 110 mg SC Q12 [facility] PRN Reason: Protocol Last Admin: 02/08/18 10:58 Dose: 110 mg Hydrochlorothiazide (Microzide) 12.5 mg PO DAILY [facility] Last Admin: 02/08/18 09:08 Dose: 12.5 mg Piperacillin Sod/Tazobactam (Sod 3.375 gm/ Sodium Chloride) 100 mls @ 100 mls/ hr IVPB Q8@0500,1300,2100 [facility] Last Admin: 02/08/18 04:26 Dose: 100 mls/hr Insulin Human Regular (Humulin R) 0 units SC ACHS [facility] PRN Reason: Protocol Last Admin: 02/08/18 07:08 Dose: Not Given Lactulose (Enulose) 10 gm PO DAILY PRN PRN Reason: Constipation Levothyroxine Sodium (Synthroid) 25 mcg PO DAILY@0630 [facility] Last Admin: 02/08/18 05:51 Dose: 25 mcg Lidocaine (Lidoderm) 1 ea TD DAILY [facility] Last Admin: 02/08/18 09:10 Dose: 1 ea Lidocaine HCl (Xylocaine 2%) 1 applic TOP DAILY [facility] Multivitamins/Minerals (Therapeutic-M Tab) 1 tab PO HS [facility] Ondansetron HCl (Zofran Inj) 4 mg IVP Q6 PRN PRN Reason: Nausea/Vomiting Oxycodone/Acetaminophen (Percocet 5/325 Mg Tab) 1 tab PO Q6 PRN PRN Reason: Pain, moderate (4-7) Stop: 02/11/18 03:35 Last Admin: 02/08/18 10:55 Dose: 1 tab Pantoprazole Sodium (Protonix Ec Tab) 40 mg PO DAILY [facility] Last Admin: 02/08/18 09:08 Dose: 40 mg Repaglinide (Prandin) 2 mg PO TID [facility] Last Admin: 02/08/18 09:22 Dose: Not Given Senna/Docusate Sodium (Senokot S 50 Mg-8.6 Mg) 2 tab PO HS [facility] Valsartan (Diovan) 160 mg PO DAILY [facility] Last Admin: 02/08/18 09:09 Dose: 160 mg Zolpidem Tartrate (Ambien) 5 mg PO HS PRN PRN Reason: Insomnia Physical Exam - Constitutional Appears: Well, Non-toxic, No Acute Distress - Extremities Exam Additional comments: LLE focused physical exam: VASC: DP pulse palpable 2/4. PT pulse unable to be obtained due to location of wound. CFT <3 seconds to all digits. Temperature gradient warm to warm, increase in warmth medial ankle periwound. Nonpitting edema noted to ankle and foot. NEURO: Gross sensation intact. DERM: Surgical wound to medial ankle measuring approximately 5 x 1.5 cm; noted to have a mixed fibrogranular base, extending into fascia; deep rubor periwound extending 2cm circumfirentially; minimal malodor; serosanguinous drainage noted ; packing in place; no purulence able to be expressed. ORTHO: Pain on palpation medial ankle. No pain on palpation calf. - Neurological Exam Neurological exam: Alert, Oriented x3 - Psychiatric Exam Psychiatric exam: Normal Affect, Normal Mood Results - Vital Signs Recent Vital Signs: Last Vital Signs Temp 97.6 F 02/08/18 08:26 Pulse 87 02/08/18 08:26 Resp 20 02/08/18 08:26 BP 128/62 02/08/18 08:26 Pulse Ox 97 02/08/18 08:26 - Labs Labs: Laboratory Results - last 24 hr 02/08/18 05:42 POC Glucose (mg/dL) 118 H Assessment & Plan - Assessment and Plan (Free Text) Assessment: 48 year old female with 1) infected surgical wound left ankle, improving 2) LLE DVT within superficial femoral and popliteal veins POD#3 Incision and drainage of left foot wound with removal of all non-viable soft tissue Plan: Patient seen and evaluated Discussed with attending, Dr. Estevez Labs and vitals reviewed - afebrile LLE venous duplex (02/01/18): DVT within superficial femoral and popliteal veins Chest CT ordered r/o PE (02/01/18): Limited study due to suboptimal opacification and large body habitus demonstrating no acute central pulmonary embolus; no acute consolidation, mild atelectasis both posterior lower lung zones LLE MRI (02/03/18): Possible abscess collection medial aspect of mid/posterior calcaneus measuring 1.1 x 0.7 x 2.0cm, extends into posterior tarsal tunnel. LLE arterial duplex (02/04/18): awaiting report Therapeutic Lovenox 110mc SC QD; DVT management per primary team Left ankle WCx - staphylococcus aureus F/u intra-op specimens -Deep wound culture: (prelim) no growth -Soft tissue path: Adipose tissue with foci of necrosis, acute inflammation and granulation tissue reaction ID consulted - continue Zosyn 3.375g IV -Patient will require 6 weeks of Zosyn IV for LLE cellulitis, wound cx + MSSA per Dr. Hernandez -zosyn d/c as per nurse due to rash/ itchiness, waiting on ID for new abx recommendation Rx benadryl applied Iodosorb + Lidocaine jelly, DSD to LLE Pain management - Lidoderm TD, Percocet 1 tab PO breakthrough, Dilaudid 1mg IV, Tylenol 650mg PO Plan for graft application + delayed wound closure next week Saturday Podiatry will continue to follow while in house
[2018-02-08] MEDS: Lidocaine 2% GEL TOP SCH (16:29)
[2018-02-08] MEDS: CADEXOMER IODINE TOP SCH (16:30)
[2018-02-08] MEDS: LINEZOLID IVPB SCH (16:37)
[2018-02-08] MEDS: NS IVPB SCH (16:37)
[2018-02-08] MEDS ORDERED: Enoxaparin 120 mg Syringe SC SCH (17:00)
[2018-02-08] MEDS: Docusate-Senna 50 mg-8.6 mg Tab PO SCH (21:10)
[2018-02-08] MEDS: Multivitamin With Minerals Tab PO SCH (21:12)
[2018-02-09] MEDS: Oxycodone/Acetaminophen 5/325 mg Tab PO PRN (04:17)
[2018-02-09] MEDS: NS IVPB SCH (04:18)
[2018-02-09] MEDS: LINEZOLID IVPB SCH (04:18)
[2018-02-09] MEDS: Levothyroxine 25 MCG TAB PO SCH (05:30)
[2018-02-09] MEDS: Insulin Regular 100 units/ml SC SCH ×4 (06:38→21:59)
[2018-02-09] MEDS: Pantoprazole 40 mg EC Tab PO SCH (08:36)
[2018-02-09] MEDS: Enoxaparin 120 mg Syringe SC SCH ×2 (08:36→21:57)
[2018-02-09] MEDS: Lidocaine 5% Patch TD SCH (08:37)
[2018-02-09] MEDS: Lidocaine 2% GEL TOP SCH (08:58)
--- NOTE | 2018-02-09 10:44 | CP.PCM.PN ---
Subjective - Date & Time of Evaluation Date of Evaluation: 02/09/18 Time of Evaluation: 10:41 - Subjective Subjective: Podiatry Progress Note - Dr. Estevez 48 year old female patient seen and evaluated at bedside for infected surgical wound left ankle, POD#4 L foot I&D. Patient resting in bed comfortably, NAD. No acute events overnight. Patient reports moderate pain to her left ankle, still improved from initial presentation. Patient states that Dr. Estevez saw her yesterday and changed the dressing. Patient complaining of rash, itchiness to her lower abdomen is getting better from yesterday and has been treating it with a cream. Patient states that the antibiotics were changed to Zyvox due to the allergic reaction. Denies N/V/F/D/C/SOB. Objective - Vital Signs/Intake and Output Vital Signs (last 24 hours): Temp Pulse Resp BP Pulse Ox 97.9 F 77 20 98/59 L 98 02/09/18 08:27 02/09/18 08:27 02/09/18 08:27 02/09/18 08:27 02/09/18 08:27 - Medications Medications: Current Medications Acetaminophen (Tylenol 325mg Tab) 650 mg PO Q4 PRN PRN Reason: Pain, Mild (1-3) Bisacodyl (Dulcolax) 5 mg PO DAILY PRN PRN Reason: Constipation Cadexomer Iodine (Iodosorb 0.9%) 1 applic TOP QOTHERDAY [facility] Last Admin: 02/08/18 16:30 Dose: Not Given Diphenhydramine HCl (Benadryl) 25 mg PO Q6 PRN PRN Reason: Itching / Pruritus Last Admin: 02/08/18 21:16 Dose: 25 mg Enoxaparin Sodium (Lovenox) 110 mg SC Q12 [facility] PRN Reason: Protocol Last Admin: 02/09/18 08:36 Dose: 110 mg Hydrochlorothiazide (Microzide) 12.5 mg PO DAILY [facility] Last Admin: 02/09/18 08:51 Dose: Not Given Linezolid 600 mg in NS 300 ml (Zyvox 600mg/300ml Ns) 600 mg in 300 mls @ 300 mls/hr IVPB Q12@0500,1700 [facility] PRN Reason: Protocol Last Admin: 02/09/18 04:18 Dose: 300 mls/hr Insulin Human Regular (Humulin R) 0 units SC ACHS [facility] PRN Reason: Protocol Last Admin: 02/09/18 06:38 Dose: Not Given Lactulose (Enulose) 10 gm PO DAILY PRN PRN Reason: Constipation Levothyroxine Sodium (Synthroid) 25 mcg PO DAILY@0630 [facility] Last Admin: 02/09/18 05:30 Dose: 25 mcg Lidocaine (Lidoderm) 1 ea TD DAILY [facility] Last Admin: 02/09/18 08:37 Dose: 1 ea Lidocaine HCl (Xylocaine 2%) 1 applic TOP DAILY [facility] Last Admin: 02/09/18 08:58 Dose: Not Given Multivitamins/Minerals (Therapeutic-M Tab) 1 tab PO HS [facility] Last Admin: 02/08/18 21:12 Dose: 1 tab Ondansetron HCl (Zofran Inj) 4 mg IVP Q6 PRN PRN Reason: Nausea/Vomiting Oxycodone/Acetaminophen (Percocet 5/325 Mg Tab) 1 tab PO Q6 PRN PRN Reason: Pain, moderate (4-7) Stop: 02/11/18 03:35 Last Admin: 02/09/18 04:17 Dose: 1 tab Pantoprazole Sodium (Protonix Ec Tab) 40 mg PO DAILY [facility] Last Admin: 02/09/18 08:36 Dose: 40 mg Repaglinide (Prandin) 2 mg PO TID [facility] Last Admin: 02/09/18 08:57 Dose: Not Given Senna/Docusate Sodium (Senokot S 50 Mg-8.6 Mg) 2 tab PO HS [facility] Last Admin: 02/08/18 21:10 Dose: 2 tab Valsartan (Diovan) 160 mg PO DAILY [facility] Last Admin: 02/09/18 08:50 Dose: Not Given Zolpidem Tartrate (Ambien) 5 mg PO HS PRN PRN Reason: Insomnia Last Admin: 02/08/18 23:30 Dose: 5 mg - Constitutional Appears: Well, Non-toxic, No Acute Distress - Extremities Exam Additional comments: LLE focused: dressing remains clean,dry,intact CFT < 3 sec to all digits able to wiggle toes no calf pain or tenderness noted on palpation - Neurological Exam Neurological Exam: Alert, Awake, Oriented x3 - Psychiatric Exam Psychiatric exam: Normal Affect, Normal Mood Assessment and Plan - Assessment and Plan (Free Text) Assessment: 48 year old female with 1) infected surgical wound left ankle, improving 2) LLE DVT within superficial femoral and popliteal veins POD#4 Incision and drainage of left foot wound with removal of all non-viable soft tissue Plan: Patient seen and evaluated Discussed with attending, Dr. Estevez Labs and vitals reviewed - afebrile LLE venous duplex (02/01/18): DVT within superficial femoral and popliteal veins Chest CT ordered r/o PE (02/01/18): Limited study due to suboptimal opacification and large body habitus demonstrating no acute central pulmonary embolus; no acute consolidation, mild atelectasis both posterior lower lung zones LLE MRI (02/03/18): Possible abscess collection medial aspect of mid/posterior calcaneus measuring 1.1 x 0.7 x 2.0cm, extends into posterior tarsal tunnel. LLE arterial duplex (02/04/18): awaiting report Therapeutic Lovenox 110mc SC QD; DVT management per primary team Left ankle WCx - staphylococcus aureus -Deep wound culture: (prelim) no growth -Soft tissue path: Adipose tissue with foci of necrosis, acute inflammation and granulation tissue reaction ID consulted - continue Linezolid 600mg IV q12h -Patient will require 6 weeks of Linezolid for LLE cellulitis, wound cx + MSSA per Dr. Hernandez dressing to LLE remains intact Pain management - Lidoderm TD, Percocet 1 tab PO breakthrough, Dilaudid 1mg IV, Tylenol 650mg PO Plan for graft application + delayed wound closure next week Saturday Podiatry will continue to follow while in house
--- NOTE | 2018-02-09 13:22 | CP.PCM.CON ---
History of Present Illness - History of Present Illness History of Present Illness: 48 year old female patient seen for nonhealing wound to left ankle and left calf pain.. Patient had left tarsal tunnel release with removal of soft tissue mass 11/20/17 and was healing well; as pain started to diminish patient started to ambulate with CAM walker while she was supposed to be NWB. At this time, her surgical wound dehisced. A wound vac was placed for 2 weeks however vac malfunctioned but was left in place for [address] Estevez, patient was placed on Bactrim last week but has not alleviated any redness. Currently, patient reports 10/10 pain to medial left ankle. Patient also complaining of left calf pain ongoing for the past 2 weeks diagnosed with cellulitis left medial foot, DVT, Osteomyelitis left ankle IV rx in progress s/p I and D developed rash- likely fungal - exclusively skin folds Review of Systems - Review of Systems All systems: reviewed and no additional remarkable complaints except - Constitutional Constitutional: As Per HPI - EENT Eyes: absent: As Per HPI, Blind Spots, Blurred Vision, Change in Vision, Decreased Night Vision, Diplopia, Discharge, Dry Eye, Exophthalmos, Floaters, Irritation, Itchy Eyes, Loss of Peripheral Vision, Pain, Photophobia, Requires Corrective Lenses, Sees Flashes, Spots in Vision, Tunnel Vision, Other Visual Disturbances, Loss of Vision, Other Ears: absent: As Per HPI, Decreased Hearing, Ear Discharge, Ear Pain, Tinnitus, Abnormal Hearing, Disequilibrium, Dizziness, Other Nose/Mouth/Throat: absent: As Per HPI, Epistaxis, Nasal Congestion, Nasal Discharge, Nasal Obstruction, Nasal Trauma, Nose Pain, Post Nasal Drip, Sinus Pain, Sinus Pressure, Bleeding Gums, Change in Voice, Dental Pain, Dry Mouth, Dysphagia, Halitosis, Hoarsness, Lip Swelling, Mouth Lesions, Mouth Pain, Odynophagia, Sore Throat, Throat Swelling, Tongue Swelling, Facial Pain, Neck Pain, Neck Mass, Other - Breasts Breasts: absent: As Per HPI, Change in Shape, Mass, Pain, Nipple Discharge, Nipple Inversion, Skin Changes, Swelling, Other - Cardiovascular Cardiovascular: absent: As Per HPI, Acrocyanosis, Chest Pain, Chest Pain at Rest , Chest Pain with Activity, Claudication, Diaphoresis, Dyspnea, Dyspnea on Exertion, Edema, Irregular Heart Rhythm, Pain Radiating to Arm/Neck/Jaw, Leg Edema, Leg Ulcers, Lightheadedness, Orthopnea, Palpitations, Paroxysmal Nocturnal Dyspnea, Pedal Edema, Radiating Pain, Rapid Heart Rate, Slow Heart Rate, Syncope, Other - Respiratory Respiratory: absent: As Per HPI, Cough, Dyspnea, Hemoptysis, Dyspnea on Exertion , Wheezing, Snoring, Stridor, Pain on Inspiration, Chest Congestion, Excessive Mucous Production, Change in Mucous Color, Pain with Coughing, Other - Gastrointestinal Gastrointestinal: absent: As Per HPI, Abdominal Pain, Belching, Bloating, Change in Bowel Habits, Change in Stool Character, Coffee Ground Emesis, Constipation, Cramping, Diarrhea, Dyspepsia, Dysphagia, Early Satiety, Excessive Flatus, Fecal Incontinence, Heartburn, Hematemesis, Hematochezia, Loose Stools, Melena, Nausea, Odynophagia, Temesmus, Vomiting, Other - Genitourinary Genitourinary: absent: As Per HPI, Change in Urinary Stream, Difficulty Urinating, Dysuria, Flank Pain, Hematuria, Pyuria, Nocturia, Urinary Incontinence, Urinary Frequency, Urinary Hesitance, Urinary Urgency, Voiding Freq/Small Amts, Freq UTI, Hx Renal/Bladder Calculi, Hx /Renal Surgery, Bladder Distension, Other - Reproductive: Female Reproductive:Female: absent: As Per HPI, Amenorrhea, Amenorrhea/ Control, Currently Menstual, Cycle <21 Days, Cycle >35 Days, Cycle Variable, Menses 1-7 Days, Menses >/= 8 Days, Menses Variable, Cycle > 4 Weeks Between, No Menses for 6 Months, Heavy Menses, Light Menses, Normal Menses, Spotting Between Cycles , S/P Hysterectomy, Menopausal, Post Menopausal, Premenarche, Abnormal Vaginal Bleeding, Dysmenorrhea, Dyspareunia, Genital Lesions, Genital Pruritis, Pelvic Pain, Prolapse Symptoms, Sexual Dysfunction, Vaginal Discharge, Vaginal Dryness , Vaginal Odor, Vaginal Pruritis, Other - Menstruation Menstruation: absent: As Per HPI, Amenorrhea, Amenorrhea/ Control, Currently Menstual, Cycle <21 Days, Cycle >35 Days, Cycle Variable, Menses 1-7 Days, Menses >/= 8 Days, Menses Variable, Cycle > 4 Weeks Between, No Menses for 6 Months, Heavy Menses, Light Menses, Normal Menses, Spotting Between Cycles , S/P Hysterectomy, Menopausal, Post Menopausal, Premenarche, Abnormal Vaginal Bleeding, Dysmenorrhea, Other - Musculoskeletal Musculoskeletal: As Per HPI - Integumentary Integumentary: As Per HPI - Neurological Neurological: absent: As Per HPI, Abnormal Gait, Abnormal Hearing, Abnormal Movements, Abnormal Speech, Behavioral Changes, Burning Sensations, Confusion, Convulsions, Disequilibrium, Dizziness, Numbness, Focal Weakness, Frequent Falls , Headaches, Lack of Coordination, Loss of Vision, Memory Loss, Paresthesias, Radicular Pain, Restless Legs, Sensory Deficit, Syncope, Tingling, Tremor, Vertigo, Weakness, Other Visual Disturbances, Other - Psychiatric Psychiatric: absent: As Per HPI, Abnormal Sleep Pattern, Anhedonia, Anxiety, Auditory Hallucinations, Behavioral Changes, Change in Appetite, Change in Libido, Confusion, Depression, Difficulty Concentrating, Hallucinations, Homicidal Ideation, Hopelessness, Irritability, Memory Loss, Mood Swings, Panic Attacks, Paranoia, Suicidal Ideation, Visual Hallucinations, Tactile Hallucinations, Other - Endocrine Endocrine: absent: As Per HPI, Change in Body Appearance, Change in Libido, Cold Intolorance, Deepening of Voice, Excessive Sweating, Fatigue, Flushing, Heat Intolorance, Increase in Ring/Shoe/Hat Size, Palpitations, Polydipsia, Polyphagia, Polyuria, Other - Hematologic/Lymphatic Hematologic: absent: As Per HPI, Easy Bleeding, Easy Bruising, Lymphadenopathy, Other Past Patient History - Infectious Disease Hx of Infectious Diseases: None - Past Medical History & Family History Past Medical History?: Yes - Past Social History Smoking Status: Never Smoked - CARDIAC Hx Hypertension: Yes - PULMONARY Hx Asthma: No - NEUROLOGICAL Hx Neurological Disorder: Yes Other/Comment: [place] LEFT FOOT - HEENT Hx HEENT Problems: No - RENAL Hx Chronic Kidney Disease: No - ENDOCRINE/METABOLIC Hx Diabetes Mellitus Type 2: Yes - HEMATOLOGICAL/ONCOLOGICAL Hx Blood Disorders: No Hx Cancer: Yes (UTERINE) - INTEGUMENTARY Hx Dermatological Problems: No - MUSCULOSKELETAL/RHEUMATOLOGICAL Hx Arthritis: Yes - GASTROINTESTINAL Hx Gastritis: Yes - GENITOURINARY/GYNECOLOGICAL Hx Genitourinary Disorders: No Hx Uterine Cancer: Yes - PSYCHIATRIC Hx Psychophysiologic Disorder: No Hx Emotional Abuse: No Hx Physical Abuse: No Hx Substance Use: No - SURGICAL HISTORY Hx Cholecystectomy: Yes Hx Tonsillectomy: Yes (AGE 2) - ANESTHESIA Hx Anesthesia: Yes Hx Anesthesia Reactions: No Hx Malignant Hyperthermia: No Meds Allergies/Adverse Reactions: Allergies Allergy/AdvReac Type Severity Reaction Status Date / Time piperacillin [From Zosyn] Allergy RASH Verified 02/08/18 07:51 tazobactam [From Zosyn] Allergy RASH Verified 02/08/18 07:51 - Medications Medications: Current Medications Acetaminophen (Tylenol 325mg Tab) 650 mg PO Q4 PRN PRN Reason: Pain, Mild (1-3) Bisacodyl (Dulcolax) 5 mg PO DAILY PRN PRN Reason: Constipation Cadexomer Iodine (Iodosorb 0.9%) 1 applic TOP QOTHERDAY [facility] Last Admin: 02/08/18 16:30 Dose: Not Given Diphenhydramine HCl (Benadryl) 25 mg PO Q6 PRN PRN Reason: Itching / Pruritus Last Admin: 02/08/18 21:16 Dose: 25 mg Enoxaparin Sodium (Lovenox) 110 mg SC Q12 [facility] PRN Reason: Protocol Last Admin: 02/09/18 08:36 Dose: 110 mg Hydrochlorothiazide (Microzide) 12.5 mg PO DAILY [facility] Last Admin: 02/09/18 08:51 Dose: Not Given Linezolid 600 mg in NS 300 ml (Zyvox 600mg/300ml Ns) 600 mg in 300 mls @ 300 mls/hr IVPB Q12@0500,1700 [facility] PRN Reason: Protocol Last Admin: 02/09/18 04:18 Dose: 300 mls/hr Insulin Human Regular (Humulin R) 0 units SC ACHS [facility] PRN Reason: Protocol Last Admin: 02/09/18 12:15 Dose: Not Given Lactulose (Enulose) 10 gm PO DAILY PRN PRN Reason: Constipation Levothyroxine Sodium (Synthroid) 25 mcg PO DAILY@0630 [facility] Last Admin: 02/09/18 05:30 Dose: 25 mcg Lidocaine (Lidoderm) 1 ea TD DAILY [facility] Last Admin: 02/09/18 08:37 Dose: 1 ea Lidocaine HCl (Xylocaine 2%) 1 applic TOP DAILY [facility] Last Admin: 02/09/18 08:58 Dose: Not Given Multivitamins/Minerals (Therapeutic-M Tab) 1 tab PO HS [facility] Last Admin: 02/08/18 21:12 Dose: 1 tab Ondansetron HCl (Zofran Inj) 4 mg IVP Q6 PRN PRN Reason: Nausea/Vomiting Oxycodone/Acetaminophen (Percocet 5/325 Mg Tab) 1 tab PO Q6 PRN PRN Reason: Pain, moderate (4-7) Stop: 02/11/18 03:35 Last Admin: 02/09/18 04:17 Dose: 1 tab Pantoprazole Sodium (Protonix Ec Tab) 40 mg PO DAILY [facility] Last Admin: 02/09/18 08:36 Dose: 40 mg Repaglinide (Prandin) 2 mg PO TID [facility] Last Admin: 02/09/18 12:32 Dose: 2 mg Senna/Docusate Sodium (Senokot S 50 Mg-8.6 Mg) 2 tab PO HS [facility] Last Admin: 02/08/18 21:10 Dose: 2 tab Valsartan (Diovan) 160 mg PO DAILY [facility] Last Admin: 02/09/18 08:50 Dose: Not Given Zolpidem Tartrate (Ambien) 5 mg PO HS PRN PRN Reason: Insomnia Last Admin: 02/08/18 23:30 Dose: 5 mg Physical Exam - Constitutional Appears: Non-toxic, Chronically Ill - Head Exam Head Exam: NORMOCEPHALIC - Eye Exam Eye Exam: PERRL. absent: Scleral icterus - ENT Exam ENT Exam: Mucous Membranes Dry, Normal External Ear Exam - Neck Exam Neck exam: Negative for: Lymphadenopathy - Respiratory Exam Respiratory Exam: Decreased Breath Sounds - Cardiovascular Exam Cardiovascular Exam: REGULAR RHYTHM - GI/Abdominal Exam GI & Abdominal Exam: Diminished Bowel Sounds - Rectal Exam Rectal Exam: Deferred - Exam Exam: NORMAL INSPECTION - Extremities Exam Extremities exam: Positive for: tenderness, pedal pulses present. Negative for : calf tenderness, normal inspection, pedal edema - Back Exam Back exam: CVA tenderness (L), CVA tenderness (R), paraspinal tenderness - Neurological Exam Neurological exam: Alert, CN II-XII Intact, Oriented x3, Reflexes Normal - Psychiatric Exam Psychiatric exam: Normal Mood - Skin Skin Exam: Dry Results - Vital Signs Recent Vital Signs: Last Vital Signs Temp 97.9 F 02/09/18 08:27 Pulse 77 02/09/18 08:27 Resp 20 02/09/18 08:27 BP 98/59 L 02/09/18 08:27 Pulse Ox 98 02/09/18 08:27 - Labs Labs: Laboratory Results - last 24 hr 02/08/18 02/08/18 02/09/18 16:14 20:44 05:22 POC Glucose (mg/dL) 139 H 81 89 02/09/18 11:35 POC Glucose (mg/dL) 109 Assessment & Plan - Assessment and Plan (Free Text) Plan: diagnosed with cellulitis left medial foot, DVT, Osteomyelitis left ankle IV rx in progress s/p I and D developed rash- likely fungal - exclusively skin folds would rx as OM for 6 weeks
[2018-02-09] MEDS: ceFAZolin IV 2 gm in Dextrose 2 GM/50 ML BAG IVPB SCH (16:47)
[2018-02-09] MEDS: Docusate-Senna 50 mg-8.6 mg Tab PO SCH (21:59)
[2018-02-09] MEDS: Multivitamin With Minerals Tab PO SCH (22:00)
--- NOTE | 2018-02-10 | CP.PCM.PN ---
Subjective - Date & Time of Evaluation Date of Evaluation: 02/10/18 Time of Evaluation: 18:00 Objective - Vital Signs/Intake and Output Vital Signs (last 24 hours): Temp Pulse Resp BP Pulse Ox 97.9 F 90 20 106/66 97 02/09/18 20:06 02/09/18 20:06 02/09/18 20:06 02/09/18 20:06 02/09/18 20:06 - Medications Medications: Current Medications Acetaminophen (Tylenol 325mg Tab) 650 mg PO Q4 PRN PRN Reason: Pain, Mild (1-3) Bisacodyl (Dulcolax) 5 mg PO DAILY PRN PRN Reason: Constipation Cadexomer Iodine (Iodosorb 0.9%) 1 applic TOP QOTHERDAY [facility] Last Admin: 02/08/18 16:30 Dose: Not Given Diphenhydramine HCl (Benadryl) 25 mg PO Q6 PRN PRN Reason: Itching / Pruritus Last Admin: 02/08/18 21:16 Dose: 25 mg Enoxaparin Sodium (Lovenox) 110 mg SC Q12 [facility] PRN Reason: Protocol Last Admin: 02/09/18 21:57 Dose: 110 mg Hydrochlorothiazide (Microzide) 12.5 mg PO DAILY [facility] Last Admin: 02/09/18 08:51 Dose: Not Given Cefazolin Sodium/Dextrose (Ancef Iv 2 Gm Duplex) 2 gm in 50 mls @ 50 mls/hr IVPB Q8 [facility] PRN Reason: Protocol Last Admin: 02/09/18 16:47 Dose: 50 mls/hr Insulin Human Regular (Humulin R) 0 units SC ACHS [facility] PRN Reason: Protocol Last Admin: 02/09/18 21:59 Dose: Not Given Ketoconazole (Nizoral) 1 applic TOP BID [facility] Last Admin: 02/09/18 16:47 Dose: 1 unit Lactulose (Enulose) 10 gm PO DAILY PRN PRN Reason: Constipation Levothyroxine Sodium (Synthroid) 25 mcg PO DAILY@0630 [facility] Last Admin: 02/09/18 05:30 Dose: 25 mcg Lidocaine (Lidoderm) 1 ea TD DAILY [facility] Last Admin: 02/09/18 08:37 Dose: 1 ea Lidocaine HCl (Xylocaine 2%) 1 applic TOP DAILY [facility] Last Admin: 02/09/18 08:58 Dose: Not Given Multivitamins/Minerals (Therapeutic-M Tab) 1 tab PO HS [facility] Last Admin: 02/09/18 22:00 Dose: 1 tab Oxycodone/Acetaminophen (Percocet 5/325 Mg Tab) 1 tab PO Q6 PRN PRN Reason: Pain, moderate (4-7) Stop: 02/11/18 03:35 Last Admin: 02/09/18 04:17 Dose: 1 tab Pantoprazole Sodium (Protonix Ec Tab) 40 mg PO DAILY [facility] Last Admin: 02/09/18 08:36 Dose: 40 mg Repaglinide (Prandin) 2 mg PO TID [facility] Last Admin: 02/09/18 16:48 Dose: Not Given Senna/Docusate Sodium (Senokot S 50 Mg-8.6 Mg) 2 tab PO HS [facility] Last Admin: 02/09/18 21:59 Dose: 2 tab Valsartan (Diovan) 160 mg PO DAILY [facility] Last Admin: 02/09/18 08:50 Dose: Not Given Zolpidem Tartrate (Ambien) 5 mg PO HS PRN PRN Reason: Insomnia Last Admin: 02/09/18 21:58 Dose: 5 mg
[2018-02-10] MEDS: ceFAZolin IV 2 gm in Dextrose 2 GM/50 ML BAG IVPB SCH ×3 (00:48→17:09)
[2018-02-10] MEDS: Oxycodone/Acetaminophen 5/325 mg Tab PO PRN ×2 (05:12→11:07)
--- NOTE | 2018-02-10 05:43 | CP.PCM.PN ---
Subjective - Date & Time of Evaluation Date of Evaluation: 02/10/18 Time of Evaluation: 05:42 - Subjective Subjective: Podiatry Progress Note - Dr. Estevez 48 year old female patient seen and evaluated at bedside for infected surgical wound left ankle, POD#5 L foot I&D. Patient hemodynamically stable and NAD. No acute events overnight. Reports continued pain to left ankle, well-controlled. Patient states the generalized rash all over her body has improved, less itchy. Patient has been using cream for alleviation of itchiness. Dressing to LLE clean /dry/intact with no strikethrough noted. Multipodus boot not present to LLE. Denies N/V/F/D/C/SOB/calf pain. Offers no other complaints. Objective - Vital Signs/Intake and Output Vital Signs (last 24 hours): Temp Pulse Resp BP Pulse Ox 97.9 F 90 20 106/66 97 02/09/18 20:06 02/09/18 20:06 02/09/18 20:06 02/09/18 20:06 02/09/18 20:06 - Medications Medications: Current Medications Acetaminophen (Tylenol 325mg Tab) 650 mg PO Q4 PRN PRN Reason: Pain, Mild (1-3) Bisacodyl (Dulcolax) 5 mg PO DAILY PRN PRN Reason: Constipation Cadexomer Iodine (Iodosorb 0.9%) 1 applic TOP QOTHERDAY [facility] Last Admin: 02/08/18 16:30 Dose: Not Given Diphenhydramine HCl (Benadryl) 25 mg PO Q6 PRN PRN Reason: Itching / Pruritus Last Admin: 02/08/18 21:16 Dose: 25 mg Enoxaparin Sodium (Lovenox) 110 mg SC Q12 [facility]ELLE PRN Reason: Protocol Last Admin: 02/09/18 21:57 Dose: 110 mg Hydrochlorothiazide (Microzide) 12.5 mg PO DAILY [facility] Last Admin: 02/09/18 08:51 Dose: Not Given Cefazolin Sodium/Dextrose (Ancef Iv 2 Gm Duplex) 2 gm in 50 mls @ 50 mls/hr IVPB Q8 NOELLE PRN Reason: Protocol Last Admin: 02/10/18 00:48 Dose: 50 mls/hr Insulin Human Regular (Humulin R) 0 units SC ACHS NOELLE PRN Reason: Protocol Last Admin: 02/09/18 21:59 Dose: Not Given Ketoconazole (Nizoral) 1 applic TOP BID [facility] Last Admin: 02/09/18 16:47 Dose: 1 unit Lactulose (Enulose) 10 gm PO DAILY PRN PRN Reason: Constipation Levothyroxine Sodium (Synthroid) 25 mcg PO DAILY@0630 [facility] Last Admin: 02/09/18 05:30 Dose: 25 mcg Lidocaine (Lidoderm) 1 ea TD DAILY [facility] Last Admin: 02/09/18 08:37 Dose: 1 ea Lidocaine HCl (Xylocaine 2%) 1 applic TOP DAILY [facility] Last Admin: 02/09/18 08:58 Dose: Not Given Multivitamins/Minerals (Therapeutic-M Tab) 1 tab PO HS [facility] Last Admin: 02/09/18 22:00 Dose: 1 tab Oxycodone/Acetaminophen (Percocet 5/325 Mg Tab) 1 tab PO Q6 PRN PRN Reason: Pain, moderate (4-7) Stop: 02/11/18 03:35 Last Admin: 02/10/18 05:12 Dose: 1 tab Pantoprazole Sodium (Protonix Ec Tab) 40 mg PO DAILY [facility] Last Admin: 02/09/18 08:36 Dose: 40 mg Repaglinide (Prandin) 2 mg PO TID [facility] Last Admin: 02/09/18 16:48 Dose: Not Given Senna/Docusate Sodium (Senokot S 50 Mg-8.6 Mg) 2 tab PO HS [facility] Last Admin: 02/09/18 21:59 Dose: 2 tab Valsartan (Diovan) 160 mg PO DAILY [facility] Last Admin: 02/09/18 08:50 Dose: Not Given Zolpidem Tartrate (Ambien) 5 mg PO HS PRN PRN Reason: Insomnia Last Admin: 02/10/18 00:49 Dose: 5 mg - Constitutional Appears: Well, Non-toxic, No Acute Distress - Extremities Exam Additional comments: LLE focused physical exam: VASC: DP pulse palpable 2/4. PT pulse unable to be obtained due to location of wound. CFT <3 seconds to all digits. Temperature gradient warm to warm, no increase in warmth medial ankle periwound. Nonpitting edema noted to ankle and foot, decreased from previous visit. NEURO: Gross sensation intact. DERM: Surgical wound to medial ankle measuring approximately 4.5 x 1.8 cm; noted to have a mixed fibrogranular base, extending into fascia; deep rubor periwound extending 2cm at proximal aspect of wound, improving; no malodor present; no purulence or drainage noted. ORTHO: Pain on palpation medial ankle. No pain on palpation calf. - Neurological Exam Neurological Exam: Alert, Awake, Oriented x3 - Psychiatric Exam Psychiatric exam: Anxious Assessment and Plan - Assessment and Plan (Free Text) Assessment: 48 year old female with 1) infected surgical wound left ankle, improving 2) LLE DVT within superficial femoral and popliteal veins POD#5 Incision and drainage of left foot wound with removal of all non-viable soft tissue Plan: Patient seen and evaluated Discussed with attending, Dr. Estevez Labs and vitals reviewed - afebrile LLE venous duplex (02/01/18): DVT within superficial femoral and popliteal veins Chest CT ordered r/o PE (02/01/18): Limited study due to suboptimal opacification and large body habitus demonstrating no acute central pulmonary embolus; no acute consolidation, mild atelectasis both posterior lower lung zones LLE MRI (02/03/18): Possible abscess collection medial aspect of mid/posterior calcaneus measuring 1.1 x 0.7 x 2.0cm, extends into posterior tarsal tunnel. LLE arterial duplex (02/04/18): awaiting report Therapeutic Lovenox 110mc SC Q12H; DVT management per primary team Left ankle WCx - staphylococcus aureus -Deep wound culture: staph aureus -Soft tissue path: Adipose tissue with foci of necrosis, acute inflammation and granulation tissue reaction ID consulted - continue Linezolid 600mg IV q12h -Patient will require 6 weeks abx (Cefazolin) for LLE cellulitis, wound cx + MSSA per Dr. Hernandez Wound cleansed with sterile saline and dressed with Iodosorb + lidocaine jelly, DSD Pain management - Lidoderm TD, Percocet 1 tab PO breakthrough, Dilaudid 1mg IV, Tylenol 650mg PO Plan for graft application + delayed wound closure Saturday/ Podiatry will continue to follow while in house
[2018-02-10] MEDS: Levothyroxine 25 MCG TAB PO SCH (06:41)
[2018-02-10] MEDS: Insulin Regular 100 units/ml SC SCH ×4 (07:41→21:01)
[2018-02-10] MEDS: Enoxaparin 120 mg Syringe SC SCH ×2 (08:40→20:54)
[2018-02-10] MEDS: CADEXOMER IODINE TOP SCH (08:40)
[2018-02-10] MEDS: Lidocaine 5% Patch TD SCH (08:40)
[2018-02-10] MEDS: Lidocaine 2% GEL TOP SCH (08:41)
[2018-02-10] MEDS: Pantoprazole 40 mg EC Tab PO SCH (08:41)
[2018-02-10] MEDS: Multivitamin With Minerals Tab PO SCH (21:00)
[2018-02-10] MEDS: Docusate-Senna 50 mg-8.6 mg Tab PO SCH (21:00)
--- NOTE | 2018-02-10 22:43 | CP.PCM.PN ---
Objective - Vital Signs/Intake and Output Vital Signs (last 24 hours): Temp Pulse Resp BP Pulse Ox 97.9 F 95 H 20 118/73 99 02/10/18 19:39 02/10/18 19:39 02/10/18 19:39 02/10/18 19:39 02/10/18 19:39 - Medications Medications: Current Medications Acetaminophen (Tylenol 325mg Tab) 650 mg PO Q4 PRN PRN Reason: Pain, Mild (1-3) Bisacodyl (Dulcolax) 5 mg PO DAILY PRN PRN Reason: Constipation Cadexomer Iodine (Iodosorb 0.9%) 1 applic TOP QOTHERDAY [facility] Last Admin: 02/10/18 08:40 Dose: 1 applic Diphenhydramine HCl (Benadryl) 25 mg PO Q6 PRN PRN Reason: Itching / Pruritus Last Admin: 02/10/18 20:58 Dose: 25 mg Enoxaparin Sodium (Lovenox) 110 mg SC Q12 [facility]ELLE PRN Reason: Protocol Last Admin: 02/10/18 20:54 Dose: 110 mg Hydrochlorothiazide (Microzide) 12.5 mg PO DAILY [facility] Last Admin: 02/10/18 08:40 Dose: 12.5 mg Cefazolin Sodium/Dextrose (Ancef Iv 2 Gm Duplex) 2 gm in 50 mls @ 50 mls/hr IVPB Q8 NOELLE PRN Reason: Protocol Last Admin: 02/10/18 17:09 Dose: 50 mls/hr Insulin Human Regular (Humulin R) 0 units SC ACHS [facility] PRN Reason: Protocol Last Admin: 02/10/18 21:01 Dose: Not Given Ketoconazole (Nizoral) 1 applic TOP BID [facility] Lactulose (Enulose) 10 gm PO DAILY PRN PRN Reason: Constipation Levothyroxine Sodium (Synthroid) 25 mcg PO DAILY@0630 [facility] Last Admin: 02/10/18 06:41 Dose: 25 mcg Lidocaine (Lidoderm) 1 ea TD DAILY [facility] Last Admin: 02/10/18 08:40 Dose: 1 ea Lidocaine HCl (Xylocaine 2%) 1 applic TOP DAILY [facility] Last Admin: 02/10/18 08:41 Dose: Not Given Multivitamins/Minerals (Therapeutic-M Tab) 1 tab PO HS [facility] Last Admin: 02/10/18 21:00 Dose: 1 tab Oxycodone/Acetaminophen (Percocet 5/325 Mg Tab) 1 tab PO Q6 PRN PRN Reason: Pain, moderate (4-7) Stop: 02/11/18 03:35 Last Admin: 02/10/18 11:07 Dose: 1 tab Pantoprazole Sodium (Protonix Ec Tab) 40 mg PO DAILY [facility] Last Admin: 02/10/18 08:41 Dose: 40 mg Repaglinide (Prandin) 2 mg PO TID [facility] Last Admin: 02/10/18 17:09 Dose: Not Given Senna/Docusate Sodium (Senokot S 50 Mg-8.6 Mg) 2 tab PO HS [facility] Last Admin: 02/10/18 21:00 Dose: 2 tab Valsartan (Diovan) 160 mg PO DAILY [facility] Last Admin: 02/10/18 08:40 Dose: 160 mg Zolpidem Tartrate (Ambien) 5 mg PO HS PRN PRN Reason: Insomnia
[2018-02-11] MEDS: ceFAZolin IV 2 gm in Dextrose 2 GM/50 ML BAG IVPB SCH ×3 (01:00→16:44)
[2018-02-11] MEDS: Oxycodone/Acetaminophen 5/325 mg Tab PO PRN (03:14)
[2018-02-11] MEDS: Insulin Regular 100 units/ml SC SCH ×4 (06:54→22:25)
[2018-02-11] MEDS: Levothyroxine 25 MCG TAB PO SCH (06:55)
--- NOTE | 2018-02-11 07:34 | CP.PCM.PN ---
Subjective - Date & Time of Evaluation Date of Evaluation: 02/11/18 Time of Evaluation: 07:34 - Subjective Subjective: Podiatry Progress Note - Dr. Estevez 48 year old female patient seen and evaluated for infected surgical wound left ankle, POD#6 L foot I&D. Patient hemodynamically stable and NAD. Patient has been working with physical therapy without any issues. No acute events overnight. Pain to left ankle is slowly decreasing. No complaints with rash today. Patient is concerned her foot is swelling again however no pain distal to wound site. Dressing LLE clean/dry/intact. Patient admits she has not been compliant with the multipodus boot. Denies N/V/F/D/C/SOB/calf pain. Offers no other complaints. Objective - Vital Signs/Intake and Output Vital Signs (last 24 hours): Temp Pulse Resp BP Pulse Ox 97.9 F 95 H 20 118/73 99 02/10/18 19:39 02/10/18 19:39 02/10/18 19:39 02/10/18 19:39 02/10/18 19:39 - Medications Medications: Current Medications Acetaminophen (Tylenol 325mg Tab) 650 mg PO Q4 PRN PRN Reason: Pain, Mild (1-3) Bisacodyl (Dulcolax) 5 mg PO DAILY PRN PRN Reason: Constipation Cadexomer Iodine (Iodosorb 0.9%) 1 applic TOP QOTHERDAY [facility] Last Admin: 02/10/18 08:40 Dose: 1 applic Diphenhydramine HCl (Benadryl) 25 mg PO Q6 PRN PRN Reason: Itching / Pruritus Last Admin: 02/10/18 20:58 Dose: 25 mg Enoxaparin Sodium (Lovenox) 110 mg SC Q12 [facility]ELLE PRN Reason: Protocol Last Admin: 02/10/18 20:54 Dose: 110 mg Hydrochlorothiazide (Microzide) 12.5 mg PO DAILY [facility] Last Admin: 02/10/18 08:40 Dose: 12.5 mg Cefazolin Sodium/Dextrose (Ancef Iv 2 Gm Duplex) 2 gm in 50 mls @ 50 mls/hr IVPB Q8 NOELLE PRN Reason: Protocol Last Admin: 02/11/18 01:00 Dose: 50 mls/hr Insulin Human Regular (Humulin R) 0 units SC ACHS [facility] PRN Reason: Protocol Last Admin: 02/11/18 06:54 Dose: Not Given Ketoconazole (Nizoral) 1 applic TOP BID [facility] Lactulose (Enulose) 10 gm PO DAILY PRN PRN Reason: Constipation Levothyroxine Sodium (Synthroid) 25 mcg PO DAILY@0630 [facility] Last Admin: 02/11/18 06:55 Dose: 25 mcg Lidocaine (Lidoderm) 1 ea TD DAILY [facility] Last Admin: 02/10/18 08:40 Dose: 1 ea Lidocaine HCl (Xylocaine 2%) 1 applic TOP DAILY [facility] Last Admin: 02/10/18 08:41 Dose: Not Given Multivitamins/Minerals (Therapeutic-M Tab) 1 tab PO HS [facility] Last Admin: 02/10/18 21:00 Dose: 1 tab Pantoprazole Sodium (Protonix Ec Tab) 40 mg PO DAILY [facility] Last Admin: 02/10/18 08:41 Dose: 40 mg Repaglinide (Prandin) 2 mg PO TID [facility] Last Admin: 02/10/18 17:09 Dose: Not Given Senna/Docusate Sodium (Senokot S 50 Mg-8.6 Mg) 2 tab PO HS [facility] Last Admin: 02/10/18 21:00 Dose: 2 tab Valsartan (Diovan) 160 mg PO DAILY [facility] Last Admin: 02/10/18 08:40 Dose: 160 mg Zolpidem Tartrate (Ambien) 5 mg PO HS PRN PRN Reason: Insomnia Last Admin: 02/10/18 23:28 Dose: 5 mg - Constitutional Appears: Well, Non-toxic, No Acute Distress - Extremities Exam Additional comments: Dressing to LLE appears clean/dry/intact with no strikethrough noted. NVSI to left digits 1-5 +1 pitting edema noted to dorsum of forefoot and digits - Neurological Exam Neurological Exam: Alert, Awake, Oriented x3 - Psychiatric Exam Psychiatric exam: Normal Affect, Normal Mood Assessment and Plan - Assessment and Plan (Free Text) Assessment: 48 year old female with 1) infected surgical wound left ankle, improving 2) LLE DVT within superficial femoral and popliteal veins POD#6 Incision and drainage of left foot wound with removal of all non-viable soft tissue Plan: Patient seen and evaluated Discussed with attending, Dr. Estevez Labs and vitals reviewed - afebrile LLE venous duplex (02/01/18): DVT within superficial femoral and popliteal veins Chest CT ordered r/o PE (02/01/18): Limited study due to suboptimal opacification and large body habitus demonstrating no acute central pulmonary embolus; no acute consolidation, mild atelectasis both posterior lower lung zones LLE MRI (02/03/18): Possible abscess collection medial aspect of mid/posterior calcaneus measuring 1.1 x 0.7 x 2.0cm, extends into posterior tarsal tunnel. LLE arterial duplex (02/04/18): awaiting report Therapeutic Lovenox 110mc SC Q12H; DVT management per primary team Left ankle WCx - staphylococcus aureus -Deep wound culture: staph aureus -Soft tissue path: Adipose tissue with foci of necrosis, acute inflammation and granulation tissue reaction ID consulted - continue Ancef IV 2g q8h -Patient will require 6 weeks abx (Cefazolin) for LLE cellulitis, wound cx + MSSA per Dr. Hernandez Continue wound care - QOD Iodosorb + lidocaine jelly, DSD Pain management - Lidoderm TD, Tylenol 650mg PO Plan for graft application + delayed wound closure afternoon Podiatry will continue to follow while in house
[2018-02-11] MEDS: Lidocaine 5% Patch TD SCH (08:31)
[2018-02-11] MEDS: Enoxaparin 120 mg Syringe SC SCH ×2 (08:33→22:23)
[2018-02-11] MEDS: Pantoprazole 40 mg EC Tab PO SCH (08:34)
[2018-02-11] MEDS: Lidocaine 2% GEL TOP SCH (08:35)
--- NOTE | 2018-02-11 21:42 | CP.PCM.PN ---
Objective - Vital Signs/Intake and Output Vital Signs (last 24 hours): Temp Pulse Resp BP Pulse Ox 97.0 F L 84 20 111/74 97 02/11/18 20:54 02/11/18 20:54 02/11/18 20:54 02/11/18 20:54 02/11/18 20:54 - Medications Medications: Current Medications Acetaminophen (Tylenol 325mg Tab) 650 mg PO Q4 PRN PRN Reason: Pain, Mild (1-3) Last Admin: 02/11/18 12:22 Dose: 650 mg Bisacodyl (Dulcolax) 5 mg PO DAILY PRN PRN Reason: Constipation Cadexomer Iodine (Iodosorb 0.9%) 1 applic TOP QOTHERDAY [facility] Last Admin: 02/10/18 08:40 Dose: 1 applic Diphenhydramine HCl (Benadryl) 25 mg PO Q6 PRN PRN Reason: Itching / Pruritus Last Admin: 02/11/18 08:41 Dose: 25 mg Enoxaparin Sodium (Lovenox) 110 mg SC Q12 [facility]EL[facility] PRN Reason: Protocol Hydrochlorothiazide (Microzide) 12.5 mg PO DAILY [facility] Last Admin: 02/11/18 08:36 Dose: 12.5 mg Cefazolin Sodium/Dextrose (Ancef Iv 2 Gm Duplex) 2 gm in 50 mls @ 50 mls/hr IVPB Q8 [facility]ELLE PRN Reason: Protocol Last Admin: 02/11/18 16:44 Dose: 50 mls/hr Insulin Human Regular (Humulin R) 0 units SC ACHS [facility] PRN Reason: Protocol Last Admin: 02/11/18 16:43 Dose: Not Given Ketoconazole (Nizoral) 1 applic TOP BID [facility] Last Admin: 02/11/18 16:44 Dose: Not Given Lactulose (Enulose) 10 gm PO DAILY PRN PRN Reason: Constipation Levothyroxine Sodium (Synthroid) 25 mcg PO DAILY@0630 [facility] Last Admin: 02/11/18 06:55 Dose: 25 mcg Lidocaine (Lidoderm) 1 ea TD DAILY [facility] Last Admin: 02/11/18 08:31 Dose: 1 ea Lidocaine HCl (Xylocaine 2%) 1 applic TOP DAILY [facility] Last Admin: 02/11/18 08:35 Dose: Not Given Multivitamins/Minerals (Therapeutic-M Tab) 1 tab PO HS [facility] Last Admin: 02/10/18 21:00 Dose: 1 tab Oxycodone/Acetaminophen (Percocet 5/325 Mg Tab) 1 tab PO Q6 PRN PRN Reason: Pain, severe (8-10) Stop: 02/14/18 15:47 Pantoprazole Sodium (Protonix Ec Tab) 40 mg PO DAILY [facility] Last Admin: 02/11/18 08:34 Dose: 40 mg Repaglinide (Prandin) 2 mg PO TID@0730,1130,1630 [facility] Last Admin: 02/11/18 16:44 Dose: 2 mg Senna/Docusate Sodium (Senokot S 50 Mg-8.6 Mg) 2 tab PO HS [facility] Last Admin: 02/10/18 21:00 Dose: 2 tab Valsartan (Diovan) 160 mg PO DAILY [facility] Last Admin: 02/11/18 08:33 Dose: 160 mg Zolpidem Tartrate (Ambien) 5 mg PO HS PRN PRN Reason: Insomnia
[2018-02-11] MEDS: Docusate-Senna 50 mg-8.6 mg Tab PO SCH (22:44)
[2018-02-11] MEDS: Multivitamin With Minerals Tab PO SCH (22:45)
[2018-02-12] MEDS: ceFAZolin IV 2 gm in Dextrose 2 GM/50 ML BAG IVPB SCH ×3 (00:27→16:57)
[2018-02-12] MEDS: Oxycodone/Acetaminophen 5/325 mg Tab PO PRN ×2 (03:56→10:52)
[2018-02-12] MEDS: Levothyroxine 25 MCG TAB PO SCH (06:24)
[2018-02-12 06:43] LABS: MEAN CELL VOLUME 87.7 fl (81.0-99.0); MEAN CORPUSCULAR HEMOGLOBIN 30.1 pg (27.0-31.0); MEAN CORPUSCULAR HGB CONC 34.4 g/dL (33.0-37.0); PARTIAL THROMBOPLASTIN TIME 37.3 Seconds (25.6-37.1); PROTHROMBIN TIME 11.3 Seconds (9.8-13.1); RBC 3.97 Mil/uL (3.80-5.20); RED CELL DISTRIBUTION WIDTH 13.9 % (11.5-14.5); WHITE BLOOD COUNT 8.1 K/uL (4.8-10.8)
[2018-02-12 07:10] LABS: BLOOD UREA NITROGEN 17 mg/dl (7-17); CALCIUM 9.3 mg/dL (8.4-10.2); GFR AFRICAN-AMERICAN > 60; GFR NON-AFRICAN AMERICAN > 60
--- NOTE | 2018-02-12 07:32 | CP.PCM.PN ---
Subjective - Date & Time of Evaluation Date of Evaluation: 02/12/18 Time of Evaluation: 07:32 - Subjective Subjective: Podiatry Progress Note - Dr. Estevez 48 year old female patient seen and evaluated for infected surgical wound left ankle, POD#7 L foot I&D. Patient hemodynamically stable and NAD. No acute events overnight. Minimal pain to left ankle. Patient complains of foot swelling, which has increased more since yesterday. Multipodus boot absent to LLE. Patient aware she is scheduled for surgery tomorrow afternoon. Denies N/V/F /D/C/SOB/calf pain. Offers no other complaints. Objective - Vital Signs/Intake and Output Vital Signs (last 24 hours): Temp Pulse Resp BP Pulse Ox 97.0 F L 84 20 111/74 97 02/11/18 20:54 02/11/18 20:54 02/11/18 20:54 02/11/18 20:54 02/11/18 20:54 - Medications Medications: Current Medications Acetaminophen (Tylenol 325mg Tab) 650 mg PO Q4 PRN PRN Reason: Pain, Mild (1-3) Last Admin: 02/11/18 12:22 Dose: 650 mg Bisacodyl (Dulcolax) 5 mg PO DAILY PRN PRN Reason: Constipation Cadexomer Iodine (Iodosorb 0.9%) 1 applic TOP QOTHERDAY [facility] Last Admin: 02/10/18 08:40 Dose: 1 applic Diphenhydramine HCl (Benadryl) 25 mg PO Q6 PRN PRN Reason: Itching / Pruritus Last Admin: 02/11/18 22:23 Dose: 25 mg Enoxaparin Sodium (Lovenox) 110 mg SC Q12 [facility]EL[facility] PRN Reason: Protocol Last Admin: 02/11/18 22:23 Dose: 110 mg Hydrochlorothiazide (Microzide) 12.5 mg PO DAILY [facility] Last Admin: 02/11/18 08:36 Dose: 12.5 mg Cefazolin Sodium/Dextrose (Ancef Iv 2 Gm Duplex) 2 gm in 50 mls @ 50 mls/hr IVPB Q8 NOELLE PRN Reason: Protocol Last Admin: 02/12/18 00:27 Dose: 50 mls/hr Insulin Human Regular (Humulin R) 0 units SC ACHS [facility] PRN Reason: Protocol Last Admin: 02/11/18 22:25 Dose: Not Given Ketoconazole (Nizoral) 1 applic TOP BID [facility] Last Admin: 02/11/18 16:44 Dose: Not Given Lactulose (Enulose) 10 gm PO DAILY PRN PRN Reason: Constipation Levothyroxine Sodium (Synthroid) 25 mcg PO DAILY@0630 [facility] Last Admin: 02/12/18 06:24 Dose: 25 mcg Lidocaine (Lidoderm) 1 ea TD DAILY [facility] Last Admin: 02/11/18 08:31 Dose: 1 ea Lidocaine HCl (Xylocaine 2%) 1 applic TOP DAILY [facility] Last Admin: 02/11/18 08:35 Dose: Not Given Multivitamins/Minerals (Therapeutic-M Tab) 1 tab PO HS [facility] Last Admin: 02/11/18 22:45 Dose: 1 tab Oxycodone/Acetaminophen (Percocet 5/325 Mg Tab) 1 tab PO Q6 PRN PRN Reason: Pain, severe (8-10) Stop: 02/14/18 15:47 Last Admin: 02/12/18 03:56 Dose: 1 tab Pantoprazole Sodium (Protonix Ec Tab) 40 mg PO DAILY [facility] Last Admin: 02/11/18 08:34 Dose: 40 mg Repaglinide (Prandin) 2 mg PO TID@0730,1130,1630 [facility] Last Admin: 02/11/18 16:44 Dose: 2 mg Senna/Docusate Sodium (Senokot S 50 Mg-8.6 Mg) 2 tab PO HS [facility] Last Admin: 02/11/18 22:44 Dose: 2 tab Valsartan (Diovan) 160 mg PO DAILY [facility] Last Admin: 02/11/18 08:33 Dose: 160 mg Zolpidem Tartrate (Ambien) 5 mg PO HS PRN PRN Reason: Insomnia Last Admin: 02/11/18 22:43 Dose: 5 mg - Labs Labs: 02/12/18 05:50 02/12/18 05:50 PT 11.3 Seconds (9.8-13.1) 02/12/18 05:50 INR 1.0 (0.9-1.2) 02/12/18 05:50 APTT 37.3 Seconds (25.6-37.1) H 02/12/18 05:50 - Constitutional Appears: Well, Non-toxic, No Acute Distress - Extremities Exam Additional comments: Dressing to LLE appears clean/dry/intact with no strikethrough noted. NVSI to left digits 1-5 +1 pitting edema noted to dorsum of forefoot and digits - Neurological Exam Neurological Exam: Alert, Awake, Oriented x3 - Psychiatric Exam Psychiatric exam: Normal Affect, Normal Mood Assessment and Plan - Assessment and Plan (Free Text) Assessment: 48 year old female with 1) infected surgical wound left ankle, improving 2) LLE DVT within superficial femoral and popliteal veins POD#7 Incision and drainage of left foot wound with removal of all non-viable soft tissue Plan: Patient seen and evaluated Discussed with attending, Dr. Estevez Labs and vitals reviewed - afebrile, WBC 8.1 LLE venous duplex (02/01/18): DVT within superficial femoral and popliteal veins Chest CT ordered r/o PE (02/01/18): Limited study due to suboptimal opacification and large body habitus demonstrating no acute central pulmonary embolus; no acute consolidation, mild atelectasis both posterior lower lung zones LLE MRI (02/03/18): Possible abscess collection medial aspect of mid/posterior calcaneus measuring 1.1 x 0.7 x 2.0cm, extends into posterior tarsal tunnel. LLE arterial duplex (02/04/18): awaiting report Therapeutic Lovenox 110mc SC Q12H; DVT management per primary team Left ankle WCx - staphylococcus aureus -Deep wound culture: staph aureus -Soft tissue path: Adipose tissue with foci of necrosis, acute inflammation and granulation tissue reaction ID consulted - continue Ancef IV 2g q8h -Patient will require 6 weeks abx (Cefazolin) for LLE cellulitis, wound cx + MSSA per Dr. Hernandez Continue wound care - QOD Iodosorb + lidocaine jelly, DSD Pain management - Lidoderm TD, Tylenol 650mg PO, Percocet 1 tab PO Plan for graft application + delayed wound closure tomorrow afternoon @ 4PM -NPO after breakfast tomorrow Podiatry will continue to follow while in house
[2018-02-12] MEDS: Enoxaparin 120 mg Syringe SC SCH ×2 (08:37→22:05)
[2018-02-12] MEDS: Insulin Regular 100 units/ml SC SCH ×4 (08:46→22:07)
[2018-02-12] MEDS: Lidocaine 5% Patch TD SCH (09:09)
[2018-02-12] MEDS: Pantoprazole 40 mg EC Tab PO SCH (09:09)
[2018-02-12] MEDS: CADEXOMER IODINE TOP SCH (09:11)
[2018-02-12] MEDS: Lidocaine 2% GEL TOP SCH (09:11)
--- NOTE | 2018-02-12 13:36 | CP.PCM.PN ---
Subjective - Date & Time of Evaluation Date of Evaluation: 02/12/18 Time of Evaluation: 08:00 - Subjective Subjective: c/o swelling left foot for or am cont iv antibiotics Objective - Vital Signs/Intake and Output Vital Signs (last 24 hours): Temp Pulse Resp BP Pulse Ox 97.9 F 85 20 98/67 L 97 02/12/18 09:23 02/12/18 09:23 02/12/18 09:23 02/12/18 09:23 02/12/18 09:23 - Medications Medications: Current Medications Acetaminophen (Tylenol 325mg Tab) 650 mg PO Q4 PRN PRN Reason: Pain, Mild (1-3) Last Admin: 02/11/18 12:22 Dose: 650 mg Bisacodyl (Dulcolax) 5 mg PO DAILY PRN PRN Reason: Constipation Cadexomer Iodine (Iodosorb 0.9%) 1 applic TOP QOTHERDAY [facility] Last Admin: 02/12/18 09:11 Dose: Not Given Diphenhydramine HCl (Benadryl) 25 mg PO Q6 PRN PRN Reason: Itching / Pruritus Last Admin: 02/11/18 22:23 Dose: 25 mg Enoxaparin Sodium (Lovenox) 110 mg SC Q12 [facility] PRN Reason: Protocol Last Admin: 02/12/18 08:37 Dose: 110 mg Hydrochlorothiazide (Microzide) 12.5 mg PO DAILY [facility] Last Admin: 02/12/18 09:09 Dose: 12.5 mg Cefazolin Sodium/Dextrose (Ancef Iv 2 Gm Duplex) 2 gm in 50 mls @ 50 mls/hr IVPB Q8 [facility] PRN Reason: Protocol Last Admin: 02/12/18 08:32 Dose: 50 mls/hr Insulin Human Regular (Humulin R) 0 units SC ACHS [facility] PRN Reason: Protocol Last Admin: 02/12/18 12:22 Dose: 2 unit Ketoconazole (Nizoral) 1 applic TOP BID [facility] Last Admin: 02/12/18 09:10 Dose: Not Given Lactulose (Enulose) 10 gm PO DAILY PRN PRN Reason: Constipation Levothyroxine Sodium (Synthroid) 25 mcg PO DAILY@0630 [facility] Last Admin: 02/12/18 06:24 Dose: 25 mcg Lidocaine (Lidoderm) 1 ea TD DAILY [facility] Last Admin: 02/12/18 09:09 Dose: 1 ea Lidocaine HCl (Xylocaine 2%) 1 applic TOP DAILY [facility] Last Admin: 02/12/18 09:11 Dose: Not Given Multivitamins/Minerals (Therapeutic-M Tab) 1 tab PO HS [facility] Last Admin: 02/11/18 22:45 Dose: 1 tab Oxycodone/Acetaminophen (Percocet 5/325 Mg Tab) 1 tab PO Q6 PRN PRN Reason: Pain, severe (8-10) Stop: 02/14/18 15:47 Last Admin: 02/12/18 10:52 Dose: 1 tab Pantoprazole Sodium (Protonix Ec Tab) 40 mg PO DAILY [facility] Last Admin: 02/12/18 09:09 Dose: 40 mg Repaglinide (Prandin) 2 mg PO TID@0730,1130,1630 [facility] Last Admin: 02/12/18 12:22 Dose: 2 mg Senna/Docusate Sodium (Senokot S 50 Mg-8.6 Mg) 2 tab PO HS [facility] Last Admin: 02/11/18 22:44 Dose: 2 tab Valsartan (Diovan) 160 mg PO DAILY [facility] Last Admin: 02/12/18 08:33 Dose: 160 mg Zolpidem Tartrate (Ambien) 5 mg PO HS PRN PRN Reason: Insomnia Last Admin: 02/11/18 22:43 Dose: 5 mg - Labs Labs: 02/12/18 05:50 02/12/18 05:50 PT 11.3 Seconds (9.8-13.1) 02/12/18 05:50 INR 1.0 (0.9-1.2) 02/12/18 05:50 APTT 37.3 Seconds (25.6-37.1) H 02/12/18 05:50 - Constitutional Appears: Non-toxic, Chronically Ill - Head Exam Head Exam: NORMOCEPHALIC - Eye Exam Eye Exam: PERRL - ENT Exam ENT Exam: Mucous Membranes Dry - Neck Exam Neck Exam: absent: Lymphadenopathy - Respiratory Exam Respiratory Exam: Decreased Breath Sounds - Cardiovascular Exam Cardiovascular Exam: REGULAR RHYTHM - GI/Abdominal Exam GI & Abdominal Exam: Distended - Rectal Exam Rectal Exam: Deferred - Exam Exam: NORMAL INSPECTION - Extremities Exam Extremities Exam: Pedal Edema. absent: Calf Tenderness, Tenderness - Back Exam Back Exam: absent: CVA tenderness (L), CVA tenderness (R) - Neurological Exam Neurological Exam: Alert, Awake, Oriented x3 - Psychiatric Exam Psychiatric exam: Normal Mood - Skin Skin Exam: Dry Assessment and Plan - Assessment and Plan (Free Text) Assessment: cont rx OM left ankle
[2018-02-12 19:49] VITALS: O2SAT 99
[2018-02-12] MEDS: Multivitamin With Minerals Tab PO SCH (22:05)
[2018-02-12] MEDS: Docusate-Senna 50 mg-8.6 mg Tab PO SCH (22:06)
--- NOTE | 2018-02-12 22:06 | CP.PCM.PN ---
Objective - Vital Signs/Intake and Output Vital Signs (last 24 hours): Temp Pulse Resp BP Pulse Ox 98.4 F 79 20 100/62 99 02/12/18 19:49 02/12/18 19:49 02/12/18 19:49 02/12/18 19:49 02/12/18 19:49 - Medications Medications: Current Medications Acetaminophen (Tylenol 325mg Tab) 650 mg PO Q4 PRN PRN Reason: Pain, Mild (1-3) Last Admin: 02/11/18 12:22 Dose: 650 mg Bisacodyl (Dulcolax) 5 mg PO DAILY PRN PRN Reason: Constipation Cadexomer Iodine (Iodosorb 0.9%) 1 applic TOP QOTHERDAY [facility] Last Admin: 02/12/18 09:11 Dose: Not Given Diphenhydramine HCl (Benadryl) 25 mg PO Q6 PRN PRN Reason: Itching / Pruritus Last Admin: 02/11/18 22:23 Dose: 25 mg Enoxaparin Sodium (Lovenox) 110 mg SC Q12 [facility] PRN Reason: Protocol Last Admin: 02/12/18 08:37 Dose: 110 mg Hydrochlorothiazide (Microzide) 12.5 mg PO DAILY [facility] Last Admin: 02/12/18 09:09 Dose: 12.5 mg Cefazolin Sodium/Dextrose (Ancef Iv 2 Gm Duplex) 2 gm in 50 mls @ 50 mls/hr IVPB Q8 [facility] PRN Reason: Protocol Last Admin: 02/12/18 16:57 Dose: 50 mls/hr Insulin Human Regular (Humulin R) 0 units SC ACHS [facility] PRN Reason: Protocol Last Admin: 02/12/18 16:58 Dose: Not Given Ketoconazole (Nizoral) 1 applic TOP BID [facility] Last Admin: 02/12/18 16:58 Dose: Not Given Lactulose (Enulose) 10 gm PO DAILY PRN PRN Reason: Constipation Levothyroxine Sodium (Synthroid) 25 mcg PO DAILY@0630 [facility] Last Admin: 02/12/18 06:24 Dose: 25 mcg Lidocaine (Lidoderm) 1 ea TD DAILY [facility] Last Admin: 02/12/18 09:09 Dose: 1 ea Lidocaine HCl (Xylocaine 2%) 1 applic TOP DAILY [facility] Last Admin: 02/12/18 09:11 Dose: Not Given Multivitamins/Minerals (Therapeutic-M Tab) 1 tab PO HS [facility] Last Admin: 02/11/18 22:45 Dose: 1 tab Oxycodone/Acetaminophen (Percocet 5/325 Mg Tab) 1 tab PO Q6 PRN PRN Reason: Pain, severe (8-10) Stop: 02/14/18 15:47 Last Admin: 02/12/18 10:52 Dose: 1 tab Pantoprazole Sodium (Protonix Ec Tab) 40 mg PO DAILY [facility] Last Admin: 02/12/18 09:09 Dose: 40 mg Repaglinide (Prandin) 2 mg PO TID@0730,1130,1630 [facility] Last Admin: 02/12/18 16:58 Dose: 2 mg Senna/Docusate Sodium (Senokot S 50 Mg-8.6 Mg) 2 tab PO HS [facility] Last Admin: 02/11/18 22:44 Dose: 2 tab Valsartan (Diovan) 160 mg PO DAILY [facility] Last Admin: 02/12/18 08:33 Dose: 160 mg Zolpidem Tartrate (Ambien) 5 mg PO HS PRN PRN Reason: Insomnia Last Admin: 02/11/18 22:43 Dose: 5 mg - Labs Labs: 02/12/18 05:50 02/12/18 05:50 PT 11.3 Seconds (9.8-13.1) 02/12/18 05:50 INR 1.0 (0.9-1.2) 02/12/18 05:50 APTT 37.3 Seconds (25.6-37.1) H 02/12/18 05:50
[2018-02-13] MEDS: ceFAZolin IV 2 gm in Dextrose 2 GM/50 ML BAG IVPB SCH ×2 (01:14→08:40)
[2018-02-13] MEDS: Oxycodone/Acetaminophen 5/325 mg Tab PO PRN (04:19)
[2018-02-13] MEDS: Levothyroxine 25 MCG TAB PO SCH (06:28)
--- NOTE | 2018-02-13 07:27 | CP.PCM.PN ---
Subjective - Date & Time of Evaluation Date of Evaluation: 02/13/18 Time of Evaluation: 07:27 - Subjective Subjective: Podiatry Progress Note - Dr. Estevez 48 year old female patient seen and evaluated for infected surgical wound left ankle, POD#8 L foot I&D. Patient hemodynamically stable and NAD. No acute events overnight. Minimal pain to left ankle, well-controlled. Multipodus boot present to LLE. Patient states the swelling in her left foot has decreased since removal of ROBIN wrap and change of antibiotics. Patient aware she is scheduled for surgery this afternoon, and will be NPO after breakfast. Denies N/ V/F/D/C/SOB/calf pain. Offers no other complaints. Objective - Vital Signs/Intake and Output Vital Signs (last 24 hours): Temp Pulse Resp BP Pulse Ox 98.4 F 79 20 100/62 99 02/12/18 19:49 02/12/18 19:49 02/12/18 19:49 02/12/18 19:49 02/12/18 19:49 - Medications Medications: Current Medications Acetaminophen (Tylenol 325mg Tab) 650 mg PO Q4 PRN PRN Reason: Pain, Mild (1-3) Last Admin: 02/11/18 12:22 Dose: 650 mg Bisacodyl (Dulcolax) 5 mg PO DAILY PRN PRN Reason: Constipation Cadexomer Iodine (Iodosorb 0.9%) 1 applic TOP QOTHERDAY [facility] Last Admin: 02/12/18 09:11 Dose: Not Given Diphenhydramine HCl (Benadryl) 25 mg PO Q6 PRN PRN Reason: Itching / Pruritus Last Admin: 02/11/18 22:23 Dose: 25 mg Enoxaparin Sodium (Lovenox) 110 mg SC Q12 [facility] PRN Reason: Protocol Last Admin: 02/12/18 22:05 Dose: 110 mg Hydrochlorothiazide (Microzide) 12.5 mg PO DAILY [facility] Last Admin: 02/12/18 09:09 Dose: 12.5 mg Cefazolin Sodium/Dextrose (Ancef Iv 2 Gm Duplex) 2 gm in 50 mls @ 50 mls/hr IVPB Q8 [facility] PRN Reason: Protocol Last Admin: 02/13/18 01:14 Dose: 50 mls/hr Insulin Human Regular (Humulin R) 0 units SC ACHS [facility] PRN Reason: Protocol Last Admin: 02/12/18 22:07 Dose: Not Given Ketoconazole (Nizoral) 1 applic TOP BID [facility] Last Admin: 02/12/18 16:58 Dose: Not Given Lactulose (Enulose) 10 gm PO DAILY PRN PRN Reason: Constipation Levothyroxine Sodium (Synthroid) 25 mcg PO DAILY@0630 [facility] Last Admin: 02/13/18 06:28 Dose: 25 mcg Lidocaine (Lidoderm) 1 ea TD DAILY [facility] Last Admin: 02/12/18 09:09 Dose: 1 ea Lidocaine HCl (Xylocaine 2%) 1 applic TOP DAILY [facility] Last Admin: 02/12/18 09:11 Dose: Not Given Multivitamins/Minerals (Therapeutic-M Tab) 1 tab PO HS [facility] Last Admin: 02/12/18 22:05 Dose: 1 tab Oxycodone/Acetaminophen (Percocet 5/325 Mg Tab) 1 tab PO Q6 PRN PRN Reason: Pain, severe (8-10) Stop: 02/14/18 15:47 Last Admin: 02/13/18 04:19 Dose: 1 tab Pantoprazole Sodium (Protonix Ec Tab) 40 mg PO DAILY [facility] Last Admin: 02/12/18 09:09 Dose: 40 mg Repaglinide (Prandin) 2 mg PO TID@0730,1130,1630 [facility] Last Admin: 02/12/18 16:58 Dose: 2 mg Senna/Docusate Sodium (Senokot S 50 Mg-8.6 Mg) 2 tab PO HS [facility] Last Admin: 02/12/18 22:06 Dose: 2 tab Valsartan (Diovan) 160 mg PO DAILY [facility] Last Admin: 02/12/18 08:33 Dose: 160 mg Zolpidem Tartrate (Ambien) 5 mg PO HS PRN PRN Reason: Insomnia Last Admin: 02/12/18 22:12 Dose: 5 mg - Labs Labs: 02/12/18 05:50 02/12/18 05:50 PT 11.3 Seconds (9.8-13.1) 02/12/18 05:50 INR 1.0 (0.9-1.2) 02/12/18 05:50 APTT 37.3 Seconds (25.6-37.1) H 02/12/18 05:50 - Constitutional Appears: Well, Non-toxic, No Acute Distress - Extremities Exam Additional comments: Dressing to LLE appears clean/dry/intact with no strikethrough noted. NVSI to left digits 1-5 +1 pitting edema noted to dorsum of forefoot and digits - Neurological Exam Neurological Exam: Alert, Awake, Oriented x3 - Psychiatric Exam Psychiatric exam: Normal Affect, Normal Mood Assessment and Plan - Assessment and Plan (Free Text) Assessment: 48 year old female with 1) infected surgical wound left ankle, improving 2) LLE DVT within superficial femoral and popliteal veins POD#8 Incision and drainage of left foot wound with removal of all non-viable soft tissue Plan: Patient seen and evaluated Discussed with attending, Dr. Estevez Labs and vitals reviewed - afebrile LLE venous duplex (02/01/18): DVT within superficial femoral and popliteal veins Chest CT ordered r/o PE (02/01/18): Limited study due to suboptimal opacification and large body habitus demonstrating no acute central pulmonary embolus; no acute consolidation, mild atelectasis both posterior lower lung zones LLE MRI (02/03/18): Possible abscess collection medial aspect of mid/posterior calcaneus measuring 1.1 x 0.7 x 2.0cm, extends into posterior tarsal tunnel. LLE arterial duplex (02/04/18): awaiting report Therapeutic Lovenox 110mc SC Q12H; DVT management per primary team Left ankle WCx - staphylococcus aureus -Deep wound culture: staph aureus -Soft tissue path: Adipose tissue with foci of necrosis, acute inflammation and granulation tissue reaction ID consulted - continue Ancef IV 2g q8h (last dose 08:40AM) -Patient will require 6 weeks abx (Cefazolin) for LLE cellulitis, wound cx + MSSA per Dr. Hernandez Continue wound care - QOD Iodosorb + lidocaine jelly, DSD Pain management - Lidoderm TD, Tylenol 650mg PO, Percocet 1 tab PO Plan for graft application + delayed wound closure today @ 4PM -NPO after breakfast -Anticoagulants still active Podiatry will continue to follow while in house
[2018-02-13] MEDS: Insulin Regular 100 units/ml SC SCH ×2 (07:50→11:23)
[2018-02-13 08:02] VITALS: BP 99/60; PULSE 83; TEMP 97.3
[2018-02-13] MEDS: Enoxaparin 120 mg Syringe SC SCH (08:34)
[2018-02-13] MEDS: Pantoprazole 40 mg EC Tab PO SCH (08:35)
[2018-02-13] MEDS: Lidocaine 5% Patch TD SCH (08:35)
[2018-02-13] MEDS: Lidocaine 2% GEL TOP SCH (08:37)
== END 2018-02-13 15:00 | disposition home or self-care (01) | DRG 294 ==
LOC: H.TCU 02:11
PROVIDERS: ADMIT Internal Medicine; ATTEND Internal Medicine
PROC: F08Z1FZ Dressing Techniques Treatment using Assistive, Adaptive, Supportive or Protective Equipment (ICD-10-PCS; principal; 2018-02-08)
PROC: F07Z9FZ Gait Training/Functional Ambulation Treatment using Assistive, Adaptive, Supportive or Protective Equipment (ICD-10-PCS; 2018-02-08)
PROC: F07L6FZ Therapeutic Exercise Treatment of Musculoskeletal System - Lower Back / Lower Extremity using Assistive, Adaptive, Supportive or Protective Equipment (ICD-10-PCS; 2018-02-08)
PROC: 3E0234Z Introduction of Serum, Toxoid and Vaccine into Muscle, Percutaneous Approach (ICD-10-PCS; 2018-02-11)
DX: E11.69 Type 2 diabetes mellitus with other specified complication (principal); M86.9 Osteomyelitis, unspecified; I82.412 Acute embolism and thrombosis of left femoral vein; B49 Unspecified mycosis; E66.01 Morbid (severe) obesity due to excess calories; L03.116 Cellulitis of left lower limb; Z68.41 Body mass index [BMI] 40.0-44.9, adult; I82.432 Acute embolism and thrombosis of left popliteal vein; B95.61 Methicillin susceptible Staphylococcus aureus infection as the cause of diseases classified elsewhere; Z91.19 Patient's noncompliance with other medical treatment and regimen; I10 Essential (primary) hypertension; E78.00 Pure hypercholesterolemia, unspecified; Z23 Encounter for immunization

== ENCOUNTER 2018-02-13 15:38 | Inpatient (IN) | payer MEDICAID ==
[2018-02-13] MEDS ORDERED: Bacitracin Ointment 30 GM TUBE ONE (16:09)
[2018-02-13] MEDS ORDERED: Bupivacaine 0.5% Inj(30mL) ONE (16:09)
[2018-02-13] MEDS ORDERED: Lidocaine 1% Inj (20ml) ONE (16:09)
[2018-02-13] MEDS ORDERED: Mineral Oil Light Sterile 25 ml ONE (16:10)
--- NOTE | 2018-02-13 16:23 | CP.PCM.PN ---
Subjective - Date & Time of Evaluation Date of Evaluation: 02/13/18 Time of Evaluation: 16:23 - Subjective Subjective: 48F patient seen and evaluated in [facility] for delayed wound closure with graft application by Dr. Estevez. Patient recently had I&D of left ankle wound on and has been getting treated with IV abx. Patient is now scheduled for this planned second surgery to left ankle wound. Patient reports continued moderate pain to the inside of her left ankle. Denies N/V/F/D/C/SOB. NPO confirmed. Objective - Vital Signs/Intake and Output Vital Signs (last 24 hours): Temp Pulse Resp BP Pulse Ox 98.4 F 84 18 100/65 97 02/13/18 16:00 02/13/18 16:00 02/13/18 16:00 02/13/18 16:00 02/13/18 16:00 Intake and Output: 02/13/18 02/13/18 06:59 18:59 Intake Total 0 Balance 0 - Constitutional Appears: Well, Non-toxic, No Acute Distress - Extremities Exam Additional comments: Dressing to LLE clean/dry/intact with no strikethrough noted NVSI to digits x5 +1 pitting edema noted to dorsum of foot - Neurological Exam Neurological Exam: Alert, Awake, Oriented x3 - Psychiatric Exam Psychiatric exam: Normal Affect, Normal Mood Assessment and Plan - Assessment and Plan (Free Text) Assessment: 48F with left ankle surgical wound dehiscence Plan: Pt was seen and examined in [facility] Pt NPO status was confirmed All Pre-op testing and clearance was in the chart Pt has exhausted all conservative treatment at this time and is opting for surgical intervention Pt was explained procedure and post-operative course All pt's questions were answered to satisfaction No guarantees were made Pt understands all risks, benefits and complications of procedure Pt will follow-up with Dr. Estevez
--- NOTE | 2018-02-13 16:23 | CP.SDSHP ---
Same Day Surgery H & P - History Proposed Procedure: Left ankle delayed closure of wound with graft application Pre-Op Diagnosis: Left ankle wound dehiscence - Previous Medical/Surgical History Cardiac: Hypertension Endocrine/Metabolic: Diabetes Misc: Other (Hypercholesterolemia) Pain: 4.Moderate Pain Previous Surgical History: Left ankle tarsal tunnel release with removal of STM (11/20/17) - Allergies Allergies: Allergies piperacillin [From Zosyn] Allergy (Verified 02/08/18 07:51) RASH tazobactam [From Zosyn] Allergy (Verified 02/08/18 07:51) RASH - Physical Exam Vital Signs: Vital Signs 02/13/18 16:00 Temperature 98.4 F Pulse Rate 84 Respiratory 18 Rate Blood Pressure 100/65 O2 Sat by Pulse 97 Oximetry Mental Status: Alert & Oriented x3 Neuro: WNL Heart: WNL Lungs: WNL GI: WNL - {Optional Preform as Required} Integument: Other (Left medial ankle wound) - Impression Impression: Pt was seen and examined in [facility]. Pt NPO status was confirmed. All Pre-op testing and clearance was in the chart. Pt has exhausted all conservative treatment at this time and is opting for surgical intervention. Pt was explained procedure and post-operative course. All pt's questions were answered to satisfaction. No guarantees were made. Pt understands all risks, benefits and complications of procedure. Pt will follow-up with Dr. Estevez Pt. Evaluated Today:Candidate for Anesthesia & Procedure: Yes - Date & Time Date: 02/13/18 Time: 16:26 Short Stay Discharge - Short Stay Discharge Admitting Diagnosis/Reason for Visit: DELAYED WOUND CLOSURE OF THE LEFT ANKLE Disposition: TRANS TO OBS Referrals: Mustapha Estevez DPM [Staff Provider] - Follow-up: Follow up with Dr. Estevez in office Progress Note/Discharge Note with Instructions: Patient to be readmitted to Med/Surg
[2018-02-13] MEDS ORDERED: Lidocaine 4% (Laryng-O-Jet) Kit MM ONE (16:57)
[2018-02-13] MEDS ORDERED: Propofol 10 mg/ml Inj (20 ML) ONE (16:57)
[2018-02-13] MEDS ORDERED: Succinylcholine 200 mg/10 ml Inj IV ONE (16:57)
[2018-02-13] MEDS ORDERED: Rocuronium 10 mg/ml (5 ml) ONE (16:57)
[2018-02-13] MEDS ORDERED: Etomidate 20 mg/10ml Inj IV ONE (16:58)
[2018-02-13 17:16] VITALS: BMI 43.9
[2018-02-13] MEDS ORDERED: Lidocaine 1% Inj (20ml) IJ ONE (17:17)
[2018-02-13] MEDS ORDERED: Bupivacaine 0.5% Inj(30mL) IJ ONE (17:17)
[2018-02-13] MEDS ORDERED: ceFAZolin 2 GM in Sodium Chloride 0.9% 100 ML IVPB SCH (17:30)
[2018-02-13] MEDS ORDERED: Midazolam 2 MG/2 ML VIAL ONE (17:47)
[2018-02-13] MEDS ORDERED: Bupivacaine 0.5% 50 ML IJ ONE (18:29)
[2018-02-13] MEDS ORDERED: Mineral Oil Light Sterile 25 ml TP ONE (18:30)
[2018-02-13] MEDS ORDERED: ePHEDrine 50 mg/ml Inj ONE (18:48)
[2018-02-13] MEDS: HYDROmorphone 0.5 mg/0.5 ml ISec IVP PRN ×2 (19:00→19:15)
[2018-02-13] MEDS ORDERED: Oxycodone/Acetaminophen 5/325 mg Tab PO PRN (19:03)
--- NOTE | 2018-02-13 19:03 | PCM.SURG1 ---
Surgeon's Initial Post Op Note - Surgeon's Notes Surgeon: Dr. Estevez Debate Director: Dhaval Goodman PGY1 Type of Anesthesia: General Endo, Block Regional (Popliteal block) Anesthesia Administered By: Dr. Peace/Dr. Coffman Pre-Operative Diagnosis: Left ankle wound dehiscence Operative Findings: See operative report. Materials: Integra primatrix dermal scaffold, Integra flowable matrix, 3-0 nylon. Injectables: 0.5% marcaine plain 10cc Post-Operative Diagnosis: Same Operation Performed: Left ankle wound delayed closure with application of graft Specimen/Specimens Removed: none Estimated Blood Loss: EBL {In ML}: 1 Blood Products Given: N/A Drains Used: No Drains Post-Op Condition: Good Date of Surgery/Procedure: 02/13/18 Time of Surgery/Procedure: 19:02
[2018-02-13] MEDS ORDERED: HYDROmorphone 0.5 mg/0.5 ml ISec ONE (19:05)
[2018-02-13] MEDS ORDERED: Lactulose 10 gm/15 ml Syrup PO PRN (20:35)
[2018-02-13] MEDS ORDERED: Bisacodyl 5mg EC Tab PO PRN (20:35)
[2018-02-13] MEDS: Oxycodone/Acetaminophen 5/325 mg Tab PO PRN (20:56)
[2018-02-13] MEDS ORDERED: ceFAZolin IV 2 gm in Dextrose 2 GM/50 ML BAG IVPB SCH (21:00)
[2018-02-13] MEDS: Multivitamin With Minerals Tab PO SCH (21:12)
--- NOTE | 2018-02-13 21:37 | PCM.ANESB2 ---
Popliteal Nerve Block - Popliteal Nerve Block Date of Procedure: 02/13/18 Anesthesiologist: Nata Pre-Procedure Diagnosis: Wound dehiscence left ankle Post-Procedure Diagnosis: same Procedure Performed: Popliteal Nerve Block Left - Procedure Popliteal Nerve Block: This procedure was explained to the patient that it is for post-operative pain management. Consent was obtained after a thorough discussion with the patient regarding the benefits and possible complications of local anesthetic block of the sciatic nerve at the popliteal level. The patient was brought to the operating room and standard monitors are applied. Time-out was held with the circulating nurse to confirm the correct surgery and the appropriate block. Under general anesthesia, patient's operative leg was gently raised and supported and the groove in between the biceps femoris and vastus lateralis muscles was carefully palpated. The skin approximately 8cm above the popliteal crease was then marked. The ultrasound transducer was then applied to the posterior thigh approximately 8cm above the popliteal crease in the transverse plane and the sciatic nerve before its division was visualized lateral to the popliteal artery and in between the bicep femoris and semimembranosus/ semitendinosus muscles. After identification, the lateral portion of the thigh was prepped with Chloraprep. At this point, a # 21 gauge Stimuplex insulated 4 inch needle was inserted into pre-marked area and advanced in a perpendicular direction. The needle was inserted above the ultrasound transducer in-plane towards the sciatic nerve in a [id number] direction. Needle advancement was performed carefully under direct ultrasound visualization. Nerve stimulator was used and dorsiflexion of the __left___ foot was elicited at a current of _0.4____ MA. After repeated negative aspiration, _2____cc of __0.5___ % __bupivicaine with 1:200,000 epinephrine was injected and this was flowed with __18____ cc of __ __0.5__% ____bupivicaine with 1:200,000 epinephrine . Under ultrasound guidance the local anesthetics were observed surrounding sciatic nerve . The needle was removed intact and sterile dressing was applied. The patient tolerated the popliteal nerve block well with stable vital signs and was subsequently prepared for the surgery.
--- NOTE | 2018-02-13 21:39 | PCM.ANESB3 ---
Femoral Nerve Block - Femoral Nerve Block Date of Procedure: 02/13/18 Anesthesiologist: Nata Pre-Procedure Diagnosis: Wound dehiscence left ankle Post-Procedure Diagnosis: Same Procedure Performed: Femoral Nerve Block Left - Procedure Femoral Nerve Block: The procedure was explained to the patient that it is for the post-operative pain management. Consent was obtained after a thorough discussion with the patient regarding the benefits and possible complications of local anesthetic block of the femoral nerve at the inguinal crease area. The patient was brought to the operating room and standard monitors were applied. Time-out was held with the circulating nurse to confirm the correct surgery and the appropriate block. Under general anesthesia, patient was placed in supine position with fully extended lower extremities and the groin exposed. The femoral artery was then carefully palpated. The ultrasound transducer was then applied to this area in the transverse plane and the femoral nerve was visualized lateral to the femoral artery and underneath the fascia iliaca. After thorough identification, the inguinal crease area was prepped with Chloraprep. At this point, a #22 gauge Stimuplex 4-inch needle was inserted immediately lateral to the femoral artery pulse at the inguinal crease and advanced perpendicularly. The needle was inserted to the ultrasound transducer in-plane towards the femoral nerve in a [id number] direction. Needle advancement was performed carefully under direct ultrasound visualization. Nerve stimulator was used and twitch of the quadriceps muscle was obtained at current of __0.4___ MA. After negative aspiration, __2___cc of _0.25____% bupivicaine was injected and this was followed with ___8___ cc of __0.25 % __ bupivicaine . Under ultrasound guidance the local anesthetics were observed spreading below fascia iliaca and around the femoral nerve. The needle was removed intact and sterile dressing was applied. The patient tolerated the femoral nerve block well with stable vital signs and was prepared for subsequent surgery.
[2018-02-13] MEDS ORDERED: Docusate-Senna 50 mg-8.6 mg Tab PO SCH (22:00)
--- NOTE | 2018-02-13 22:17 | CP.PCM.HP ---
Past Patient History - Infectious Disease Hx of Infectious Diseases: None - Past Medical History & Family History Past Medical History?: Yes - Past Social History Smoking Status: Never Smoked - CARDIAC Hx Cardiac Disorders: Yes Hx Hypertension: Yes - PULMONARY Hx Respiratory Disorders: No Hx Asthma: No - NEUROLOGICAL Hx Neurological Disorder: Yes Other/Comment: TINGLING LEFT FOOT - HEENT Hx HEENT Problems: No - RENAL Hx Chronic Kidney Disease: No - ENDOCRINE/METABOLIC Hx Endocrine Disorders: Yes Hx Diabetes Mellitus Type 1: Yes Hx Diabetes Mellitus Type 2: Yes - HEMATOLOGICAL/ONCOLOGICAL Hx Blood Disorders: No Hx AIDS: No Hx Cancer: Yes (UTERINE) Hx Human Immunodeficiency Virus (HIV): No - INTEGUMENTARY Hx Dermatological Problems: No - MUSCULOSKELETAL/RHEUMATOLOGICAL Hx Musculoskeletal Disorders: Yes Hx Arthritis: Yes Hx Falls: No - GASTROINTESTINAL Hx Gastrointestinal Disorders: Yes Hx Gastritis: Yes Hx Gastroesophageal Reflux: Yes Other/Comment: gastric sleeve - GENITOURINARY/GYNECOLOGICAL Hx Genitourinary Disorders: No Hx Uterine Cancer: Yes - PSYCHIATRIC Hx Emotional Abuse: No Hx Physical Abuse: No - SURGICAL HISTORY Hx Surgeries: Yes Hx Cholecystectomy: Yes Hx Gastric Bypass Surgery: Yes (GASTRIC SLEEVE 05/25/2014) Hx Hysterectomy: Yes (JAN 2014) Hx Tonsillectomy: Yes (AGE 2) Other/Comment: LEFT EAR .GASTRIC SLEEVE MAY 2014 - ANESTHESIA Hx Anesthesia: Yes Hx Anesthesia Reactions: No Hx Malignant Hyperthermia: No Meds Allergies/Adverse Reactions: Allergies Allergy/AdvReac Type Severity Reaction Status Date / Time piperacillin [From Zosyn] Allergy RASH Verified 02/08/18 07:51 tazobactam [From Zosyn] Allergy RASH Verified 02/08/18 07:51 Results - Vital Signs Recent Vital Signs: Last Vital Signs Temp 98.2 F 02/13/18 20:15 Pulse 116 H 02/13/18 20:15 Resp 18 02/13/18 20:15 BP 107/59 L 02/13/18 20:15 Pulse Ox 96 02/13/18 20:15 - Labs Labs: Laboratory Results - last 24 hr 02/13/18 02/13/18 19:08 21:45 POC Glucose (mg/dL) 113 H 135 H
[2018-02-13] MEDS: Insulin Regular 100 units/ml SC SCH (23:51)
[2018-02-14] MEDS: Oxycodone/Acetaminophen 5/325 mg Tab PO PRN ×2 (03:38→08:55)
[2018-02-14] MEDS ORDERED: ceFAZolin 2 GM in Sodium Chloride 0.9% 100 ML IVPB SCH (05:00)
[2018-02-14] MEDS ORDERED: Levothyroxine 25 MCG TAB PO SCH (06:30)
[2018-02-14 06:56] LABS: ALBUMIN 3.4 g/dL (3.5-5.0); ALT/SGPT 43 U/L (9-52); AST/SGOT 27 U/L (14-36); BLOOD UREA NITROGEN 17 mg/dl (7-17); CALCIUM 9.4 mg/dL (8.4-10.2); GFR AFRICAN-AMERICAN > 60; GFR NON-AFRICAN AMERICAN > 60
--- NOTE | 2018-02-14 07:04 | CP.PCM.PN ---
Subjective - Date & Time of Evaluation Date of Evaluation: 02/14/18 Time of Evaluation: 07:04 - Subjective Subjective: Podiatry Progress Note - Dr. Estevez 48 year old female patient seen and evaluated for left ankle wound dehiscence, POD#8 L foot I&D and POD#1 L delayed closure of wound with graft application. Patient hemodynamically stable and NAD. No acute events overnight, was able to sleep well without any issues. Patient reports pain/soreness to left ankle, and believes states the pain is different from initial presentation in ED. Admits to continued swelling in her left forefoot. Multipodus boot absent to LLE. Denies N/V/F/D/C/SOB/calf pain. Offers no other complaints. Objective - Vital Signs/Intake and Output Vital Signs (last 24 hours): Temp Pulse Resp BP Pulse Ox 97.6 F 83 20 106/73 100 02/14/18 03:37 02/14/18 03:37 02/14/18 03:37 02/14/18 03:37 02/14/18 03:37 Intake and Output: 02/14/18 02/14/18 06:59 18:59 Intake Total 100 Balance 100 - Medications Medications: Current Medications Bisacodyl (Dulcolax) 5 mg PO DAILY PRN PRN Reason: Constipation Hydrochlorothiazide (Microzide) 12.5 mg PO DAILY [facility] Hydromorphone HCl (Dilaudid) 0.5 mg IVP Q15M PRN PRN Reason: Pain, moderate (4-7) Stop: 02/14/18 19:06 Last Admin: 02/13/18 19:15 Dose: 0.5 mg Cefazolin Sodium 2 gm/ Sodium (Chloride) 100 mls @ 100 mls/hr IVPB Q8@0500,1300 ,2100 [facility] PRN Reason: Protocol Last Admin: 02/14/18 05:33 Dose: 100 mls/hr Insulin Human Regular (Humulin R) 0 units SC ACCU-CHECK [facility] PRN Reason: Protocol Last Admin: 02/13/18 23:51 Dose: Not Given Lactulose (Enulose) 10 gm PO DAILY PRN PRN Reason: Constipation Levothyroxine Sodium (Synthroid) 25 mcg PO DAILY@0630 [facility] Last Admin: 02/14/18 05:33 Dose: 25 mcg Multivitamins/Minerals (Therapeutic-M Tab) 1 tab PO HS [facility] Last Admin: 02/13/18 21:12 Dose: Not Given Oxycodone/Acetaminophen (Percocet 5/325 Mg Tab) 1 tab PO Q4 PRN PRN Reason: Pain, moderate (4-7) Stop: 02/16/18 19:04 Oxycodone/Acetaminophen (Percocet 5/325 Mg Tab) 2 tab PO Q4 PRN PRN Reason: Pain, severe (8-10) Stop: 02/16/18 19:04 Last Admin: 02/14/18 03:38 Dose: 2 tab Repaglinide (Prandin) 2 mg PO TID [facility] Rivaroxaban (Xarelto) 15 mg PO BIDWM [facility] PRN Reason: Protocol Valsartan (Diovan) 160 mg PO DAILY [facility] Zolpidem Tartrate (Ambien) 5 mg PO HS PRN PRN Reason: Insomnia Last Admin: 02/14/18 01:54 Dose: 5 mg - Labs Labs: 02/14/18 05:25 - Constitutional Appears: Well, Non-toxic, No Acute Distress - Extremities Exam Additional comments: Dressing to LLE clean/dry/intact with no strikethrough noted - Neurological Exam Neurological Exam: Alert, Awake, Oriented x3 - Psychiatric Exam Psychiatric exam: Normal Affect, Normal Mood Assessment and Plan - Assessment and Plan (Free Text) Assessment: 48 year old female with 1) infected surgical wound left ankle, resolving POD#8 Incision and drainage of left foot wound with removal of all non-viable soft tissue (DOS 02/05/18) POD#1 Left foot delayed closure of wound with application of graft (DOS 02/13/18) Plan: Patient seen and evaluated with attending, Dr. Estevez Labs and vitals reviewed - afebrile, WBC WNL 6.5 LLE venous duplex (02/01/18): DVT within superficial femoral and popliteal veins Chest CT ordered r/o PE (02/01/18): Limited study due to suboptimal opacification and large body habitus demonstrating no acute central pulmonary embolus; no acute consolidation, mild atelectasis both posterior lower lung zones LLE MRI (02/03/18): Possible abscess collection medial aspect of mid/posterior calcaneus measuring 1.1 x 0.7 x 2.0cm, extends into posterior tarsal tunnel. LLE arterial duplex (02/04/18): awaiting report Left ankle WCx - staphylococcus aureus -Deep wound culture: staph aureus -Soft tissue path: Adipose tissue with foci of necrosis, acute inflammation and granulation tissue reaction ID consulted - continue Ancef IV 2g q8h -Patient will require 6 weeks abx (Cefazolin) for LLE cellulitis, wound cx + MSSA per Dr. Hernandez Continue Rivaroxaban 15mg PO BID Pain management - Lidoderm TD, Tylenol 650mg PO, Percocet 1-2 tab PO, Dilaudid 0.5mg IV Keep dressing clean/dry/intact until POD#6 Podiatry will continue to follow while in house
[2018-02-14] MEDS: Insulin Regular 100 units/ml SC SCH ×4 (07:30→23:12)
[2018-02-14 07:32] LABS: BASO % 0.4 % (0.0-2.0); EOS # 0.1 K/uL (0.0-0.7); EOS % 1.2 % (0.0-4.0); HEMOGLOBIN 11.9 g/dL (12.0-16.0); LYMPH # 2.2 K/uL (1.0-4.3); LYMPH % 34.5 % (20.0-40.0); MEAN CELL VOLUME 88.2 fl (81.0-99.0); MEAN CORPUSCULAR HEMOGLOBIN 30.4 pg (27.0-31.0); MEAN CORPUSCULAR HGB CONC 34.5 g/dL (33.0-37.0); MONO # 0.4 K/uL (0.0-0.8); MONO % 6.7 % (0.0-10.0); NEUT # 3.7 K/uL (1.8-7.0); NEUT % 57.2 % (50.0-75.0); NRBC % 0.2 % (0.0-0.0); RBC 3.92 Mil/uL (3.80-5.20); RED CELL DISTRIBUTION WIDTH 14.1 % (11.5-14.5); WHITE BLOOD COUNT 6.5 K/uL (4.8-10.8)
[2018-02-14] MEDS: ceFAZolin IV 2 gm in Dextrose 2 GM/50 ML BAG IVPB SCH ×2 (12:42→21:00)
--- NOTE | 2018-02-14 22:13 | CP.PCM.DIS ---
Provider - Provider Date of Admission: 02/13/18 19:39 Attending physician: Steve Shine MD Hospital Course - Lab Results Lab Results: Most Recent Lab Values WBC 6.5 K/uL (4.8-10.8) 02/14/18 05:25 RBC 3.92 Mil/uL (3.80-5.20) 02/14/18 05:25 Hgb 11.9 g/dL (12.0-16.0) L 02/14/18 05:25 Hct 34.6 % (34.0-47.0) 02/14/18 05:25 MCV 88.2 fl (81.0-99.0) 02/14/18 05:25 MCH 30.4 pg (27.0-31.0) 02/14/18 05:25 MCHC 34.5 g/dL (33.0-37.0) 02/14/18 05:25 RDW 14.1 % (11.5-14.5) 02/14/18 05:25 Plt Count 354 K/uL (130-400) 02/14/18 05:25 MPV 8.0 fl (7.2-11.7) 02/14/18 05:25 Neut % (Auto) 57.2 % (50.0-75.0) 02/14/18 05:25 Lymph % (Auto) 34.5 % (20.0-40.0) 02/14/18 05:25 Brewster % (Auto) 6.7 % (0.0-10.0) 02/14/18 05:25 Eos % (Auto) 1.2 % (0.0-4.0) 02/14/18 05:25 Baso % (Auto) 0.4 % (0.0-2.0) 02/14/18 05:25 Neut # (Auto) 3.7 K/uL (1.8-7.0) 02/14/18 05:25 Lymph # (Auto) 2.2 K/uL (1.0-4.3) 02/14/18 05:25 Brewster # (Auto) 0.4 K/uL (0.0-0.8) 02/14/18 05:25 Eos # (Auto) 0.1 K/uL (0.0-0.7) 02/14/18 05:25 Baso # (Auto) 0.0 K/uL (0.0-0.2) 02/14/18 05:25 Sodium 139 mmol/l (132-148) 02/14/18 05:25 Potassium 4.1 MMOL/L (3.6-5.0) 02/14/18 05:25 Chloride 98 mmol/L (98-107) 02/14/18 05:25 Carbon Dioxide 26 mmol/L (22-30) 02/14/18 05:25 Anion Gap 19 (10-20) 02/14/18 05:25 BUN 17 mg/dl (7-17) 02/14/18 05:25 Creatinine 0.8 mg/dl (0.7-1.2) 02/14/18 05:25 Est GFR ( Amer) > 60 02/14/18 05:25 Est GFR (Non-Af Amer) > 60 02/14/18 05:25 POC Glucose (mg/dL) 135 mg/dL (65-110) H 02/14/18 21:56 Random Glucose 119 mg/dL (65-105) H 02/14/18 05:25 Calcium 9.4 mg/dL (8.4-10.2) 02/14/18 05:25 Total Bilirubin 0.5 mg/dl (0.2-1.3) 02/14/18 05:25 AST 27 U/L (14-36) 02/14/18 05:25 ALT 43 U/L (9-52) 02/14/18 05:25 Alkaline Phosphatase 106 U/L (38-126) 02/14/18 05:25 Total Protein 6.8 G/DL (6.3-8.2) 02/14/18 05:25 Albumin 3.4 g/dL (3.5-5.0) L 02/14/18 05:25 Globulin 3.4 gm/dL (2.2-3.9) 02/14/18 05:25 Albumin/Globulin Ratio 1.0 (1.0-2.1) 02/14/18 05:25 Discharge Plan - Follow Up Plan Condition: GOOD Disposition: HOME/ ROUTINE Instructions: Cellulitis (Skin Infection), Adult (DC), Skin Graft (DC) Additional Instructions: no weight bearing to left foot. Follow up with Dr. Estevez Referrals: Mustapha Estevez DPM [Staff Provider] -
[2018-02-14 23:33] VITALS: BP 105/75; PULSE 91; RESP 18; TEMP 98.5; O2SAT 100
[2018-02-14] MEDS: Multivitamin With Minerals Tab PO SCH (23:37)
--- NOTE | 2018-02-17 08:41 | OP ---
PROCEDURE DATE: 02/13/2018 PREOPERATIVE DIAGNOSIS: Left ankle wound dehiscence. POSTOPERATIVE DIAGNOSIS: Left ankle wound dehiscence. NAME OF PROCEDURE: Left ankle wound debridement with application of graft. SURGEON: Mustapha Estevez DPM AIRPLANE CLEANER: Ansley Goodman PGY-1, DPM ANESTHESIOLOGIST: Jerman Peace MD and Dr. Coffman TYPE OF ANESTHESIA: General endotracheal with popliteal nerve block. INDICATION: The patient is a 48-year-old female with the above diagnosis. The patient has exhausted all conservative treatment at this time and now requires surgical intervention. The patient has signed the consent after careful explanation of risks, benefits, complications, and alternatives for surgical procedure. No guarantees were given nor implied. NPO status was confirmed prior to taking the patient to the operating room. PREPARATION: The patient was brought into the operating room and placed on the operating room table in the supine position. A timeout was performed for the identification of the correct patient and procedure. After induction of General anesthesia, the left lower extremity was then prepped and draped in normal sterile manner and the procedure began. No tourniquet was used during the procedure. DESCRIPTION OF THE PROCEDURE: Attention was then directed to the medial aspect of the left ankle where a nonhealing open wound measuring approximately 4.5 cm x 1.8 cm x 0.4 cm was present. A sterile number 15 blade and forceps was utilized to excise all necrotic tissue from the wound borders. A curette and dissection scissors was utilized to excisionally debride all fibrotic and nonviable tissue within the wound bed. At this time, the Integra PriMatrix Dermal Repair Scaffold 6 cm x 6 cm sheet was then fenestrated with a sterile number 15 blade and applied to the wound bed. The graft was approximated to the wound border utilizing 3-0 nylon suture. At this time, the 3 cc Integra Flowable Matrix was then injected beneath the Integra PriMatrix graft layer, so that it could infiltrate within the wound bed beneath the graft. At this time, 10 mL of 0.5% Marcaine plain was injected to the surgical site. The wound was then dressed with mineral oil, Adaptic dressing, 4 x 4 gauze, abdominal pads, and a Kerlix bandage. A light ROBIN was wrapped around left lower extremity. POSTOPERATIVE CONDITION: The patient tolerated the anesthesia and procedure well and escorted to the recovery room with vital signs stable and neurovascular status intact to the left lower extremity. The patient will be admitted to the Medical-Surgical floor at the hospital, and Podiatry will continue to follow the patient. Upon discharge, the patient will followup with Dr. Estevez within one week. Ansley oGodman DPM Mustapha Estevez DPM [id number]
== END 2018-02-14 23:50 | DRG 440 ==
LOC: H.OPSURG 15:38 → H.MEDSURG1 19:39
PROVIDERS: ADMIT Internal Medicine; ATTEND Internal Medicine
PROC: 0JBR0ZZ Excision of Left Foot Subcutaneous Tissue and Fascia, Open Approach (ICD-10-PCS; principal; 2018-02-13 17:00)
DX: T81.30XA Disruption of wound, unspecified, initial encounter (principal); E11.9 Type 2 diabetes mellitus without complications; E78.00 Pure hypercholesterolemia, unspecified; I10 Essential (primary) hypertension; Z79.4 Long term (current) use of insulin; Z90.49 Acquired absence of other specified parts of digestive tract; Z98.84 Bariatric surgery status; Z90.710 Acquired absence of both cervix and uterus

== ENCOUNTER 2018-02-15 00:15 | Inpatient (IN) | payer MEDICAID ==
[2018-02-15] MEDS ORDERED: Patient's Own Med (Lactulose 10 GM) PO PRN (01:51)
[2018-02-15] MEDS ORDERED: Lactulose 10 gm/15 ml Syrup PO PRN (02:03)
[2018-02-15 03:10] VITALS: RESP 20
[2018-02-15] MEDS: Oxycodone/Acetaminophen 5/325 mg Tab PO PRN ×2 (03:29→18:25)
[2018-02-15] MEDS: Bisacodyl 5mg EC Tab PO PRN (03:29)
[2018-02-15] MEDS: ceFAZolin 2 GM in Sodium Chloride 0.9% 100 ML IVPB SCH ×3 (05:37→20:53)
[2018-02-15] MEDS: Insulin Regular 100 units/ml SC SCH ×4 (06:41→22:00)
[2018-02-15] MEDS: Levothyroxine 25 MCG TAB PO SCH (06:48)
--- NOTE | 2018-02-15 16:44 | CP.PCM.HP ---
Past Patient History - Infectious Disease Hx of Infectious Diseases: None - Past Medical History & Family History Past Medical History?: Yes - Past Social History Smoking Status: Never Smoked - CARDIAC Hx Cardiac Disorders: Yes Hx Hypertension: Yes - PULMONARY Hx Respiratory Disorders: No Hx Asthma: No - NEUROLOGICAL Hx Neurological Disorder: Yes - HEENT Hx HEENT Problems: No - RENAL Hx Chronic Kidney Disease: No - ENDOCRINE/METABOLIC Hx Endocrine Disorders: Yes Hx Diabetes Mellitus Type 2: Yes - HEMATOLOGICAL/ONCOLOGICAL Hx Blood Disorders: No Hx AIDS: No Hx Cancer: Yes (UTERINE) Hx Human Immunodeficiency Virus (HIV): No - INTEGUMENTARY Hx Dermatological Problems: No - MUSCULOSKELETAL/RHEUMATOLOGICAL Hx Falls: No - GASTROINTESTINAL Hx Gastrointestinal Disorders: Yes Hx Gastritis: Yes Hx Gastroesophageal Reflux: Yes Other/Comment: gastric sleeve - GENITOURINARY/GYNECOLOGICAL Hx Genitourinary Disorders: No Hx Uterine Cancer: Yes - PSYCHIATRIC Hx Substance Use: No - SURGICAL HISTORY Hx Surgeries: Yes Hx Cholecystectomy: Yes Hx Gastric Bypass Surgery: Yes (GASTRIC SLEEVE 05/25/2014) Hx Hysterectomy: Yes (JAN 2014) Hx Tonsillectomy: Yes (AGE 2) Other/Comment: LEFT EAR .GASTRIC SLEEVE MAY 2014, 02/13/18 delayed closure of l ankle wound with application of graft - ANESTHESIA Hx Anesthesia: Yes Hx Anesthesia Reactions: No Hx Malignant Hyperthermia: No Meds Allergies/Adverse Reactions: Allergies Allergy/AdvReac Type Severity Reaction Status Date / Time piperacillin [From Zosyn] Allergy RASH Verified 02/08/18 07:51 tazobactam [From Zosyn] Allergy RASH Verified 02/08/18 07:51 Results - Vital Signs Recent Vital Signs: Last Vital Signs Temp 97.5 F L 02/15/18 15:42 Pulse 88 02/15/18 15:42 Resp 20 02/15/18 15:42 BP 102/64 02/15/18 15:42 Pulse Ox 99 02/15/18 15:42 - Labs Labs: Laboratory Results - last 24 hr 02/15/18 02/15/18 02/15/18 05:07 10:58 16:17 POC Glucose (mg/dL) 93 136 H 176 H
[2018-02-15] MEDS: Multivitamin With Minerals Tab PO SCH (22:00)
--- NOTE | 2018-02-15 23:07 | CP.PCM.PN ---
Subjective - Date & Time of Evaluation Date of Evaluation: 02/15/18 Time of Evaluation: 23:04 - Subjective Subjective: Podiatry Progress Note - Dr. Estevez 48 year old female patient seen and evaluated for left ankle wound dehiscence, POD#9 L foot I&D and POD#2 L delayed closure of wound with graft application. Patient hemodynamically stable and NAD. No acute events overnight, was able to sleep well without any issues. Patient reports pain/soreness to left ankle, improving. Multipodus boot present to LLE. Denies N/V/F/D/C/SOB/calf pain. Offers no other complaints. Objective - Vital Signs/Intake and Output Vital Signs (last 24 hours): Temp Pulse Resp BP Pulse Ox 97.0 F L 88 20 115/74 98 02/15/18 20:10 02/15/18 20:10 02/15/18 20:10 02/15/18 20:10 02/15/18 20:10 - Medications Medications: Current Medications Bisacodyl (Dulcolax) 5 mg PO DAILY PRN PRN Reason: Constipation Last Admin: 02/15/18 03:29 Dose: 5 mg Diphenhydramine HCl (Benadryl) 25 mg PO Q6 PRN PRN Reason: Itching / Pruritus Hydrochlorothiazide (Microzide) 12.5 mg PO DAILY [facility] Last Admin: 02/15/18 08:15 Dose: 12.5 mg Cefazolin Sodium 2 gm/ Sodium (Chloride) 100 mls @ 100 mls/hr IVPB Q8@0500,1300 ,2100 [facility] PRN Reason: Protocol Last Admin: 02/15/18 20:53 Dose: 100 mls/hr Insulin Human Regular (Humulin R) 0 units SC ACCU-CHECK [facility] PRN Reason: Protocol Last Admin: 02/15/18 16:59 Dose: 2 units Lactulose (Enulose) 20 gm PO DAILY PRN PRN Reason: Constipation Last Admin: 02/15/18 16:58 Dose: 20 gm Levothyroxine Sodium (Synthroid) 25 mcg PO DAILY@0630 [facility] Last Admin: 02/15/18 06:48 Dose: 25 mcg Multivitamins/Minerals (Therapeutic-M Tab) 1 tab PO HS [facility] Oxycodone/Acetaminophen (Percocet 5/325 Mg Tab) 1 tab PO Q4 PRN PRN Reason: Pain, moderate (4-7) Stop: 02/18/18 01:52 Last Admin: 02/15/18 18:25 Dose: 1 tab Repaglinide (Prandin) 2 mg PO TID [facility] Last Admin: 02/15/18 16:58 Dose: 2 mg Rivaroxaban (Xarelto) 15 mg PO BIDWM [facility] PRN Reason: Protocol Last Admin: 02/15/18 16:58 Dose: 15 mg Valsartan (Diovan) 160 mg PO DAILY [facility] Last Admin: 02/15/18 08:15 Dose: 160 mg Zolpidem Tartrate (Ambien) 5 mg PO HS PRN PRN Reason: Insomnia Last Admin: 02/15/18 02:14 Dose: 5 mg - Constitutional Appears: Well, Non-toxic, No Acute Distress - Extremities Exam Additional comments: Dressing left C/D/I - Neurological Exam Neurological Exam: Alert, Awake, Oriented x3 - Psychiatric Exam Psychiatric exam: Normal Affect, Normal Mood Assessment and Plan - Assessment and Plan (Free Text) Assessment: 48 year old female with 1) infected surgical wound left ankle, resolving POD#9 Incision and drainage of left foot wound with removal of all non-viable soft tissue (DOS 02/05/18) POD#2 Left foot delayed closure of wound with application of graft (DOS 02/13/18) Plan: Patient seen and evaluated Plan discussed with attending, Dr. Estevez Labs and vitals reviewed - afebrile LLE venous duplex (02/01/18): DVT within superficial femoral and popliteal veins Chest CT ordered r/o PE (02/01/18): Limited study due to suboptimal opacification and large body habitus demonstrating no acute central pulmonary embolus; no acute consolidation, mild atelectasis both posterior lower lung zones LLE MRI (02/03/18): Possible abscess collection medial aspect of mid/posterior calcaneus measuring 1.1 x 0.7 x 2.0cm, extends into posterior tarsal tunnel. LLE arterial duplex (02/04/18): awaiting report Left ankle WCx - staphylococcus aureus -Deep wound culture: staph aureus -Soft tissue path: Adipose tissue with foci of necrosis, acute inflammation and granulation tissue reaction ID consulted - continue Ancef IV 2g q8h -Patient will require 6 weeks abx (Cefazolin) for LLE cellulitis, wound cx + MSSA per Dr. Hernandez Continue Rivaroxaban 15mg PO BID Pain management - Lidoderm TD, Tylenol 650mg PO, Percocet 1-2 tab PO, Dilaudid 0.5mg IV Keep dressing clean/dry/intact until POD#6 Podiatry will continue to follow while in house
[2018-02-16] MEDS: Oxycodone/Acetaminophen 5/325 mg Tab PO PRN ×2 (02:45→14:57)
[2018-02-16] MEDS: ceFAZolin 2 GM in Sodium Chloride 0.9% 100 ML IVPB SCH ×3 (05:37→21:21)
[2018-02-16] MEDS: Levothyroxine 25 MCG TAB PO SCH (05:42)
[2018-02-16] MEDS: Insulin Regular 100 units/ml SC SCH ×4 (06:37→22:29)
[2018-02-16] MEDS: Bisacodyl 5mg EC Tab PO PRN (08:25)
--- NOTE | 2018-02-16 14:16 | CP.PCM.CON ---
History of Present Illness - History of Present Illness History of Present Illness: 48 year old female patient seen for nonhealing wound to left ankle and left calf pain.. Patient had left tarsal tunnel release with removal of soft tissue mass 11/20/17 and was healing well; as pain started to diminish patient started to ambulate with CAM walker while she was supposed to be NWB. At this time, her surgical wound dehisced. A wound vac was placed for 2 weeks however vac malfunctioned but was left in place for [address] Estevez, patient was placed on Bactrim last week but has not alleviated any redness. eventually sent to TCU but needed revision and graft therefor readmiited to floors and now back in TCU diagnosed with cellulitis left medial foot, DVT, Osteomyelitis left ankle IV rx in progress s/p I and D developed rash- likely fungal - exclusively skin folds Review of Systems - Review of Systems All systems: reviewed and no additional remarkable complaints except Past Patient History - Infectious Disease Hx of Infectious Diseases: None - Past Medical History & Family History Past Medical History?: Yes - Past Social History Smoking Status: Never Smoked - CARDIAC Hx Cardiac Disorders: Yes Hx Hypertension: Yes - PULMONARY Hx Respiratory Disorders: No Hx Asthma: No - NEUROLOGICAL Hx Neurological Disorder: Yes - HEENT Hx HEENT Problems: No - RENAL Hx Chronic Kidney Disease: No - ENDOCRINE/METABOLIC Hx Endocrine Disorders: Yes Hx Diabetes Mellitus Type 2: Yes - HEMATOLOGICAL/ONCOLOGICAL Hx Blood Disorders: No Hx AIDS: No Hx Cancer: Yes (UTERINE) Hx Human Immunodeficiency Virus (HIV): No - INTEGUMENTARY Hx Dermatological Problems: No - MUSCULOSKELETAL/RHEUMATOLOGICAL Hx Falls: No - GASTROINTESTINAL Hx Gastrointestinal Disorders: Yes Hx Gastritis: Yes Hx Gastroesophageal Reflux: Yes Other/Comment: gastric sleeve - GENITOURINARY/GYNECOLOGICAL Hx Genitourinary Disorders: No Hx Uterine Cancer: Yes - PSYCHIATRIC Hx Substance Use: No - SURGICAL HISTORY Hx Surgeries: Yes Hx Cholecystectomy: Yes Hx Gastric Bypass Surgery: Yes (GASTRIC SLEEVE 05/25/2014) Hx Hysterectomy: Yes (JAN 2014) Hx Tonsillectomy: Yes (AGE 2) Other/Comment: LEFT EAR .GASTRIC SLEEVE MAY 2014, 02/13/18 delayed closure of l ankle wound with application of graft - ANESTHESIA Hx Anesthesia: Yes Hx Anesthesia Reactions: No Hx Malignant Hyperthermia: No Meds Allergies/Adverse Reactions: Allergies Allergy/AdvReac Type Severity Reaction Status Date / Time piperacillin [From Zosyn] Allergy RASH Verified 02/08/18 07:51 tazobactam [From Zosyn] Allergy RASH Verified 02/08/18 07:51 - Medications Medications: Current Medications Bisacodyl (Dulcolax) 5 mg PO DAILY PRN PRN Reason: Constipation Last Admin: 02/16/18 08:25 Dose: 5 mg Diphenhydramine HCl (Benadryl) 25 mg PO Q6 PRN PRN Reason: Itching / Pruritus Hydrochlorothiazide (Microzide) 12.5 mg PO DAILY [facility] Last Admin: 02/16/18 08:20 Dose: 12.5 mg Cefazolin Sodium 2 gm/ Sodium (Chloride) 100 mls @ 100 mls/hr IVPB Q8@0500,1300 ,2100 [facility] PRN Reason: Protocol Last Admin: 02/16/18 12:09 Dose: 100 mls/hr Insulin Human Regular (Humulin R) 0 units SC ACCU-CHECK [facility] PRN Reason: Protocol Last Admin: 02/16/18 11:52 Dose: Not Given Lactulose (Enulose) 20 gm PO DAILY PRN PRN Reason: Constipation Last Admin: 02/15/18 16:58 Dose: 20 gm Levothyroxine Sodium (Synthroid) 25 mcg PO DAILY@0630 [facility] Last Admin: 02/16/18 05:42 Dose: 25 mcg Multivitamins/Minerals (Therapeutic-M Tab) 1 tab PO HS [facility] Last Admin: 02/15/18 22:00 Dose: 1 tab Oxycodone/Acetaminophen (Percocet 5/325 Mg Tab) 1 tab PO Q4 PRN PRN Reason: Pain, moderate (4-7) Stop: 02/18/18 01:52 Last Admin: 02/16/18 02:45 Dose: 1 tab Repaglinide (Prandin) 2 mg PO TID [facility] Last Admin: 02/16/18 12:09 Dose: 2 mg Rivaroxaban (Xarelto) 15 mg PO BIDWM [facility] PRN Reason: Protocol Last Admin: 02/16/18 08:20 Dose: 15 mg Valsartan (Diovan) 160 mg PO DAILY [facility] Last Admin: 02/16/18 08:20 Dose: 160 mg Zolpidem Tartrate (Ambien) 5 mg PO HS PRN PRN Reason: Insomnia Last Admin: 02/15/18 23:40 Dose: 5 mg Physical Exam - Constitutional Appears: Chronically Ill - Head Exam Head Exam: NORMAL INSPECTION - Eye Exam Eye Exam: PERRL - ENT Exam ENT Exam: Normal External Ear Exam - Neck Exam Neck exam: Negative for: Lymphadenopathy - Respiratory Exam Respiratory Exam: Decreased Breath Sounds - Cardiovascular Exam Cardiovascular Exam: REGULAR RHYTHM - GI/Abdominal Exam GI & Abdominal Exam: Diminished Bowel Sounds - Rectal Exam Rectal Exam: Deferred - Exam Exam: NORMAL INSPECTION - Extremities Exam Extremities exam: Positive for: pedal edema, tenderness, pedal pulses present. Negative for: calf tenderness - Back Exam Back exam: absent: CVA tenderness (L), CVA tenderness (R), paraspinal tenderness - Neurological Exam Neurological exam: Alert, CN II-XII Intact, Oriented x3, Reflexes Normal - Psychiatric Exam Psychiatric exam: Normal Mood - Skin Skin Exam: Dry Results - Vital Signs Recent Vital Signs: Last Vital Signs Temp 97.3 F L 02/16/18 08:03 Pulse 74 02/16/18 08:03 Resp 20 02/16/18 08:03 BP 105/60 02/16/18 08:03 Pulse Ox 99 02/16/18 08:03 - Labs Labs: Laboratory Results - last 24 hr 02/15/18 02/15/18 02/15/18 10:58 16:17 20:57 POC Glucose (mg/dL) 136 H 176 H 105 02/16/18 02/16/18 05:43 11:28 POC Glucose (mg/dL) 106 100 Assessment & Plan - Assessment and Plan (Free Text) Assessment: 48 year old female patient seen for nonhealing wound to left ankle and left calf pain.. Patient had left tarsal tunnel release with removal of soft tissue mass 11/20/17 and was healing well; recently diagnosed with cellulitis left medial foot, DVT, Osteomyelitis left ankle - c/s + MSSA IV rx in progress s/p I and D s/p revision and graft now on antibiotics for 6 weeks
--- NOTE | 2018-02-16 15:30 | CP.PCM.PN ---
Subjective - Date & Time of Evaluation Date of Evaluation: 02/16/18 Time of Evaluation: 13:28 - Subjective Subjective: Podiatry Progress Note - Dr. Estevez 48 year old female patient seen and evaluated by Dr. Estevez for left ankle wound dehiscence, POD#10 L foot I&D and POD#3 L delayed closure of wound with graft application. Per Dr. Estevez, patient hemodynamically stable and NAD. No acute events overnight, was able to sleep well without any issues. Patient reports pain/soreness to left ankle, improving. Multipodus boot present to LLE. Denies N/V/F/D/C/SOB/calf pain. Offers no other complaints. Objective - Vital Signs/Intake and Output Vital Signs (last 24 hours): Temp Pulse Resp BP Pulse Ox 97.3 F L 74 20 105/60 99 02/16/18 08:03 02/16/18 08:03 02/16/18 08:03 02/16/18 08:03 02/16/18 08:03 - Medications Medications: Current Medications Bisacodyl (Dulcolax) 5 mg PO DAILY PRN PRN Reason: Constipation Last Admin: 02/16/18 08:25 Dose: 5 mg Diphenhydramine HCl (Benadryl) 25 mg PO Q6 PRN PRN Reason: Itching / Pruritus Hydrochlorothiazide (Microzide) 12.5 mg PO DAILY [facility] Last Admin: 02/16/18 08:20 Dose: 12.5 mg Cefazolin Sodium 2 gm/ Sodium (Chloride) 100 mls @ 100 mls/hr IVPB Q8@0500,1300 ,2100 [facility] PRN Reason: Protocol Last Admin: 02/16/18 12:09 Dose: 100 mls/hr Insulin Human Regular (Humulin R) 0 units SC ACCU-CHECK [facility] PRN Reason: Protocol Last Admin: 02/16/18 11:52 Dose: Not Given Lactulose (Enulose) 20 gm PO DAILY PRN PRN Reason: Constipation Last Admin: 02/15/18 16:58 Dose: 20 gm Levothyroxine Sodium (Synthroid) 25 mcg PO DAILY@0630 [facility] Last Admin: 02/16/18 05:42 Dose: 25 mcg Multivitamins/Minerals (Therapeutic-M Tab) 1 tab PO HS [facility] Last Admin: 02/15/18 22:00 Dose: 1 tab Oxycodone/Acetaminophen (Percocet 5/325 Mg Tab) 1 tab PO Q4 PRN PRN Reason: Pain, moderate (4-7) Stop: 02/18/18 01:52 Last Admin: 02/16/18 14:57 Dose: 1 tab Repaglinide (Prandin) 2 mg PO TID [facility] Last Admin: 02/16/18 12:09 Dose: 2 mg Rivaroxaban (Xarelto) 15 mg PO BIDWM [facility] PRN Reason: Protocol Last Admin: 02/16/18 08:20 Dose: 15 mg Valsartan (Diovan) 160 mg PO DAILY [facility] Last Admin: 02/16/18 08:20 Dose: 160 mg Zolpidem Tartrate (Ambien) 5 mg PO HS PRN PRN Reason: Insomnia Last Admin: 02/15/18 23:40 Dose: 5 mg - Constitutional Appears: Well, Non-toxic, No Acute Distress - Extremities Exam Additional comments: Dressing left C/D/I per Dr. Estevez CFT < 3 seconds to all digits of injured foot - Neurological Exam Neurological Exam: Alert, Awake, Oriented x3 - Psychiatric Exam Psychiatric exam: Normal Affect, Normal Mood Assessment and Plan - Assessment and Plan (Free Text) Assessment: 48 year old female with 1) infected surgical wound left ankle, resolving POD#10 Incision and drainage of left foot wound with removal of all non-viable soft tissue (DOS 3) POD#3 Left foot delayed closure of wound with application of graft (DOS 02/13/18) Plan: Per Dr. Estevez patient to continue PT Dressing to remain intact until 02/19/18 Podiatry will continue to follow while patient in house
[2018-02-16] MEDS: Multivitamin With Minerals Tab PO SCH (21:20)
[2018-02-17] MEDS: Oxycodone/Acetaminophen 5/325 mg Tab PO PRN ×2 (03:10→08:18)
[2018-02-17] MEDS: Levothyroxine 25 MCG TAB PO SCH (05:41)
[2018-02-17] MEDS: ceFAZolin 2 GM in Sodium Chloride 0.9% 100 ML IVPB SCH ×3 (05:42→21:07)
[2018-02-17] MEDS: Insulin Regular 100 units/ml SC SCH ×4 (06:05→22:28)
--- NOTE | 2018-02-17 09:02 | CP.PCM.PN ---
Subjective - Date & Time of Evaluation Date of Evaluation: 02/17/18 Time of Evaluation: 08:00 - Subjective Subjective: Podiatry Progress Note - Dr. Estevez 48 year old female patient seen and evaluated at bedside for left ankle wound dehiscence, POD#11 L foot I&D, and POD#4 L delayed closure of wound with graft application. Patient is seen resting comfortably at bedside, in NAD, and AA0x3. Patient reports the same achy pain to her right ankle. She reports that she has continued to work with physical therapy. She reports feeling well. She denies nausea, fever, shortness of breath, chest pain, or chills. She denies other pedal complaints at this time. Objective - Vital Signs/Intake and Output Vital Signs (last 24 hours): Temp Pulse Resp BP Pulse Ox 97.7 F 80 20 110/73 100 02/17/18 07:47 02/17/18 07:47 02/17/18 07:47 02/17/18 07:47 02/17/18 07:47 - Medications Medications: Current Medications Bisacodyl (Dulcolax) 5 mg PO DAILY PRN PRN Reason: Constipation Last Admin: 02/16/18 08:25 Dose: 5 mg Diphenhydramine HCl (Benadryl) 25 mg PO Q6 PRN PRN Reason: Itching / Pruritus Hydrochlorothiazide (Microzide) 12.5 mg PO DAILY [facility] Last Admin: 02/17/18 08:11 Dose: 12.5 mg Cefazolin Sodium 2 gm/ Sodium (Chloride) 100 mls @ 100 mls/hr IVPB Q8@0500,1300 ,2100 [facility] PRN Reason: Protocol Last Admin: 02/17/18 05:42 Dose: 100 mls/hr Insulin Human Regular (Humulin R) 0 units SC ACCU-CHECK [facility] PRN Reason: Protocol Last Admin: 02/17/18 06:05 Dose: Not Given Lactulose (Enulose) 20 gm PO DAILY PRN PRN Reason: Constipation Last Admin: 02/15/18 16:58 Dose: 20 gm Levothyroxine Sodium (Synthroid) 25 mcg PO DAILY@0630 [facility] Last Admin: 02/17/18 05:41 Dose: 25 mcg Multivitamins/Minerals (Therapeutic-M Tab) 1 tab PO HS [facility] Last Admin: 02/16/18 21:20 Dose: 1 tab Nystatin (Nystop Topical Powder) 1 applic TOP BID PRN PRN Reason: Other Last Admin: 02/16/18 22:30 Dose: 1 appful Oxycodone/Acetaminophen (Percocet 5/325 Mg Tab) 1 tab PO Q4 PRN PRN Reason: Pain, moderate (4-7) Stop: 02/18/18 01:52 Last Admin: 02/17/18 08:18 Dose: 1 tab Repaglinide (Prandin) 2 mg PO TID [facility] Last Admin: 02/17/18 08:12 Dose: 2 mg Rivaroxaban (Xarelto) 15 mg PO BIDWM [facility] PRN Reason: Protocol Last Admin: 02/17/18 08:12 Dose: 15 mg Valsartan (Diovan) 160 mg PO DAILY [facility] Last Admin: 02/17/18 08:11 Dose: 160 mg Zolpidem Tartrate (Ambien) 5 mg PO HS PRN PRN Reason: Insomnia Last Admin: 02/16/18 22:29 Dose: 5 mg - Constitutional Appears: Well, Non-toxic, No Acute Distress - Extremities Exam Additional comments: Dressing clean, dry, and intact without strikethrough No calf pain or tenderness with palpation Temperature gradient WNL CFT WNL - Neurological Exam Neurological Exam: Awake, Oriented x3 - Psychiatric Exam Psychiatric exam: Normal Affect, Normal Mood Assessment and Plan - Assessment and Plan (Free Text) Assessment: 48 year old female with 1) infected surgical wound left ankle, resolving POD#11 Incision and drainage of left foot wound with removal of all non-viable soft tissue (DOS 3) POD#4 Left foot delayed closure of wound with application of graft (DOS 02/13/18) Plan: Patient examined and evaluated Discussed plan in detail with attending Dr. Estevez Labs, vitals, chart reviewed Encourage patient to continue PT Dressing to the right ankle to remain intact until 02/19/18. Please keep dressing c/d/i. Do not change. Do not get wet. Thank you Podiatry will continue to follow while patient in house
--- NOTE | 2018-02-17 09:21 | PN ---
DATE: 02/16/2018 SUBJECTIVE: The patient is seen and examined. Interim events noted. Consults noted and appreciated. Podiatry followup and intervention noted and appreciated. The patient remains in Transitional Care Unit. Feels okay. Pain is adequately controlled. The patient is status post surgery. No chest pain or shortness of breath. PHYSICAL EXAMINATION: GENERAL: The patient is in no acute distress. VITAL SIGNS: Stable. HEART: S1 and S2 normal and regular. LUNGS: Good bilateral air exchange. GASTROINTESTINAL: Abdomen is soft and nontender. EXTREMITIES: The patient is status post surgery. No sign of acute distal complication and no edema. No calf swelling. No tenderness. No acute ischemia. CENTRAL NERVOUS SYSTEM: Exam is essentially unchanged. DIAGNOSTIC DATA: Available diagnostic data reviewed. IMPRESSION AND PLAN: Overall, the patient's general medical condition is slowly improving. The patient will require prolonged antibiotic therapy. Plan as ordered. Case and plan discussed with the patient. Steve Shine MD
--- NOTE | 2018-02-17 09:53 | PN ---
DATE: 02/17/2018 SUBJECTIVE: The patient is seen and examined. The patient remains in Transitional Care Unit on IV antibiotics. She feels okay. Denies any specific complaint of chest pain or shortness of breath. PHYSICAL EXAMINATION: GENERAL: The patient is in no acute distress. VITAL SIGNS: Stable. Physical exam is essentially unchanged. DIAGNOSTIC DATA: Available diagnostic data reviewed. IMPRESSION AND PLAN: Overall, the patient's general medical condition is stable. Plan as ordered. Steve Shine MD
[2018-02-17] MEDS: Bisacodyl 5mg EC Tab PO PRN (15:37)
[2018-02-17] MEDS: Multivitamin With Minerals Tab PO SCH (21:08)
[2018-02-18] MEDS ORDERED: Oxycodone/Acetaminophen 5/325 mg Tab PO ONE (04:24)
[2018-02-18] MEDS: ceFAZolin 2 GM in Sodium Chloride 0.9% 100 ML IVPB SCH ×3 (04:53→21:05)
[2018-02-18] MEDS: Levothyroxine 25 MCG TAB PO SCH (05:49)
[2018-02-18] MEDS: Insulin Regular 100 units/ml SC SCH ×4 (06:31→22:18)
--- NOTE | 2018-02-18 09:12 | CP.PCM.PN ---
Subjective - Date & Time of Evaluation Date of Evaluation: 02/18/18 Time of Evaluation: 07:45 - Subjective Subjective: Patient evaluated at bedside with Dr Shine during rounds. Stable. No acute distress. No events overnight. Afebrile. Pain improved and controlled with meds. Still some tingling sensation dorsum of L/foot. Objective - Vital Signs/Intake and Output Vital Signs (last 24 hours): Temp Pulse Resp BP Pulse Ox 97.9 F 84 20 95/57 L 97 02/17/18 20:33 02/17/18 20:33 02/17/18 20:33 02/17/18 20:33 02/17/18 20:33 - Medications Medications: Current Medications Bisacodyl (Dulcolax) 5 mg PO DAILY PRN PRN Reason: Constipation Last Admin: 02/17/18 15:37 Dose: 5 mg Diphenhydramine HCl (Benadryl) 25 mg PO Q6 PRN PRN Reason: Itching / Pruritus Hydrochlorothiazide (Microzide) 12.5 mg PO DAILY [facility] Last Admin: 02/18/18 08:21 Dose: 12.5 mg Cefazolin Sodium 2 gm/ Sodium (Chloride) 100 mls @ 100 mls/hr IVPB Q8@0500,1300 ,2100 [facility] PRN Reason: Protocol Last Admin: 02/18/18 04:53 Dose: 100 mls/hr Insulin Human Regular (Humulin R) 0 units SC ACCU-CHECK [facility] PRN Reason: Protocol Last Admin: 02/18/18 06:31 Dose: Not Given Lactulose (Enulose) 20 gm PO DAILY PRN PRN Reason: Constipation Last Admin: 02/15/18 16:58 Dose: 20 gm Levothyroxine Sodium (Synthroid) 25 mcg PO DAILY@0630 [facility] Last Admin: 02/18/18 05:49 Dose: 25 mcg Multivitamins/Minerals (Therapeutic-M Tab) 1 tab PO HS [facility] Last Admin: 02/17/18 21:08 Dose: 1 tab Nystatin (Nystop Topical Powder) 1 applic TOP BID PRN PRN Reason: Other Last Admin: 02/16/18 22:30 Dose: 1 appful Repaglinide (Prandin) 2 mg PO TID [facility] Last Admin: 02/18/18 08:21 Dose: 2 mg Rivaroxaban (Xarelto) 15 mg PO BIDWM [facility] PRN Reason: Protocol Last Admin: 02/18/18 08:21 Dose: 15 mg Valsartan (Diovan) 160 mg PO DAILY [facility] Last Admin: 02/18/18 08:21 Dose: 160 mg - Constitutional Appears: Non-toxic, No Acute Distress - Eye Exam Eye Exam: EOMI, Normal appearance, PERRL - ENT Exam ENT Exam: Mucous Membranes Moist - Respiratory Exam Respiratory Exam: Clear to Ausculation Bilateral, NORMAL BREATHING PATTERN. absent: Decreased Breath Sounds, Rales - Cardiovascular Exam Cardiovascular Exam: REGULAR RHYTHM, +S1, +S2. absent: Gallop - GI/Abdominal Exam GI & Abdominal Exam: Soft, Normal Bowel Sounds. absent: Tenderness, Rebound - Extremities Exam Additional comments: L/foot covered with dressing that looks clean and dry. No signs of acute neurovascular compromise - Neurological Exam Neurological Exam: Alert, Awake, Oriented x3 - Psychiatric Exam Psychiatric exam: Normal Affect, Normal Mood - Skin Skin Exam: Warm. absent: Petechiae, Rash Assessment and Plan - Assessment and Plan (Free Text) Assessment: L/foot chronic ulcer with DVT and possible OM C/W IV abx to complete 6 weeks as per ID S/P Delayed wound closure POD 5 Dressing to be removed tomorrow C/w Current plan Podiatry and ID consult appreciated.
[2018-02-18] MEDS: Oxycodone/Acetaminophen 5/325 mg Tab PO PRN (21:02)
[2018-02-18] MEDS: Multivitamin With Minerals Tab PO SCH (21:04)
[2018-02-19] MEDS: ceFAZolin 2 GM in Sodium Chloride 0.9% 100 ML IVPB SCH ×3 (04:34→20:49)
[2018-02-19] MEDS: Levothyroxine 25 MCG TAB PO SCH (05:32)
[2018-02-19] MEDS: Insulin Regular 100 units/ml SC SCH ×4 (06:30→23:18)
--- NOTE | 2018-02-19 08:01 | CP.PCM.PN ---
Subjective - Date & Time of Evaluation Date of Evaluation: 02/19/18 Time of Evaluation: 07:10 - Subjective Subjective: Patient evaluated at bedside with DR Shine during rounds Stable, pain is controlled with meds. Afebrile. Denies nausea, vomiting, abd pain, headache. tolerating PO. NO changes in urination or stools. Objective - Vital Signs/Intake and Output Vital Signs (last 24 hours): Temp Pulse Resp BP Pulse Ox 98.6 F 88 20 103/67 100 02/18/18 19:36 02/18/18 19:36 02/18/18 19:36 02/18/18 19:36 02/18/18 19:36 - Medications Medications: Current Medications Bisacodyl (Dulcolax) 5 mg PO DAILY PRN PRN Reason: Constipation Last Admin: 02/17/18 15:37 Dose: 5 mg Diphenhydramine HCl (Benadryl) 25 mg PO Q6 PRN PRN Reason: Itching / Pruritus Hydrochlorothiazide (Microzide) 12.5 mg PO DAILY [facility] Last Admin: 02/18/18 08:21 Dose: 12.5 mg Cefazolin Sodium 2 gm/ Sodium (Chloride) 100 mls @ 100 mls/hr IVPB Q8@0500,1300 ,2100 [facility] PRN Reason: Protocol Last Admin: 02/19/18 04:34 Dose: 100 mls/hr Insulin Human Regular (Humulin R) 0 units SC ACCU-CHECK [facility] PRN Reason: Protocol Last Admin: 02/19/18 06:30 Dose: Not Given Lactulose (Enulose) 20 gm PO DAILY PRN PRN Reason: Constipation Last Admin: 02/15/18 16:58 Dose: 20 gm Levothyroxine Sodium (Synthroid) 25 mcg PO DAILY@0630 [facility] Last Admin: 02/19/18 05:32 Dose: 25 mcg Multivitamins/Minerals (Therapeutic-M Tab) 1 tab PO HS [facility] Last Admin: 02/18/18 21:04 Dose: 1 tab Nystatin (Nystop Topical Powder) 1 applic TOP BID PRN PRN Reason: Other Last Admin: 02/16/18 22:30 Dose: 1 appful Oxycodone/Acetaminophen (Percocet 5/325 Mg Tab) 1 tab PO Q4 PRN PRN Reason: Pain, severe (8-10) Stop: 02/21/18 19:37 Last Admin: 02/18/18 21:02 Dose: 1 tab Repaglinide (Prandin) 2 mg PO TID [facility] Last Admin: 02/18/18 16:51 Dose: 2 mg Rivaroxaban (Xarelto) 15 mg PO BIDWM [facility] PRN Reason: Protocol Last Admin: 02/18/18 16:52 Dose: 15 mg Valsartan (Diovan) 160 mg PO DAILY [facility] Last Admin: 02/18/18 08:21 Dose: 160 mg Zolpidem Tartrate (Ambien) 5 mg PO HS PRN PRN Reason: Insomnia Last Admin: 02/18/18 23:03 Dose: 5 mg - Constitutional Appears: Non-toxic, No Acute Distress - Eye Exam Eye Exam: EOMI, PERRL - ENT Exam ENT Exam: Mucous Membranes Moist - Respiratory Exam Respiratory Exam: Clear to Ausculation Bilateral, NORMAL BREATHING PATTERN. absent: Rales, Respiratory Distress - Cardiovascular Exam Cardiovascular Exam: REGULAR RHYTHM, +S1, +S2. absent: Gallop - GI/Abdominal Exam GI & Abdominal Exam: Soft, Normal Bowel Sounds. absent: Distended, Guarding, Tenderness, Rebound - Extremities Exam Extremities Exam: Normal Capillary Refill. absent: Calf Tenderness Additional comments: L/foot covered with nonremovable dressing. No signs of neurovascular compromise on LE - Neurological Exam Neurological Exam: Alert, Awake, Oriented x3 - Psychiatric Exam Psychiatric exam: Normal Affect, Normal Mood - Skin Skin Exam: Normal Color, Warm Assessment and Plan - Assessment and Plan (Free Text) Assessment: Chronic ulcer/Cellulitis/Poss OM L/foot C/W IV Ancef(Complete 6 weeks of IV abx) Podiatry consult appreciated S/P delayed wound closure POD6 Stable c/w pain control DVT Stable C/W Xarelto 15 BID
[2018-02-19] MEDS: Oxycodone/Acetaminophen 5/325 mg Tab PO PRN ×2 (10:12→20:48)
[2018-02-19] MEDS: Multivitamin With Minerals Tab PO SCH (23:21)
[2018-02-20] MEDS: Oxycodone/Acetaminophen 5/325 mg Tab PO PRN (04:12)
[2018-02-20] MEDS: ceFAZolin 2 GM in Sodium Chloride 0.9% 100 ML IVPB SCH ×3 (04:29→21:05)
[2018-02-20 06:04] LABS: BASO % 0.5 % (0.0-2.0); EOS # 0.1 K/uL (0.0-0.7); EOS % 2.2 % (0.0-4.0); HEMOGLOBIN 12.5 g/dL (12.0-16.0); LYMPH % 37.3 % (20.0-40.0); MEAN CELL VOLUME 88.2 fl (81.0-99.0); MEAN CORPUSCULAR HEMOGLOBIN 29.8 pg (27.0-31.0); MEAN CORPUSCULAR HGB CONC 33.8 g/dL (33.0-37.0); MEAN PLATELET VOLUME 8.5 fl (7.2-11.7); MONO # 0.5 K/uL (0.0-0.8); MONO % 9.6 % (0.0-10.0); NEUT # 2.7 K/uL (1.8-7.0); NEUT % 50.4 % (50.0-75.0); NRBC % 0.3 % (0.0-0.0); RBC 4.2 Mil/uL (3.80-5.20); RED CELL DISTRIBUTION WIDTH 13.7 % (11.5-14.5); WHITE BLOOD COUNT 5.3 K/uL (4.8-10.8)
[2018-02-20] MEDS: Levothyroxine 25 MCG TAB PO SCH (06:21)
[2018-02-20 06:29] LABS: BLOOD UREA NITROGEN 18 mg/dl (7-17); CALCIUM 9.4 mg/dL (8.4-10.2); GFR AFRICAN-AMERICAN > 60; GFR NON-AFRICAN AMERICAN > 60
--- NOTE | 2018-02-20 09:17 | CP.PCM.PN ---
Subjective - Date & Time of Evaluation Date of Evaluation: 02/20/18 Time of Evaluation: 07:15 - Subjective Subjective: Evaluated with DR Shine during morning rounds. Stable, Afebrile. C/o burning sensation in affected foot area. Dressing in place, covered with christiano wrap. She will have dressing removed by Podiatry today. Denies CP, SOB, palpitations, vomiting. Occasional nausea Objective - Vital Signs/Intake and Output Vital Signs (last 24 hours): Temp Pulse Resp BP Pulse Ox 97.7 F 81 20 91/61 L 98 02/20/18 07:49 02/20/18 07:49 02/20/18 07:49 02/20/18 07:49 02/20/18 07:49 - Medications Medications: Current Medications Bisacodyl (Dulcolax) 5 mg PO DAILY PRN PRN Reason: Constipation Last Admin: 02/17/18 15:37 Dose: 5 mg Diphenhydramine HCl (Benadryl) 25 mg PO Q6 PRN PRN Reason: Itching / Pruritus Hydrochlorothiazide (Microzide) 12.5 mg PO DAILY [facility] Last Admin: 02/19/18 08:33 Dose: 12.5 mg Cefazolin Sodium 2 gm/ Sodium (Chloride) 100 mls @ 100 mls/hr IVPB Q8@0500,1300 ,2100 [facility] PRN Reason: Protocol Last Admin: 02/20/18 04:29 Dose: 100 mls/hr Insulin Human Regular (Humulin R) 0 units SC ACCU-CHECK [facility] PRN Reason: Protocol Last Admin: 02/19/18 23:18 Dose: Not Given Lactulose (Enulose) 20 gm PO DAILY PRN PRN Reason: Constipation Last Admin: 02/15/18 16:58 Dose: 20 gm Levothyroxine Sodium (Synthroid) 25 mcg PO DAILY@0630 [facility] Last Admin: 02/20/18 06:21 Dose: 25 mcg Multivitamins/Minerals (Therapeutic-M Tab) 1 tab PO HS [facility] Last Admin: 02/19/18 23:21 Dose: 1 tab Nystatin (Nystop Topical Powder) 1 applic TOP BID PRN PRN Reason: Other Last Admin: 02/16/18 22:30 Dose: 1 appful Oxycodone/Acetaminophen (Percocet 5/325 Mg Tab) 1 tab PO Q4 PRN PRN Reason: Pain, severe (8-10) Stop: 02/21/18 19:37 Last Admin: 02/20/18 04:12 Dose: 1 tab Repaglinide (Prandin) 2 mg PO TID@0730,1130,1630 [facility] Last Admin: 02/19/18 16:22 Dose: 2 mg Rivaroxaban (Xarelto) 15 mg PO BIDWM [facility] PRN Reason: Protocol Last Admin: 02/19/18 16:21 Dose: 15 mg Valsartan (Diovan) 160 mg PO DAILY [facility] Last Admin: 02/19/18 08:33 Dose: 160 mg Zolpidem Tartrate (Ambien) 5 mg PO HS PRN PRN Reason: Insomnia Last Admin: 02/19/18 23:19 Dose: 5 mg - Labs Labs: 02/20/18 05:54 02/20/18 05:54 - Constitutional Appears: Non-toxic, No Acute Distress - Eye Exam Eye Exam: EOMI, PERRL - ENT Exam ENT Exam: Mucous Membranes Moist - Respiratory Exam Respiratory Exam: Clear to Ausculation Bilateral, NORMAL BREATHING PATTERN. absent: Decreased Breath Sounds, Rales, Respiratory Distress - Cardiovascular Exam Cardiovascular Exam: REGULAR RHYTHM, +S1, +S2. absent: Gallop - GI/Abdominal Exam GI & Abdominal Exam: Soft, Normal Bowel Sounds. absent: Guarding, Tenderness, Rebound - Extremities Exam Extremities Exam: Calf Tenderness (Mild, left leg), Normal Capillary Refill. absent: Joint Swelling, Pedal Edema Additional comments: L/foot covered with nonremovable dressing/christiano wrap. - Neurological Exam Neurological Exam: Alert, Awake, Oriented x3 - Psychiatric Exam Psychiatric exam: Normal Affect, Normal Mood - Skin Skin Exam: Warm Assessment and Plan - Assessment and Plan (Free Text) Assessment: Left foot infected ulcer/Uncomplicated DM/Cant rule out OM/DVT C/w Xarelto BID C/W IV abx to complete 6 weeks ID consult appreciate Podiatry consult appreciated: Dressing to be removed today Will f/u with consultants for DC planning Patient will need IV abx as outpatient
[2018-02-20] MEDS: Insulin Regular 100 units/ml SC SCH ×4 (09:22→22:25)
--- NOTE | 2018-02-20 12:34 | CP.PCM.PN ---
Subjective - Date & Time of Evaluation Date of Evaluation: 02/20/18 Time of Evaluation: 08:00 - Subjective Subjective: tolerating IV rx graft in place denies fever Objective - Vital Signs/Intake and Output Vital Signs (last 24 hours): Temp Pulse Resp BP Pulse Ox 97.7 F 78 20 91/61 L 96 02/20/18 07:49 02/20/18 11:24 02/20/18 07:49 02/20/18 07:49 02/20/18 11:24 - Medications Medications: Current Medications Bisacodyl (Dulcolax) 5 mg PO DAILY PRN PRN Reason: Constipation Last Admin: 02/17/18 15:37 Dose: 5 mg Diphenhydramine HCl (Benadryl) 25 mg PO Q6 PRN PRN Reason: Itching / Pruritus Hydrochlorothiazide (Microzide) 12.5 mg PO DAILY [facility] Last Admin: 02/20/18 09:21 Dose: 12.5 mg Cefazolin Sodium 2 gm/ Sodium (Chloride) 100 mls @ 100 mls/hr IVPB Q8@0500,1300 ,2100 [facility] PRN Reason: Protocol Last Admin: 02/20/18 04:29 Dose: 100 mls/hr Insulin Human Regular (Humulin R) 0 units SC ACCU-CHECK [facility] PRN Reason: Protocol Last Admin: 02/20/18 12:01 Dose: Not Given Lactulose (Enulose) 20 gm PO DAILY PRN PRN Reason: Constipation Last Admin: 02/15/18 16:58 Dose: 20 gm Levothyroxine Sodium (Synthroid) 25 mcg PO DAILY@0630 [facility] Last Admin: 02/20/18 06:21 Dose: 25 mcg Multivitamins/Minerals (Therapeutic-M Tab) 1 tab PO HS [facility] Last Admin: 02/19/18 23:21 Dose: 1 tab Nystatin (Nystop Topical Powder) 1 applic TOP BID PRN PRN Reason: Other Last Admin: 02/16/18 22:30 Dose: 1 appful Oxycodone/Acetaminophen (Percocet 5/325 Mg Tab) 1 tab PO Q4 PRN PRN Reason: Pain, severe (8-10) Stop: 02/21/18 19:37 Last Admin: 02/20/18 04:12 Dose: 1 tab Repaglinide (Prandin) 2 mg PO TID@0730,1130,1630 [facility] Last Admin: 02/20/18 09:21 Dose: 2 mg Rivaroxaban (Xarelto) 15 mg PO BIDWM [facility] PRN Reason: Protocol Last Admin: 02/20/18 09:21 Dose: 15 mg Valsartan (Diovan) 160 mg PO DAILY [facility] Last Admin: 02/20/18 09:21 Dose: 160 mg Zolpidem Tartrate (Ambien) 5 mg PO HS PRN PRN Reason: Insomnia Last Admin: 02/19/18 23:19 Dose: 5 mg - Labs Labs: 02/20/18 05:54 02/20/18 05:54 - Constitutional Appears: Non-toxic, Chronically Ill - Head Exam Head Exam: NORMOCEPHALIC - Eye Exam Eye Exam: PERRL - ENT Exam ENT Exam: Mucous Membranes Dry - Neck Exam Neck Exam: absent: Lymphadenopathy - Respiratory Exam Respiratory Exam: Decreased Breath Sounds - Cardiovascular Exam Cardiovascular Exam: REGULAR RHYTHM - GI/Abdominal Exam GI & Abdominal Exam: Distended, Soft. absent: Tenderness - Rectal Exam Rectal Exam: Deferred - Exam Exam: NORMAL INSPECTION - Extremities Exam Extremities Exam: Pedal Edema, Tenderness - Back Exam Back Exam: absent: CVA tenderness (L), CVA tenderness (R) - Neurological Exam Neurological Exam: Alert, Awake, Oriented x3 Neuro motor strength exam: Left Upper Extremity: 5, Right Upper Extremity: 5, Left Lower Extremity: 5, Right Lower Extremity: 5 - Psychiatric Exam Psychiatric exam: Normal Mood - Skin Skin Exam: Dry Assessment and Plan - Assessment and Plan (Free Text) Assessment: s/p DVT infected ulcer with probe to bone left ankle - rx as OM on Ancef
--- NOTE | 2018-02-20 16:27 | CP.PCM.PN ---
Subjective - Date & Time of Evaluation Date of Evaluation: 02/20/18 Time of Evaluation: 16:25 - Subjective Subjective: Podiatry Progress Note- Dr. Estevez 48 year old female patient seen and evaluated at bedside for left ankle wound dehiscence, POD#15 L foot I&D, and POD#7 L delayed closure of wound with graft application. Patient reports that she is feeling well. She is seen laying comfortably in bed, in NAD, and AA0x3. Patient denies acute overnight events. Denies nausea, fever, shortness of breath, chest pains, or chills. Patient reports that she has continued physical therapy. She denies any other pedal complaints. Objective - Vital Signs/Intake and Output Vital Signs (last 24 hours): Temp Pulse Resp BP Pulse Ox 98.2 F 103 H 20 111/59 L 99 02/20/18 15:55 02/20/18 15:55 02/20/18 15:55 02/20/18 15:55 02/20/18 15:55 - Medications Medications: Current Medications Bisacodyl (Dulcolax) 5 mg PO DAILY PRN PRN Reason: Constipation Last Admin: 02/17/18 15:37 Dose: 5 mg Diphenhydramine HCl (Benadryl) 25 mg PO Q6 PRN PRN Reason: Itching / Pruritus Hydrochlorothiazide (Microzide) 12.5 mg PO DAILY [facility] Last Admin: 02/20/18 09:21 Dose: 12.5 mg Cefazolin Sodium 2 gm/ Sodium (Chloride) 100 mls @ 100 mls/hr IVPB Q8@0500,1300 ,2100 [facility] PRN Reason: Protocol Last Admin: 02/20/18 12:47 Dose: 100 mls/hr Insulin Human Regular (Humulin R) 0 units SC ACCU-CHECK [facility] PRN Reason: Protocol Last Admin: 02/20/18 12:01 Dose: Not Given Lactulose (Enulose) 20 gm PO DAILY PRN PRN Reason: Constipation Last Admin: 02/15/18 16:58 Dose: 20 gm Levothyroxine Sodium (Synthroid) 25 mcg PO DAILY@0630 [facility] Last Admin: 02/20/18 06:21 Dose: 25 mcg Multivitamins/Minerals (Therapeutic-M Tab) 1 tab PO HS [facility] Last Admin: 02/19/18 23:21 Dose: 1 tab Nystatin (Nystop Topical Powder) 1 applic TOP BID PRN PRN Reason: Other Last Admin: 02/16/18 22:30 Dose: 1 appful Oxycodone/Acetaminophen (Percocet 5/325 Mg Tab) 1 tab PO Q4 PRN PRN Reason: Pain, severe (8-10) Stop: 02/21/18 19:37 Last Admin: 02/20/18 04:12 Dose: 1 tab Repaglinide (Prandin) 2 mg PO TID@0730,1130,1630 [facility] Last Admin: 02/20/18 12:51 Dose: 2 mg Rivaroxaban (Xarelto) 15 mg PO BIDWM [facility] PRN Reason: Protocol Last Admin: 02/20/18 09:21 Dose: 15 mg Valsartan (Diovan) 160 mg PO DAILY [facility] Last Admin: 02/20/18 09:21 Dose: 160 mg Zolpidem Tartrate (Ambien) 5 mg PO HS PRN PRN Reason: Insomnia Last Admin: 02/19/18 23:19 Dose: 5 mg - Labs Labs: 02/20/18 05:54 02/20/18 05:54 - Constitutional Appears: Well, Non-toxic, No Acute Distress - Extremities Exam Extremities Exam: absent: Calf Tenderness Additional comments: Left lower extremity physical examination: Vasc: DP pulse palpable 2/4. PT pulse unable to be obtained due to location of wound. CFT <3 seconds to all digits. Temperature gradient warm to warm, no increase in warmth medial ankle periwound. Nonpitting edema noted to ankle and foot Ortho: Mild pain on palpation medial ankle Neuro: Gross and protective sensation intact Derm: PriMatrix graft is intact and adhering to medial right ankle ulceration, measuring approximately 4.5 cm x 1.5 with sutures intact. Deep of ulceration can not be appreciated secondary to graft overlay. The graft is leveled to surrounding skin. Dried hematoma noted under graft; the peripheral edges of the graft are incorporating to the surrounding epidermis layer. No flucatance noted , no abscess, no active drainage, no odor, no erythema noted - Neurological Exam Neurological Exam: Alert, Awake, Oriented x3 - Psychiatric Exam Psychiatric exam: Normal Affect, Normal Mood Assessment and Plan - Assessment and Plan (Free Text) Assessment: 48 year old female with 1) infected surgical wound left ankle, resolving POD#15 Incision and drainage of left foot wound with removal of all non-viable soft tissue (DOS 3//18) POD#7 Left foot delayed closure of wound with application of graft (DOS 318) Plan: Patient examined and evaluated Discussed plan in detail with attending Dr. Estevez Labs, vitals, chart reviewed (WBC=5.3, absent leukocytosis) Graft is incorporating to wound Outer layer of dressing cleansed with saline solution, dressed with adaptic, dsd , and kerlix. No ROBIN needed Keep dressing c/d/i. Do not shower. No additional surgeries during this hospital stay Encourage patient to continue PT c/w abx per ID Podiatry will continue to follow while patient in house Patient is stable per podiatry standpoint Recommends Ricci Curtis per patient's request Upon discharge, patient to follow up in wound care clinic with Dr. Estevez every where dressing will be changed at the wound care clinic and continued management of left wound. Dressing is to be kept intact until seen by Dr. Estevez in wound care clinic upon discharge
[2018-02-20] MEDS ORDERED: Petrolatum UD PAK TOP PRN (16:54)
[2018-02-20] MEDS: Multivitamin With Minerals Tab PO SCH (21:05)
[2018-02-21] MEDS: Oxycodone/Acetaminophen 5/325 mg Tab PO PRN ×2 (04:35→14:08)
[2018-02-21] MEDS: ceFAZolin 2 GM in Sodium Chloride 0.9% 100 ML IVPB SCH ×3 (04:37→20:34)
[2018-02-21] MEDS: Levothyroxine 25 MCG TAB PO SCH (06:40)
[2018-02-21] MEDS: Insulin Regular 100 units/ml SC SCH ×4 (07:25→22:52)
--- NOTE | 2018-02-21 07:34 | CP.PCM.PN ---
Subjective - Date & Time of Evaluation Date of Evaluation: 02/21/18 Time of Evaluation: 07:30 - Subjective Subjective: Evaluated with Dr Shine during morning rounds Stable, lying in bed in no acute distress. No acute events overnight. Afebrile. Leg pain improved. Denies SOB, CP, palpitations, vomiting, nausea. Objective - Vital Signs/Intake and Output Vital Signs (last 24 hours): Temp Pulse Resp BP Pulse Ox 97.7 F 93 H 20 112/74 99 02/20/18 20:25 02/20/18 20:25 02/20/18 20:25 02/20/18 20:25 02/20/18 20:25 - Medications Medications: Current Medications Bisacodyl (Dulcolax) 5 mg PO DAILY PRN PRN Reason: Constipation Last Admin: 02/17/18 15:37 Dose: 5 mg Diphenhydramine HCl (Benadryl) 25 mg PO Q6 PRN PRN Reason: Itching / Pruritus Emollient Ointment (Vaseline Oint) 1 pkt TOP DAILY PRN PRN Reason: Dry skin Hydrochlorothiazide (Microzide) 12.5 mg PO DAILY [facility] Last Admin: 02/20/18 09:21 Dose: 12.5 mg Cefazolin Sodium 2 gm/ Sodium (Chloride) 100 mls @ 100 mls/hr IVPB Q8@0500,1300 ,2100 [facility] PRN Reason: Protocol Last Admin: 02/21/18 04:37 Dose: 100 mls/hr Insulin Human Regular (Humulin R) 0 units SC ACCU-CHECK [facility] PRN Reason: Protocol Last Admin: 02/21/18 07:25 Dose: Not Given Lactulose (Enulose) 20 gm PO DAILY PRN PRN Reason: Constipation Last Admin: 02/15/18 16:58 Dose: 20 gm Levothyroxine Sodium (Synthroid) 25 mcg PO DAILY@0630 [facility] Last Admin: 02/21/18 06:40 Dose: 25 mcg Multivitamins/Minerals (Therapeutic-M Tab) 1 tab PO HS [facility] Last Admin: 02/20/18 21:05 Dose: 1 tab Nystatin (Nystop Topical Powder) 1 applic TOP BID PRN PRN Reason: Other Last Admin: 02/16/18 22:30 Dose: 1 appful Oxycodone/Acetaminophen (Percocet 5/325 Mg Tab) 1 tab PO Q4 PRN PRN Reason: Pain, severe (8-10) Stop: 02/21/18 19:37 Last Admin: 02/21/18 04:35 Dose: 1 tab Repaglinide (Prandin) 2 mg PO TID@0730,1130,1630 [facility] Last Admin: 02/20/18 17:04 Dose: 2 mg Rivaroxaban (Xarelto) 15 mg PO BIDWM [facility] PRN Reason: Protocol Last Admin: 02/20/18 17:04 Dose: 15 mg Valsartan (Diovan) 160 mg PO DAILY [facility] Last Admin: 02/20/18 09:21 Dose: 160 mg Zolpidem Tartrate (Ambien) 5 mg PO HS PRN PRN Reason: Insomnia Last Admin: 02/20/18 22:25 Dose: 5 mg - Labs Labs: 02/20/18 05:54 02/20/18 05:54 - Constitutional Appears: Non-toxic, No Acute Distress - Eye Exam Eye Exam: EOMI, Normal appearance, PERRL - ENT Exam ENT Exam: Mucous Membranes Moist - Respiratory Exam Respiratory Exam: Clear to Ausculation Bilateral, NORMAL BREATHING PATTERN. absent: Decreased Breath Sounds, Rales, Rhonchi, Wheezes, Respiratory Distress - Cardiovascular Exam Cardiovascular Exam: REGULAR RHYTHM, +S1, +S2. absent: Gallop - GI/Abdominal Exam GI & Abdominal Exam: Soft, Normal Bowel Sounds. absent: Distended, Firm, Guarding, Rigid, Tenderness, Rebound - Extremities Exam Extremities Exam: Normal Capillary Refill. absent: Calf Tenderness, Pedal Edema Additional comments: Left foot covered with dressing, clean and dry. - Neurological Exam Neurological Exam: Alert, Awake, Oriented x3 - Psychiatric Exam Psychiatric exam: Normal Affect, Normal Mood - Skin Skin Exam: Normal Color, Warm Assessment and Plan - Assessment and Plan (Free Text) Assessment: infected leg ulcer with suspected OM C/W IV abx to complete 6 weeks Wound care done Yesterday by Podiatry team. No acute wound complications observed C/W Current plan ID consult appreciated Podiatry consult appreciated C/W PT
[2018-02-21] MEDS: Bisacodyl 5mg EC Tab PO PRN (08:39)
[2018-02-21] MEDS ORDERED: ceFAZolin IV 2 gm in Dextrose 2 GM/50 ML BAG IVPB SCH (13:00)
[2018-02-21] MEDS: Multivitamin With Minerals Tab PO SCH (21:12)
[2018-02-21 21:21] VITALS: TEMP 97.7
[2018-02-22] MEDS: ceFAZolin 2 GM in Sodium Chloride 0.9% 100 ML IVPB SCH (04:41)
[2018-02-22] MEDS: Levothyroxine 25 MCG TAB PO SCH (05:40)
[2018-02-22] MEDS: Insulin Regular 100 units/ml SC SCH (06:32)
[2018-02-22 07:49] VITALS: BP 97/65; PULSE 88; O2SAT 99
[2018-02-22] MEDS ORDERED: Oxycodone/Acetaminophen 5/325 mg Tab PO PRN (11:11)
--- NOTE | 2018-02-22 11:56 | CP.PCM.PN ---
Subjective - Date & Time of Evaluation Date of Evaluation: 02/22/18 Time of Evaluation: 09:00 - Subjective Subjective: Podiatry Progress Note- Dr. Estevez 48 year old female patient seen and evaluated at bedside for left ankle wound dehiscence, POD#17 L foot I&D, and POD#9 L delayed closure of wound with graft application. She is seen laying comfortably in bed, in NAD, and AA0x3. Dressing is clean, dry, and intact without strikethrough. Patient reports same mild itchy pain to the surgical site. Patient denies acute overnight events. Denies nausea, fever, shortness of breath, chest pains, or chills. She denies any other pedal complaints. Patient understands that she is to keep dressing clean, dry, and intact and to followup with Dr. Estevez every . Objective - Vital Signs/Intake and Output Vital Signs (last 24 hours): Temp Pulse Resp BP Pulse Ox 97.7 F 88 20 97/65 L 99 02/22/18 07:48 02/22/18 07:48 02/22/18 07:48 02/22/18 07:48 02/22/18 07:48 - Labs Labs: 02/20/18 05:54 02/20/18 05:54 - Constitutional Appears: Well, Non-toxic - Extremities Exam Extremities Exam: absent: Calf Tenderness - Back Exam Additional comments: Dressing clean, dry, and intact without strikethrough No calf pain or tenderness with palpation Temperature gradient WNL to the LE CFT WNL Able to wiggle toes - Neurological Exam Neurological Exam: Alert, Awake, Oriented x3 - Psychiatric Exam Psychiatric exam: Normal Affect, Normal Mood Assessment and Plan - Assessment and Plan (Free Text) Assessment: 48 year old female with 1) infected surgical wound left ankle, resolving POD#17 Incision and drainage of left foot wound with removal of all non-viable soft tissue (DOS 02/05/18) POD#9 Left foot delayed closure of wound with application of graft (DOS 02/13/18) Plan: Patient examined and evaluated Discussed plan in detail with attending Dr. Estevez Labs, vitals, chart reviewed Did not change dressing. Will keep dressing c/d/i until visitation with Dr. Estevez in wound care. Do not shower. No additional surgeries during this hospital stay Encourage patient to continue PT c/w abx per ID Podiatry will continue to follow while patient in house Patient is stable per podiatry standpoint Recommends Ricci Curtis per patient's request Upon discharge, patient to follow up in wound care clinic with Dr. Estevez every where dressing will be changed at the wound care clinic and continued management of left wound. Dressing is to be kept intact until seen by Dr. Estevez in wound care clinic upon discharge
--- NOTE | 2018-02-22 12:30 | PN ---
DATE: 02/22/2018 SUBJECTIVE: The patient is seen and examined. Interim events noted. Consults noted and appreciated. Podiatry followup and intervention noted and appreciated. The patient remains in Transitional Care Unit for possible Acute Rehab. The patient feels okay. any complaint of chest pain or shortness of breath. No specific history is noted by nursing staff. PHYSICAL EXAMINATION: GENERAL: The patient is in no acute distress. VITAL SIGNS: Stable. HEART: S1 and S2 normal and regular. LUNGS: Good bilateral air exchange. ABDOMEN: Soft and nontender. EXTREMITIES: Exam of lower extremities is in podiatric dressing status post surgery. No sign of distal complication. No edema. No calf swelling. No tenderness. No acute ischemia. CENTRAL NERVOUS SYSTEM: Exam is essentially unchanged. DIAGNOSTIC DATA: Available diagnostic data reviewed. ASSESSMENT AND PLAN: Overall, the patient is medically stable for possible discharge today. Plan as ordered. Case and plan discussed with the patient. Steve Shine MD
== END 2018-02-22 11:30 | DRG 452 ==
LOC: H.TCU 00:15
PROVIDERS: ADMIT Internal Medicine; ATTEND Internal Medicine
PROC: 3E03329 Introduction of Other Anti-infective into Peripheral Vein, Percutaneous Approach (ICD-10-PCS; principal; 2018-02-15)
PROC: F07Z9FZ Gait Training/Functional Ambulation Treatment using Assistive, Adaptive, Supportive or Protective Equipment (ICD-10-PCS; 2018-02-15)
PROC: F08Z4FZ Home Management Treatment using Assistive, Adaptive, Supportive or Protective Equipment (ICD-10-PCS; 2018-02-15)
DX: T81.31XA Disruption of external operation (surgical) wound, not elsewhere classified, initial encounter (principal); E11.621 Type 2 diabetes mellitus with foot ulcer; E11.69 Type 2 diabetes mellitus with other specified complication; L97.329 Non-pressure chronic ulcer of left ankle with unspecified severity; M86.8X7 Other osteomyelitis, ankle and foot; T81.4XXS Infection following a procedure, sequela; L98.498 Non-pressure chronic ulcer of skin of other sites with other specified severity; B95.61 Methicillin susceptible Staphylococcus aureus infection as the cause of diseases classified elsewhere; I10 Essential (primary) hypertension; K21.9 Gastro-esophageal reflux disease without esophagitis; Z86.718 Personal history of other venous thrombosis and embolism; Z85.42 Personal history of malignant neoplasm of other parts of uterus; Z98.84 Bariatric surgery status; Z90.710 Acquired absence of both cervix and uterus

== ENCOUNTER 2019-02-23 09:11 | Emergency (ER) | payer MEDICAID ==
[2019-02-23 09:14] VITALS: BMI 44.2
--- NOTE | 2019-02-23 10:48 | ED PDOC ---
Lower Extremity Pain/Injury Time Seen by Provider: 02/23/19 09:21 Chief Complaint (Nursing): Lower Extremity Problem/Injury Chief Complaint (Provider): Left ankle pain History Per: Patient History/Exam Limitations: no limitations Current Symptoms Are (Timing): Still Present Additional History Per: Patient Additional Complaint(s): 49yo female, history of diabetes, comes to ER reporting left ankle pain s/p twisting it this morning. She otherwise denies any weakness, numbness, tingling to her left foot and offers no additional complaints. PMD: Korey Frost - Ankle/Foot Description Of Injury: Twisted Past Medical History Reviewed: Historical Data, Nursing Documentation, Vital Signs Vital Signs: Last Vital Signs Temp 98.2 F 02/23/19 09:14 Pulse 90 02/23/19 09:14 Resp 17 02/23/19 09:14 BP 119/69 02/23/19 09:14 Pulse Ox 98 02/23/19 09:14 - Medical History PMH: Arthritis, Diabetes (Type I and II, diet controlled), Gastritis, GERD, HTN Denies: Asthma, Back Problems, HIV, Chronic Kidney Disease - Surgical History Surgical History: Cholecystectomy, Tonsillectomy (AGE 2) Other surgeries: left ankle surgery - Family History Family History: States: Unknown Family Hx - Immunization History Hx Tetanus Toxoid Vaccination: No Hx Influenza Vaccination: Yes Hx Pneumococcal Vaccination: Yes - Home Medications Home Medications: Ambulatory Orders Medication Instructions Recorded Multivit,Iron,Min 5/Folic Acid 1 tab PO HS 05/25/15 [Strovite Forte Caplet] Repaglinide [Prandin] 2 mg PO TID 11/20/17 Bisacodyl [Dulcolax] 5 mg PO DAILY PRN ect 02/07/18 Insulin Human Regular [HumuLIN R] 0 units SC ACCU-CHECK ml 02/07/18 Lactulose [Enulose] 10 gm PO DAILY PRN udc 02/07/18 Levothyroxine [Synthroid] 25 mcg PO DAILY@0630 tab 02/07/18 Zolpidem [Ambien] 5 mg PO HS PRN tab 02/07/18 hydroCHLOROthiazide [Microzide] 12.5 mg PO DAILY cap 02/07/18 DiphenhydrAMINE [Benadryl] 25 mg PO Q6 PRN cap 02/14/18 Multimineral/Multivitamin 1 tab PO HS tab 02/14/18 [Therapeutic-M Tab] Repaglinide [Prandin] 2 mg PO TID tab 02/14/18 Rivaroxaban [Xarelto] 15 mg PO BIDWM tab 02/14/18 Valsartan [Diovan] 160 mg PO DAILY tab 02/14/18 oxyCODONE/Acetaminophen [Percocet 1 tab PO Q4 PRN tab 02/14/18 5/325 mg Tab] ceFAZolin 1 gm in NS [Ancef 1GM in 2 mg IVPB Q8 02/22/18 NS] Non-Formulary 1 ea .ROUTE Q6 #1 ea 02/23/19 traMADol [Ultram] 50 mg PO Q8 #10 tab 02/23/19 - Allergies Allergies/Adverse Reactions: Allergies Allergy/AdvReac Type Severity Reaction Status Date / Time piperacillin [From Zosyn] Allergy RASH Verified 11/23/18 15:33 tazobactam [From Zosyn] Allergy RASH Verified 11/23/18 15:33 Review of Systems ROS Statement: Except As Marked, All Systems Reviewed And Found Negative Musculoskeletal: Positive for: Other (left ankle pain) Neurological: Negative for: Weakness, Numbness Physical Exam - Reviewed Nursing Documentation Reviewed: Yes Vital Signs Reviewed: Yes - Physical Exam Appears: Positive for: No Acute Distress Head Exam: Positive for: NORMAL INSPECTION Skin: Positive for: Normal Color Eye Exam: Positive for: Normal appearance Neck: Positive for: Supple Cardiovascular/Chest: Positive for: Regular Rate, Rhythm Respiratory: Positive for: Normal Breath Sounds Pulses-Dorsalis Pedis (L): 2+ Extremity: Positive for: Normal ROM (FROM of left ankle), Other (normal sensations; surgical scar noted to posterior left ankle). Negative for: Tenderness, Deformity, Swelling Neurological/Psych: Positive for: Awake, Alert, Normal Tone, Oriented (x 3) - ECG O2 Sat by Pulse Oximetry: 98 (RA) Pulse Ox Interpretation: Normal Medical Decision Making Medical Decision Making: Left ankle pain Plan: -- XR left ankle -- XR left foot 1045 Case discussed with podiatry resident XR reviewed, no clinically significant abnormalities; no fractures or dislocations. Patient instructed on crutch use, stable for discharge home. Scribe Attestation: Documented by Sweta Tabor, acting as a scribe for Arturo Milton MD. Provider Scribe Attestation: All medical record entries made by the Scribe were at my direction and personally dictated by me. I have reviewed the chart and agree that the record accurately reflects my personal performance of the history, physical exam, medical decision making, and the department course for this patient. I have also personally directed, reviewed, and agree with the discharge instructions and disposition. Disposition - Clinical Impression Clinical Impression: Ankle sprain - Patient ED Disposition Is Patient to be Admitted: No Counseled Patient/Family Regarding: Studies Performed, Diagnosis, Need For Followup, Rx Given - Disposition Referrals: Delfino Monique DPM [[facility] Pod[facility]] - Disposition: Routine/Home Disposition Time: 11:50 Condition: FAIR Prescriptions: Non-Formulary 1 ea .ROUTE Q6 #1 ea traMADol [Ultram] 50 mg PO Q8 #10 tab Instructions: Ankle Sprain (DC) Forms: [employer] (Greek)
[2019-02-23 11:15] VITALS: BP 108/60; PULSE 89; RESP 20; TEMP 98.6
[2019-02-23 11:47] VITALS: O2SAT 98
--- NOTE | 2019-02-23 16:10 | RAD ---
Date of service: 02/23/2019 PROCEDURE: Left Foot Radiographs. HISTORY: trauma COMPARISON: None. TECHNIQUE: 3 views obtained. FINDINGS: BONES: No acute fracture. Severe demineralization is seen throughout the left foot. A plantar calcaneal spur is noted. JOINTS: Normal. SOFT TISSUES: Normal. OTHER FINDINGS: None. IMPRESSION: No acute fracture.
--- NOTE | 2019-02-23 16:13 | RAD ---
Date of service: 02/23/2019 PROCEDURE: Left Ankle Radiographs. HISTORY: trauma COMPARISON: 11/11/2018 TECHNIQUE: 3 views obtained. FINDINGS: BONES: Severe diffuse demineralization. No acute fracture. Plantar calcaneal spur noted. No lytic or blastic osseous lesion. JOINTS: Normal. No osteoarthritis. Ankle mortise maintained. Talar dome intact SOFT TISSUES: Normal. OTHER FINDINGS: None. IMPRESSION: No acute fracture.
== END 2019-02-23 11:14 | disposition home or self-care (01) ==
LOC: H.ER 09:11
DX: S93.402A Sprain of unspecified ligament of left ankle, initial encounter (principal); X50.1XXA Overexertion from prolonged static or awkward postures, initial encounter; I10 Essential (primary) hypertension; Z79.4 Long term (current) use of insulin; E11.9 Type 2 diabetes mellitus without complications; Z88.0 Allergy status to penicillin